=== PATIENT | female | born 1975 | race Caucasian/White ===

== ENCOUNTER 2018-01-14 15:00 | Outpatient (REF) | payer OTHER, SELFPAY ==
[2018-01-18 13:56] LABS: Chlamydia Result Negative; GC Result Negative; Specimen Description CERVIX
== END 2018-01-14 15:01 ==
LOC: LBN 15:00
PROVIDERS: PCP Family Medicine; Visit Provider Nurse Practitioner Women's Health
DX: Z11.3 Encounter for screening for infections with a predominantly sexual mode of transmission (principal)
CPT/HCPCS: 87491; 87591

== ENCOUNTER 2018-05-13 01:49 | Outpatient (CLI) | payer OTHER, SELFPAY ==
--- NOTE | 2018-05-13 11:30 | DI.MAMMO_ITS ---
SYMPTOM/DIAGNOSIS: SCREENING, FAMILY H/O BREAST CA Z80.3 BILATERAL SCREENING MAMMOGRAM: Mammograms were interpreted according to the usual protocol including computer analysis with CAD system, tomosynthesis and C view imaging. Comparison is made with 2016. The breasts are composed of heterogeneously dense fibroglandular tissue, breast density category C. No suspicious masses or suspicious microcalcifications are seen. There has been no significant change. IMPRESSION: Category 1-C, negative mammogram. Yearly screening mammography is recommended. [facility] ASSESSMENT OF FINDINGS: Negative. Category 1. Patient will receive a letter notifying them of these results. Bi-RADS category C. The breasts are heterogeneously dense, which may obscure small masses.
== END 2018-05-13 02:09 ==
PROVIDERS: PCP Family Medicine; Visit Provider Nurse Practitioner
DX: Z12.31 Encounter for screening mammogram for malignant neoplasm of breast (principal); Z80.3 Family history of malignant neoplasm of breast
CPT/HCPCS: 77063; 77067

== ENCOUNTER 2020-03-12 11:29 | Outpatient (REF) | payer OTHER, SELFPAY ==
--- NOTE | 2020-03-12 10:30 | PAPFT_PTH ---
PATIENT: Lenka Landeros LOC: [facility] U#:[id number] AGE/SX: 44/F ROOM: RE03/12/[address]: Agustina Pena NP : 1975 BED: DIS: 03/12/2020 SPEC #: [id number] RECD: 03/12/20 18:32 STATUS: MAGNUS REQ #: [id number] SEBASTIEN: 03/12/20 10:[address]: Agustina Pena NP DEPT: [facility] Cytology RECD BY: Shellie Catherine ENTERED: 03/12/20 18:32 SP TYPE: PAPFT OTHR DR: Isabela Mitchell Tissues: 1 - CX/ENDOCX FOR PAP SMEARS Procedures: PAP THIN PREP/UVM Screening HPV DNA PROBE Comments: [id number]
== END 2020-03-12 11:49 ==
LOC: LBN 11:29
PROVIDERS: PCP Family Medicine; Visit Provider Nurse Practitioner Women's Health
DX: Z12.4 Encounter for screening for malignant neoplasm of cervix (principal); Z11.51 Encounter for screening for human papillomavirus (HPV)
CPT/HCPCS: 88142; 87624

== ENCOUNTER 2020-04-04 01:47 | Outpatient (CLI) | payer OTHER, SELFPAY ==
--- NOTE | 2020-04-04 15:32 | DI.MAMMO_ITS ---
EXAM: MG MAMMO SCREENING CLINICAL HISTORY: screening,Z12.39 TECHNIQUE: Bilateral full field digital CC and MLO mammographic images were obtained with 3D tomosyn thesis and utilizing computer aided detection (CAD). COMPARISON: Available for comparison. FINDINGS: Masses/Architectural Distortion: None seen. Microcalcifications: No suspicious pleomorphic-type are seen. Skin Thickening/Nipple Retraction: None. IMPRESSION: 1. No significant interval change with no specific features of malignancy noted. 2. Unless there is more urgent need, screening mammography is recommended, as per [employer] guidelines. BI-RADS Category 1 - Negative Breast Density - Category C - Heterogeneously dense The mammogram demonstrates the patient's breast tissue is dense. Dense breast tissue is very common a nd is not abnormal but dense breast tissue can make it harder to find cancer on a mammogram. Also, de nse breast tissue may increase their breast cancer risk. This information about the result of the [facility] mogram report was provided to the patient to raise their awareness. Use this report when you speak wi th the patient about their risks for breast cancer, which includes their family history. At that time , you may recommend for more screening tests (Ultrasound or MRI) as they might be useful based on the ir risk. A negative radiographic report should not delay biopsy if a dominant or clinically suspicious mass is present. Up to ten percent of cancers are not identified on mammography. A negative report may reinforce clinical impression. Adenosis and dense breasts may obscure an underlying neoplasm. False positive reports average 6 to 10%. Patient will receive a letter notifying them of these results.
== END 2020-04-04 02:07 ==
PROVIDERS: PCP Family Medicine; Visit Provider Nurse Practitioner Women's Health
DX: Z12.31 Encounter for screening mammogram for malignant neoplasm of breast (principal)
CPT/HCPCS: 77063; 77067

== ENCOUNTER 2020-04-18 08:37 | Outpatient (REF) | payer OTHER, SELFPAY ==
[2020-04-18 21:51] LABS: HCT 43.1 % (36.0-46.0); HGB 13.8 g/dL (11.2-15.7); MCH 30.5 pg (27.0-33.0); MCV 95.4 fL (80-95); Platelet Count 260 10^3/uL (130-400); RBC 4.52 10^6/uL (3.93-5.22); RDW 13.2 % (11.7-14.6); RDW-SD 46.7 fL; WBC 6.48 10^3/uL (4.4-10.8)
[2020-04-18 22:10] LABS: ALT 20 U/L (14-59); AST 11 U/L (15-37); Calculated LDL 167 mg/dL (<100); Cholesterol 240 mg/dL (<200); HDL Cholesterol 49 mg/dL (40-60); T4 7.3 ug/mL (4.7-13.3); TSH 2.32 uIU/mL (0.36-3.74); Triglyceride 121 mg/dL (<150)
[2020-04-19 21:51] LABS: T3,Free 3.4 pg/mL (2.8-5.3)
[2020-04-19 22:05] LABS: T3, Total 127 ng/dL (97-169)
== END 2020-04-18 08:57 ==
LOC: NCHCN 08:37
PROVIDERS: PCP Family Medicine; Visit Provider Nurse Practitioner Family
DX: Z00.00 Encounter for general adult medical examination without abnormal findings (principal); R53.83 Other fatigue; Z13.220 Encounter for screening for lipoid disorders
CPT/HCPCS: 80061; 85027; 84436; 84443; 84450; 84460; 84480; 84481

== ENCOUNTER 2020-05-29 14:57 | Emergency (ER) | payer OTHER, SELFPAY ==
--- NOTE | 2020-05-29 14:59 | ED.GENADUL_ITS ---
Discharge Plan Disposition Patient Disposition: HOME Condition: Stable Discharge Details Clinical Impression: Allergic reaction, Lesion of mouth Primary Care Provider: Isabela Mitchell ED Provider: Radha Truong Home Meds and New Rx's Prescriptions: New prednisone 20 mg tablet See Rx Instructions .ROUTE .COMPLEX Qty: 12 RF: 0 mupirocin 2 % ointment 1 applic TP BID Qty: 15 RF: 0 epinephrine 0.3 mg/0.3 mL auto-injector 0.3 ml SC ONCE PRN (Reason: anaphylaxis) Qty: 2 RF: 0 Continued multivitamin [Daily Multi-Vitamin] Tablet 1 tab PO DAILY RF: 0 Calcium Magnesium + D 1 EACH tablet 1 cap PO DAILY RF: 0 Mirena 1 EACH intrauterine device 1 ea Intrauterine ONCE Qty: 1 RF: 0 pregabalin 75 mg capsule 75 mg PO TID RF: 0 Discharge Instructions Instructions: Impetigo (ED), General Allergic Reaction (ED) Additional Instructions: Refrain from contact with any exposure to peanut butter or peanuts in the future as this appears to likely be the cause of your symptoms. Take the steroids until finished. Use the topical antibiotic ointment as directed. If you develop any severe allergic reaction such as difficulty breathing or vomiting, return immediately to the emergency department. You should also use the EpiPen as directed. Follow-up with your primary care doctor in 1 week for reevaluation and for referral to an interior painter for allergy testing. Return to the emergency department with any worsening or new concerning symptoms. Discharge Data Discharge Date/Time-TO BE ENTERED AT DEPARTURE: 05/29/20 15:55 Discharge Physician: Radha Truong Medical Decision Making 44yo F w/ a h/o presents to the ED w/ a c/o lip swelling and weeping lesions on her lip since possible exposure to peanut butter yesterday. She was able to tolerate peanut butter as a child but over the last several years has had similar reactions. Today's episode was worse in that she has had weeping lesions and worsening swelling. Swelling since this morning has improved but still has lesions remaining. She has minimal edema around edges of lip but no intraoral edema including tongue and floor of mouth. She has tiny vesicles with yellow crusting noted on outer edge of upper and lower lip. No evidence of cellulitis. Normal oropharynx. No submandibular swelling, drooling or trismus. Neck normal to inspection. Her lungs are clear. Abdomen soft nontender. Suspect that this is most likely a reaction to peanut butter as she has had this in the past. Also consider possible secondary bacterial infection or signific ant inflammatory reaction. Will treat with oral steroids and topical mupirocin. Patient also given an EpiPen. Medical Records Medical records reviewed: Yes I reviewed the patient's medical records. HPI General Mode of arrival: ambulatory . Date/Time Provider Initiated Documentation: 05/29/20 14:57 . Limitations to Documentation: no limitations . Information obtained by: patient . HPI Narrative: Patient is a 44-year-old female who presents with swelling around her lips and tingling around her face that started yesterday afternoon after possible exposure to peanut butter. Patient states she made herself an almond butter and jelly sandwich and thinks that the knife that was used was possibly used by her family for regular peanut butter. She states she was able to tolerate peanut butter as a child but over the past several years has had similar reactions of lip swelling after possible peanut butter or peanut exposure. She states after the possible exposure yesterday she noted swelling and tingling around her lip and face around her lips. She states she felt some tingling in her upper body but this then resolved. She states she awoke this morning to significant swelling of both of her lips which has since improved since then. She states she notes today that she has had weeping lesions around her lips which have had some yellow fluid leakage. She denies any fever, tongue swelling, difficulty swallowing, throat swelling, shortness of breath, wheezing, nausea, vomiting or abdominal pain. She denies any other known exposures. She states she thought possibly it could be due to Chapstick but has used this before and has had no reaction. She states she called her primary care doctor today and they advised her to come to the ER for further evaluation. She denies any chance of . Related Data Home Medications Medication Instructions Recorded Confirmed Calcium Magnesium + D 1 cap PO DAILY 03/27/15 05/29/20 Mirena 1 ea INTRAUTERINE ONCE #1 implant 01/14/18 05/29/20 multivitamin 1 tab PO DAILY 03/12/20 05/29/20 epinephrine 0.3 ml SC ONCE PRN #2 each 05/29/20 mupirocin 1 applic TP BID #15 gm 05/29/20 prednisone See Rx Instructions .ROUTE 05/29/20 .COMPLEX #12 tab pregabalin 75 mg PO TID 05/29/20 05/29/20 Previous Rx's Medication Instructions Recorded Mirena 1 ea INTRAUTERINE ONCE #1 implant 01/14/18 epinephrine 0.3 ml SC ONCE PRN #2 each 05/29/20 mupirocin 1 applic TP BID #15 gm 05/29/20 prednisone See Rx Instructions .ROUTE 05/29/20 .COMPLEX #12 tab Allergies Allergy/AdvReac Type Severity Reaction Status Date / Time peanut Allergy Severe Unverified 03/04/18 08:33 Penicillins Allergy Severe respiratory Unverified 03/04/18 08:33 depression codeine AdvReac Severe Unverified 03/04/18 08:33 opium (anthroposophic) AdvReac Severe severe Unverified 03/04/18 08:33 vomiting. Review of Systems All systems reviewed & are unremarkable except as noted in HPI and below Constitutional Constitutional: Reports as per HPI, Denies chills and Denies fever(s) Eyes Eyes: Denies blurry vision ENT Ears, Nose, Mouth, and Throat: Denies dizziness, Denies sore throat and Denies throat swelling Cardiovascular Cardiovascular: Denies chest pain and Denies dyspnea Respiratory Respiratory: Denies cough and Denies dyspnea Gastrointestinal Gastrointestinal: Denies abdominal pain, Denies diarrhea and Denies vomiting Genitourinary Genitourinary: Denies hematuria and Denies dysuria Musculoskeletal Musculoskeletal: Denies back pain and Denies numbness Integumentary/Breasts Skin/Breast: Denies lesions and Denies rash Neurologic Neurologic: Denies dizziness, Denies localized weakness and Denies numbness Allergic/Immunologic Allergic/Immunologic: Denies throat swelling [facility] Medical History (Updated 05/29/20 @ 20:54 by Radha Truong DO) Fibromyalgia (10/24/14) IUD surveillance Osteoarthrosis (10/24/14) Surgical History (Updated 05/29/20 @ 20:54 by Radha Truong DO) No significant past surgical history Family History (Updated 03/12/20 @ 10:29 by Agustina Pena NP) Sister Personal history of malignant neoplasm breast ca 36 yo Mother Breast cancer Stage 4, chosen not to treat Father Heart disease Grandfather Colon cancer Other Leukemia Ovarian tumor (benign) Social History Smoking/Tobacco Use Status: Never Smoking risk assessment performed?: Yes Drug use: Never Do you feel safe at home: Yes Do you feel safe in your relationship?: Yes Female Reproductive History Menstrual control method: progestin IUCD History History 4 Para 4 Hx # Term Pregnancies Multiple births Hx # Pregnancies Ectopic pregnancies AB induced Hx Number of Living Children AB spontaneous Exam Const General: cooperative, healthy appearing and no acute distress HENMT Head: normal to inspection Ears: hearing grossly normal bilaterally, external ears normal and TM's normal bilaterally General nose exam: external nose normal Mouth: tongue normal, no drooling, no trismus and other (There is minimal edema noted around lips.) Mouth/tongue images: 1. 2 small vesicles approximately 2 mm in size with yellow crusting. There is no active drainage. No significant tenderness to palpation. 2. Very small 1 mm vesicles with minimal erythema and yellow crusting. No significant tenderness palpation. No active drainage. Teeth and gingiva: dentition normal Throat: posterior oropharynx normal Eyes General: appearance normal, both eyes and all related structures Pupils: PERRL EOM: EOM intact bilaterally Neck Neck: normal visual inspection, no meningeal signs, trachea midline, supple, no anterior neck swelling and No submandibular swelling Lymphatic: no lymphadenopathy noted Chest Chest: normal inspection of the chest and no tenderness Resp Effort & Inspection: normal respiratory effort and able to speak in complete sentences Auscultation: clear to auscultation bilaterally Cardio Rate: regular rate Rhythm: regular rhythm GI Inspection: normal to inspection Palpation: soft, not firm, not rigid and nontender Auscultation: normal bowel sounds Back/Spine/Pelvis Thoracic/Lumbar Spine: thoracic and lumbar spine normal to inspection Pelvis: no pain with anterior-posterior compression Skin General skin exam: no rashes or lesions noted Neuro General: patient alert, patient awake and patient oriented x3 Cognition: normal cognition Speech: speech normal Motor: muscle tone normal throughout Sensory Exam: no sensory deficits noted Extrem General: normal to inspection, full ROM, capillary refill normal, no calf tenderness bilaterally and no edema Psych Appearance: grossly normal Mental Status: mental status grossly normal Speech and Movement: speech and movement normal Affect: normal affect
[2020-05-29 15:00] VITALS: BP 143/79; PULSE 77; RESP 17; TEMP 36.6; O2SAT 98
== END 2020-05-29 15:55 | disposition home or self-care (01) ==
PROVIDERS: Emergency Provider Physician Assistant; PCP Family Medicine
DX: T78.01XA Anaphylactic reaction due to peanuts, initial encounter (principal); S00.521A Blister (nonthermal) of lip, initial encounter; R60.0 Localized edema; X58.XXXA Exposure to other specified factors, initial encounter; Z91.010 Allergy to peanuts
CPT/HCPCS: 99283; 99284

== ENCOUNTER 2020-12-22 13:04 | Outpatient (REF) | payer OTHER, SELFPAY ==
[2020-12-22 21:28] LABS: Abs Immature Grans 0.03 10^3/uL (0.0-0.06); Absolute Basophil Count 0.03 10^3/uL (0.0-0.2); Absolute Eosinophil Count 0.26 10^3/uL (0.0-0.7); Absolute Lymphocyte Count 1.55 10^3/uL (1.2-3.4); Absolute Monocyte Count 0.63 10^3/uL (0.1-0.8); Basophils % 0.4; Eosinophils % 3.1; HCT 41.9 % (36.0-46.0); HGB 13.6 g/dL (11.2-15.7); Immature Grans % 0.4; Lymphocytes % 18.2; MCH 31.1 pg (27.0-33.0); MCHC 32.5 % (32.0-36.0); MCV 95.9 fL (80-95); MPV 11.1 fL (8.0-11.0); Monocytes % 7.4; Neutrophils % 70.5; Nucleated RBC 0 %; Platelet Count 246 10^3/uL (130-400); RBC 4.37 10^6/uL (3.93-5.22); RDW 12.1 % (11.7-14.6); RDW-SD 43.5 fL
[2020-12-22 21:39] LABS: ALT 20 U/L (14-59); AST 12 U/L (15-37); Albumin 3.7 g/dL (3.4-5.0); Alkaline Phosphatase 47 U/L (46-116); Anion Gap 8.2 mmol/L (3-11); BUN 10 mg/dL (7-18); Bilirubin, Total 0.3 mg/dL (0.2-1.0); CO2 27.8 mmol/L (21.0-32.0); CREATININE 0.7 mg/dL (0.55-1.02); Calcium 8.5 mg/dL (8.5-10.1); Chloride 107 mmol/L (98-107); Glucose 92 mg/dL (74-106); Potassium 4.1 mmol/L (3.5-5.1); Sodium 143 mmol/L (136-145); Total Protein 6.7 g/dL (6.4-8.2)
== END 2020-12-22 13:05 | disposition home or self-care (01) ==
LOC: LBN 13:04
PROVIDERS: PCP Family Medicine; Visit Provider Physician Assistant Medical
DX: R10.9 Unspecified abdominal pain (principal)
CPT/HCPCS: 80053; 85025

== ENCOUNTER 2021-02-21 11:23 | Outpatient (CLI) | payer OTHER, SELFPAY ==
[2021-02-21 14:58] LABS: Abs Immature Grans 0.03 10^3/uL (0.0-0.06); HCT 41.1 % (36.0-46.0); HGB 13.3 g/dL (11.2-15.7); MCH 30.8 pg (27.0-33.0); MCHC 32.4 % (32.0-36.0); MCV 95.1 fL (80-95); MPV 10.3 fL (8.0-11.0); Nucleated RBC 0 %; Platelet Count 253 10^3/uL (130-400); RBC 4.32 10^6/uL (3.93-5.22); RDW 12.5 % (11.7-14.6); RDW-SD 43.6 fL; WBC 9.78 10^3/uL (4.4-10.8)
[2021-02-21 15:15] LABS: Absolute Lymphocyte Count 2.84 10^3/uL (1.2-3.4); Absolute Monocyte Count 0.39 10^3/uL (0.1-0.8); Absolute Neutrophil Count 6.55 10^3/uL (1.2-6.7)
[2021-02-21 15:16] LABS: Diff Comment Manual Differential; RBC Morphology Normal
[2021-02-21 16:23] LABS: ALT 20 U/L (14-59); AST 15 U/L (15-37); Alkaline Phosphatase 45 U/L (46-116); Anion Gap 6.3 mmol/L (3-11); BUN 8 mg/dL (7-18); Bilirubin, Total 0.5 mg/dL (0.2-1.0); CO2 30.7 mmol/L (21.0-32.0); CREATININE 0.9 mg/dL (0.55-1.02); Calcium 9.1 mg/dL (8.5-10.1); Chloride 106 mmol/L (98-107); Glucose 86 mg/dL (74-106); Sodium 143 mmol/L (136-145)
== END 2021-02-21 11:24 | disposition home or self-care (01) ==
LOC: LBO 11:26
PROVIDERS: PCP Family Medicine; Visit Provider Dentist Oral and Maxillofacial Pathology
DX: G50.8 Other disorders of trigeminal nerve (principal)
CPT/HCPCS: 36415; 80053; 85025

== ENCOUNTER 2021-03-21 01:25 | Outpatient (CLI) | payer OTHER, SELFPAY ==
--- NOTE | 2021-03-21 | DI.MRI_ITS ---
Exam(s) MR ORBIT FACIAL NECK WO/W EXAM: MR ORBIT FACIAL NECK WO/W CLINICAL HISTORY: ATYPICAL FACIAL PAIN,G50.1 TECHNIQUE: Multiplanar multisequence MRI was performed. CONTRAST MATERIAL: IV Contrast: mL of Magnevist contrast administered. COMPARISON: No exams were available for comparison FINDINGS: Axial FLAIR whole brain sequence reveals no abnormal intra-axial signal. Ventricles are not enlarged or shifted. No significant findings in the orbits. Vessels: No evidence of aneurysm. No significant stenosis nor occlusion. A thin posterior communicati ng artery is noted on the left side of the zgiakh-mn-Umpwap. Pituitary gland/cavernous sinuses: No evidence of pituitary mass nor mass in the paranasal sinuses. I ntracavernous internal carotid arteries exhibit normal flow void. Internal auditory canals: There are no masses in the cerebellopontine angles. No evidence of intra ca nalicular mass. Seventh and 8th cranial nerves appear unremarkable bilaterally. Trigeminal (V) cranial nerves: No abnormal signal in the hananh. Both trigeminal nerves appear unremark able as they course anteriorly towards Meckel's cave, without evidence of mass in these nerves nor co mpression by adjacent normal extra-axial structures. No obvious compression by vascular structures. T he superior cerebellar arteries (which are often the culprit vessels) do not appear to impinge upon t he extra-axial 5th nerves Third (III) cranial nerves: Both appear unremarkable within the interpeduncular fossa as they head f orward towards the cavernous sinuses. OTHER: There is no abnormal enhancing extra-axial mass contiguous with the left side of the medulla oblongat a, this slightly lobulated mass measuring 7 x 10 by 8 millimeters, in proximity to cranial nerve 9 (I X). This exhibits relative uniform enhancement post contrast injection. Main differential diagnosis w ould be metastases, or primary tumor, meningioma or otherwise. IMPRESSION: 1. No mass within or adjacent to the 5th-trigeminal nerves and no evidence of obvious adjacent tingin g vascular loop. 2. Incidentally noted is a lobulated enhancing lesion adjacent to the left side of the medulla measur ing approximately 7 x 10 x 8 millimeters. Suspicious for neoplasm. DATA REPOSITORY:
[2021-03-21] MEDS: Gadoterate meglumine 20 ML VIAL 10 ML IVP (08:44)
[2021-03-21] MEDS: Normal Saline Flush 10 ML SYR IVP (08:47)
--- NOTE | 2021-03-21 10:36 | DI.VRAD_ITS ---
PROCEDURE INFORMATION: Exam: MR Face Without and With Contrast Exam date and time: 03/21/2021 9:09 AM Age: 45 years old Clinical indication: Other: Atypical facial pain; Additional info: Trigeminal nerve issue to the last 10 yrs, . facial pain on the RT side getting worse for the last month . TECHNIQUE: Imaging protocol: MR of the face was performed without and with contrast. Contrast material: 10 MMOL DOTAREM; Contrast volume: 19 ml; Contrast route: INTRAVENOUS (IV); COMPARISON: CT cranial 02/03/2019 9:11 AM FINDINGS: Orbital cavity: Orbits unremarkable with symmetric nonenlarged extra-ocular muscles, symmetric nonenlarged lacrimal glands, and no evidence mass. Nasopharynx: Unremarkable. Oropharynx: Unremarkable. Submandibular/Parotid glands: Visualized submandibular and parotid glands are unremarkable. Paranasal sinuses: There is a very small left maxillary sinus retention cyst or polyp. Brain: FLAIR images through brain show no abnormal signal or evidence white matter disease. Is a septum is mildly deviated to right. There is 7 mm x 10 mm x 8.5 mm lobular enhancing extra-axial mass along the left lateral aspect of medulla. This is in proximity to cranial nerves 9. This is separate from cranial nerves 7/ 8 complex. This is an unusual appearance. Would consider schwannoma, ependymoma, choroid plexus tumor, vascular lesion such as hemangioma, metastases, and meningioma (although atypical appearance). There is no abnormal signal in brainstem along course of trigeminal nuclei. On axial images, small vascular channels come close to the cisternal left trigeminal nerve, however these are seen to be by spinal fluid on the coronal T2 weighted images and not directly contact the nerve. No vascular channels are seen to contact the cisternal course of the right trigeminal nerve. There is normal fluid signal within Meckel's caves bilaterally. Cavernous sinuses are symmetric and show no enlargement or evidence of mass. There is no contrast enhancement of cisternal trigeminal nerves. There is no evidence of abnormal parenchymal contrast enhancement. Lymph nodes: No lymphadenopathy. Soft tissues: Parotid and submandibular glands appear symmetric and nonenlarged with no evidence mass. Squilgeer spaces are unremarkable. There are normal fat planes in superior orbital fissures, pterygopalatine fossas and parapharyngeal spaces. There is symmetric and unremarkable appearance of region of foramen ovale and rotundum bilaterally. Bones/joints: There is no neural foraminal narrowing or spinal stenosis in upper cervical spine at C2-C3 through C4-C5. There is no abnormal signal within the visualized upper spinal cord. IMPRESSION: 1. Small mass along left side of medulla with differential diagnosis as above. 2. No mass or explanation for trigeminal neuralgia. Dictated and Authenticated by: Esmer Flores MD. Ordering:SHLOMO Mar MD
== END 2021-03-21 01:45 ==
PROVIDERS: PCP Family Medicine; Visit Provider Family Medicine
DX: G50.1 Atypical facial pain (principal); R93.89 Abnormal findings on diagnostic imaging of other specified body structures
CPT/HCPCS: 70543

== ENCOUNTER 2021-05-21 01:54 | Outpatient (CLI) | payer OTHER, SELFPAY ==
--- NOTE | 2021-05-21 | DI.CT_ITS ---
Exam(s) CT CHEST/ABD/PEL W EXAM: CT CHEST/ABD/PEL W CLINICAL HISTORY: BRAIN MASS,PRIMARY,? METS,G93.89 TECHNIQUE: CT examination of the chest, abdomen, and pelvis was performed utilizing intravenous inf usion of 100 cc of Omnipaque 350 with biphasic hepatic imaging. Oral contrast was also administered. COMPARISON: No exams were available for comparison FINDINGS: Lungs are clear. No pleural effusion. No pleural based mass. No mediastinal or hilar adenopathy. No axillary or supraclavicular adenopathy. Tracheobronchial rosario e appears intact. No evidence of pulmonary embolic disease. Unremarkable appearance of thoracic aorta and major branch vessels. The liver appears normal except for the presence of a few fluid attenuation well-circumscribed lesion s, the largest in the right lobe measuring 31 millimeters in greatest diameter. The appearance is co nsistent with multiple hepatic cysts. Spleen is unremarkable in appearance. Pancreas appears intact. Adrenals appear normal. Kidneys are unremarkable in appearance with no renal mass, or hydronephrosis. There is a tiny nonobst ructing left renal stone. Abdominal aorta and major visceral branches appear intact. No focal bowel pathology. Appendix is normal. No evidence of diverticulitis. No abdominal or pelvic adenopathy. No significant abdominal wall hernia. No focal bony lesion identified on scanning of the chest, abdomen, and pelvis. The uterus contains an IUD. Unremarkable follicular appearance of the ovaries by CT criteria. IMPRESSION: Negative CT of the chest, abdomen, and pelvis with biphasic hepatic imaging. RADIATION DOSE DELIVERED: 2,128.17mGy.cm Total DLP 2,128.17mGy.cm Total DLP 23.14mGy CTDIvol RADIATION OPTIMIZATION: All CT scans at this facility use at least one of these dose optimization te chniques: automated exposure control; mA and/or kV adjustment per patient size (includes targeted exa ms where dose is matched to clinical indication); or iterative reconstruction.
[2021-05-21] MEDS: Omnipaque 350 MG/ML 50 ML BTL IJ (09:22)
[2021-05-21] MEDS: Breeza Beverage 473 ML BTL 946 ML PO (09:23)
[2021-05-21] MEDS: Omnipaque 350 MG/ML 100 ML BTL IJ (11:07)
[2021-05-21] MEDS: Normal Saline Flush 10 ML SYR IVP (11:09)
== END 2021-05-21 02:14 ==
PROVIDERS: PCP Family Medicine
DX: G93.89 Other specified disorders of brain (principal); K76.89 Other specified diseases of liver; N20.0 Calculus of kidney; Z97.5 Presence of (intrauterine) contraceptive device
CPT/HCPCS: 74177; 71260; J3490; Q9967

== ENCOUNTER 2021-05-22 22:06 | Emergency (ER) | payer OTHER, SELFPAY ==
[2021-05-22 22:18] VITALS: BP 132/78; PULSE 83; RESP 18; TEMP 36.5; O2SAT 98
--- NOTE | 2021-05-22 22:38 | ED.GENADUL_ITS ---
Discharge Plan Disposition Patient Disposition: HOME Condition: Improving Discharge Details Clinical Impression: Right leg swelling Primary Care Provider: Isabela Mitchell ED Provider: Mayo Jolley Home Meds and New Rx's Prescriptions: Continued multivitamin [Daily Multi-Vitamin] Tablet 1 tab PO DAILY RF: 0 Calcium Magnesium + D 1 EACH tablet 1 cap PO DAILY RF: 0 Mirena 1 EACH intrauterine device 1 ea Intrauterine ONCE Qty: 1 RF: 0 pregabalin 75 mg capsule 75 mg PO DAILY RF: 0 prednisone 20 mg tablet See Rx Instructions .ROUTE .COMPLEX Qty: 12 RF: 0 epinephrine 0.3 mg/0.3 mL auto-injector 0.3 ml SC ONCE PRN (Reason: anaphylaxis) Qty: 2 RF: 0 Discharge Instructions Additional Instructions: Our radiology department will call you tomorrow to arrange timing for your ultrasound. The radiology office #[phone]. Return to the ER for any acute concerns in the interim. Discharge Data Discharge Date/Time-TO BE ENTERED AT DEPARTURE: 05/22/21 22:53 Medical Decision Making 45-year-old female presents with intermittent episodes of right lower extremity pain and swelling over approximately 3 weeks time. She is recently been treated with high-dose prednisone which she is tapering off. This is resulted in some edema and weight gain. She has not had any chest pain or shortness of breath. On exam the patient does have mild edematous changes to the bilateral lower extremity, I do not appreciate significant asymmetry. Discussed with her obtaining follow-up ultrasound tomorrow morning. We discussed the risks and benefits of anticoagulation with a shot of Lovenox overnight which she wishes to defer. Patient is stable and appropriate for outpatient plan of care for tomorrow as outlined above HPI General Mode of arrival: ambulatory . Date/Time Provider Initiated Documentation: 05/22/21 22:07 . Limitations to Documentation: no limitations . Information obtained by: patient . History of Present Illness 45 year old F presents to the emergency department with the chief complaint of Right leg pain and swelling, described as moderate, Quality is described as dull, and is localized to the right and lower extremity. Patient reports no radiation. Patient started experiencing this day(s) and it has been intermittent. No relieving factors improve symptom(s), No exacerbating factors reported . Patient notes denies chest pain, shortness of breath and syncope. Patient did receive the following treatments prior to arrival, none Related Data Home Medications Medication Instructions Recorded Confirmed Calcium Magnesium + D 1 cap PO DAILY 03/27/15 05/22/21 Mirena 1 ea INTRAUTERINE ONCE #1 implant 01/14/18 05/22/21 multivitamin 1 tab PO DAILY 03/12/20 05/29/20 epinephrine 0.3 ml SC ONCE PRN #2 each 05/29/20 05/22/21 prednisone See Rx Instructions .ROUTE 05/29/20 .COMPLEX #12 tab pregabalin 75 mg PO TID 05/29/20 05/29/20 Previous Rx's Medication Instructions Recorded Mirena 1 ea INTRAUTERINE ONCE #1 implant 01/14/18 epinephrine 0.3 ml SC ONCE PRN #2 each 05/29/20 prednisone See Rx Instructions .ROUTE 05/29/20 .COMPLEX #12 tab Allergies Allergy/AdvReac Type Severity Reaction Status Date / Time peanut Allergy Severe Verified 05/23/21 15:56 Penicillins Allergy Severe respiratory Verified 05/23/21 15:56 depression codeine AdvReac Severe Verified 05/23/21 15:56 opium (anthroposophic) AdvReac Severe severe Verified 05/23/21 15:56 vomiting. General Stated Complaint: GenMedical NORMA: 3 Review of Systems Narrative: Recent course of prednisone for trigeminal neuralgia with resultant edema and 20 pound weight gain. No chest pain or shortness of breath. 6 systems reviewed and otherwise negative PFSH All Active Problems Right leg swelling (Acute) IUD surveillance (Acute) Vitamin D deficiency (Acute 10/24/14) Family history of breast cancer in sister (Acute 11/14/14) sister at 36 yo, lumpectomy mother, postmenopausal, stage 4, no tx Medical History Fibromyalgia (10/24/14) Osteoarthrosis (10/24/14) Surgical History No significant past surgical history Family History Sister Personal history of malignant neoplasm breast ca 36 yo Mother Breast cancer Stage 4, chosen not to treat Father Heart disease Grandfather Colon cancer Other Leukemia Ovarian tumor (benign) Social History Smoking/Tobacco Use Status: Never Smoking risk assessment performed?: Yes Drug use: Never Substance use type: does not use Do you feel safe at home: Yes Do you feel safe in your relationship?: Yes Female Reproductive History Menstrual control method: progestin IUCD History History 4 Para 4 Hx # Term Pregnancies Multiple births Hx # Pregnancies Ectopic pregnancies AB induced Hx Number of Living Children AB spontaneous Exam Narrative Exam Narrative: GEN: awake, alert, oriented 3. Pleasant, well groomed, interactive. HEAD: Normocephalic, atraumatic ENT: Mucous membranes moist, oropharynx unremarkable, External ear exam unremarkable EYES: PERRL, EOMI NECK: Full ROM, no BERENICE, no menigismus CHEST/RESP: Nontender, clear to auscultation bilateral, no wheeze/rhonchi/rales CARDIOVASCULAR: RRR, no murmur, rub elissa. 2+ Rad pulse bilateral EXT: Full ROM, 1+ edema symmetric bilaterally pretibial, no cords appreciated, no masses. Neuro: Grossly normal neurologic exam, conversant, interactive. Psych: Speech fluent, thoughts congruent, affect normal Course Vital Signs Vital signs: Vital Signs Temperature 36.5 C 05/22/21 22:18 Pulse 83 05/22/21 22:18 Respiratory Rate 18 05/22/21 22:18 Blood Pressure 132/78 05/22/21 22:18 Pulse Oximetry 98 05/22/21 22:18 Temperature 36.5 C 05/22/21 22:18 Temperature Source Tympanic 05/22/21 22:18 Pulse 83 05/22/21 22:18 Respiratory Rate 18 05/22/21 22:18 Respiratory Effort 05/22/21 22:24 Respiratory Depth Normal 05/22/21 22:24 Respiratory Pattern Normal 05/22/21 22:24 Blood Pressure 132/78 05/22/21 22:18 Blood Pressure Position Supine 05/22/21 22:18 Pulse Oximetry 98 05/22/21 22:18 Oxygen Delivery Method Room Air 05/22/21 22:18 Oxygen Flow Rate 0 05/22/21 22:18 Pain Level 7 05/22/21 22:18
== END 2021-05-22 22:53 | disposition home or self-care (01) ==
PROVIDERS: Emergency Provider Emergency Medicine; PCP Family Medicine
DX: R22.41 Localized swelling, mass and lump, right lower limb (principal); M79.604 Pain in right leg; R60.0 Localized edema; T38.0X5A Adverse effect of glucocorticoids and synthetic analogues, initial encounter
CPT/HCPCS: 99281; 99282

== ENCOUNTER 2021-05-23 15:38 | Emergency (ER) | payer OTHER, SELFPAY ==
[2021-05-23 15:44] VITALS: BP 129/62; PULSE 82; RESP 16; TEMP 36.6; O2SAT 97
--- NOTE | 2021-05-23 16:13 | W.ED.GENAD ---
Discharge Plan Disposition Patient Disposition: HOME Condition: Stable Discharge Details Clinical Impression: Right leg swelling Primary Care Provider: Isabela Mitchell ED Provider: Josh Hidalgo Home Meds and New Rx's Prescriptions: Continued multivitamin [Daily Multi-Vitamin] Tablet 1 tab PO DAILY RF: 0 Calcium Magnesium + D 1 EACH tablet 1 cap PO DAILY RF: 0 Mirena 1 EACH intrauterine device 1 ea Intrauterine ONCE Qty: 1 RF: 0 pregabalin 75 mg capsule 75 mg PO DAILY RF: 0 prednisone 20 mg tablet See Rx Instructions .ROUTE .COMPLEX Qty: 12 RF: 0 epinephrine 0.3 mg/0.3 mL auto-injector 0.3 ml SC ONCE PRN (Reason: anaphylaxis) Qty: 2 RF: 0 Discharge Instructions Additional Instructions: Ultrasound was negative. Please watch for new or worsening symptoms and return to the ER for any concerns. Otherwise rest, elevate, cool and/or warm compresses every 2 hours for 20 minutes. As we discussed compression stockings may also be beneficial. I recommend reaching out your primary care provider after the holiday to discuss your ongoing symptoms need for outpatient reevaluation if symptoms persist. Discharge Data Discharge Date/Time-TO BE ENTERED AT DEPARTURE: 05/23/21 16:27 Medical Decision Making 45-year-old female presents for ultrasound results of a right lower extremity ultrasound rule out DVT. Clinically she appears well, nontoxic. Denies chest pain or shortness of breath. Clinically she has mild swelling to her right lower extremity with some ecchymosis but no palpable cord or erythema. Ultrasound reviewed, official radiology report is negative. Discussed ultrasound findings with patient. She is relieved and has no additional questions or concerns. Comfortable discharge at this time. Standard discharge and return precautions provided. Otherwise she will follow up with her primary care provider This documentation was generated using [employer] system, please disregard any oddities of phrase or misspellings. Medical Records Medical records reviewed: Yes I reviewed the patient's medical records. Imaging Data Radiologic Study: Attestation: I personally reviewed and interpreted this imaging study as follows: Imaging: Ultrasound Radiologist's impression: Exam(s) US LOWER EXTREMITY VENOUS RT EXAM: US LOWER EXTREMITY VENOUS RT CLINICAL HISTORY: RT LEG SWELLING, ? DVT TECHNIQUE: Grayscale, color, and doppler imaging of the deep venous system of the right lower extremity was performed. COMPARISON: No exams were available for comparison FINDINGS: There is no evidence of intraluminal thrombus and there is normal compression and augmentation demonstrated within the common femoral vein, femoral vein, and popliteal vein. In the ipsilateral calf the interrogated veins also exhibit normal compression/ augmentation properties. The ipsilateral saphenofemoral junction is patent. IMPRESSION: 1. No evidence of DVT in the right lower extremity. HPI General Mode of arrival: ambulatory. Date/Time Provider Initiated Documentation: 05/23/21 15:53. Limitations to Documentation: no limitations. Information obtained by: patient. HPI Narrative: Patient is a 45-year-old female, past medical history that includes osteoarthritis, fibromyalgia, [place]'s disease, trigeminal neuralgia, presents to the ER today for ultrasound results status post outpatient ultrasound obtained today resulting from a ER visit yesterday for right leg pain and swelling. Patient states that she continues to have some pain in her right calf but actually feels that the swelling is improving. Denies fever, redness, chest pain or shortness of breath. Patient states that she was recently treated with steroids, Lyrica, Tylenol for a flareup of her neuralgia and feels as though it is likely a side effect of her medications. Denies hx of DVT or PE. Related Data Home Medications Medication Instructions Recorded Confirmed Calcium Magnesium + D 1 cap PO DAILY 03/27/15 05/22/21 Mirena 1 ea INTRAUTERINE ONCE #1 implant 01/14/18 05/22/21 multivitamin 1 tab PO DAILY 03/12/20 05/29/20 epinephrine 0.3 ml SC ONCE PRN #2 each 05/29/20 05/22/21 prednisone See Rx Instructions .ROUTE 05/29/20 .COMPLEX #12 tab pregabalin 75 mg PO DAILY 05/29/20 05/23/21 Previous Rx's Medication Instructions Recorded Mirena 1 ea INTRAUTERINE ONCE #1 implant 01/14/18 epinephrine 0.3 ml SC ONCE PRN #2 each 05/29/20 prednisone See Rx Instructions .ROUTE 05/29/20 .COMPLEX #12 tab Allergies Allergy/AdvReac Type Severity Reaction Status Date / Time peanut Allergy Severe Verified 05/23/21 15:56 Penicillins Allergy Severe respiratory Verified 05/23/21 15:56 depression codeine AdvReac Severe Verified 05/23/21 15:56 opium (anthroposophic) AdvReac Severe severe Verified 12/30/21 15:56 vomiting. General Stated Complaint: Vascular NORMA: 5 Review of Systems Constitutional Constitutional: Denies fever(s) Cardiovascular Cardiovascular: Denies chest pain and Denies dyspnea Respiratory Respiratory: Denies dyspnea Musculoskeletal Musculoskeletal: Denies numbness and Denies tingling Integumentary/Breasts Skin/Breast: Denies rash Neurologic Neurologic: Denies numbness and Denies tingling PFSH All Active Problems Right leg swelling (Acute) IUD surveillance (Acute) Vitamin D deficiency (Acute 10/24/14) Family history of breast cancer in sister (Acute 11/14/14) sister at 36 yo, lumpectomy mother, postmenopausal, stage 4, no tx Medical History Fibromyalgia (10/24/14) Osteoarthrosis (10/24/14) Surgical History No significant past surgical history Family History Sister Personal history of malignant neoplasm breast ca 36 yo Mother Breast cancer Stage 4, chosen not to treat Father Heart disease Grandfather Colon cancer Other Leukemia Ovarian tumor (benign) Social History Smoking/Tobacco Use Status: Never Smoking risk assessment performed?: Yes Drug use: Never Substance use type: does not use Do you feel safe at home: Yes Do you feel safe in your relationship?: Yes Female Reproductive History Menstrual control method: progestin IUCD History History 4 Para 4 Hx # Term Pregnancies Multiple births Hx # Pregnancies Ectopic pregnancies AB induced Hx Number of Living Children AB spontaneous Exam Const General: cooperative, healthy appearing, comfortable and no acute distress Orientation: alert and awake HENMT Head: normal to inspection, normocephalic and atraumatic Eyes General: appearance normal, both eyes and all related structures Conjunctivae: conjunctivae normal Neck Neck: normal visual inspection, trachea midline and supple Resp Effort & Inspection: normal respiratory effort and able to speak in complete sentences Cardio Rate: regular rate Rhythm: regular rhythm Skin General skin exam: no rashes or lesions noted Neuro General: patient alert, patient awake, moves all extremities and no focal motor deficits Cognition: normal cognition Speech: speech normal Gait: normal gait Motor: muscle tone normal throughout Sensory Exam: no sensory deficits noted Extrem General: full ROM and capillary refill normal Other: Right calf is slightly larger when compared to her left calf. Posterior medial aspect the area of ecchymosis to the right calf but without erythema, warmth. Skin is intact. Neuro, vascular, tendon intact. No palpable cord noted. Normal dorsalis pedal pulse Psych Appearance: grossly normal Mental Status: mental status grossly normal Course Vital Signs Vital signs: Vital Signs Temperature 36.6 C 05/23/21 15:44 Pulse 82 05/23/21 15:44 Respiratory Rate 16 05/23/21 15:44 Blood Pressure 129/62 05/23/21 15:44 Pulse Oximetry 97 05/23/21 15:44 Temperature 36.6 C 05/23/21 15:44 Temperature Source Skin 05/23/21 15:44 Pulse 82 05/23/21 15:44 Respiratory Rate 16 05/23/21 15:44 Respiratory Effort 05/23/21 15:48 Blood Pressure 129/62 05/23/21 15:44 Blood Pressure Position Sitting 05/23/21 15:44 Pulse Oximetry 97 05/23/21 15:44 Oxygen Delivery Method Room Air 05/23/21 15:44 Oxygen Flow Rate 0 05/23/21 15:44 Pain Level 3 05/23/21 15:44 PAWSS Have you Been Recently Intoxicated or Drunk Within the Last 30 days?: No Have you Ever Experienced Previous Episodes of Alcohol Withdrawal?: No Have you ever Experienced Withdrawal Seizures?: No Have you ever Experienced Delirium Tremens(DT)s?: No Have you ever undergone Alcohol Rehabilitation Treatment (i.e, inpt ot outpatient treatment programs)?: No Have you ever Experienced Blackouts?: No Have you ever Combined Alcohol with other Downers within the last 90 days?: No Have you ever Combined Alcohol with any other Substance of Abuse during the last 90 days?: No Positive Blood Alcohol level on Presentation? [PCS.BAL]: No Evidence of Increased Autonomic Activity (i.e. HR>120, tremor, sweating, agitation, nausea)?: No Result: 0
== END 2021-05-23 16:27 | disposition home or self-care (01) ==
PROVIDERS: Emergency Provider Physician Assistant; PCP Family Medicine
DX: R22.41 Localized swelling, mass and lump, right lower limb (principal); Z71.2 Person consulting for explanation of examination or test findings

== ENCOUNTER 2021-07-20 11:11 | Emergency (ER) | payer OTHER, SELFPAY ==
[2021-07-20 11:33] VITALS: BP 116/67; PULSE 82; RESP 14; TEMP 36.8; O2SAT 98
--- NOTE | 2021-07-20 11:45 | DI.CT_ITS ---
Exam(s) CT CHEST PE CTA EXAM: CT CHEST PE CTA CLINICAL HISTORY: cyanosis, right flank pain, concern for PE. TECHNIQUE: Imaging Protocol: Axial CT angiography was performed with multi-slice acquisition and mu lti-planar and/or 3D reconstructions. CONTRAST MATERIAL: Intravenous: Omnipaque 350 Contrast volume:100 mL COMPARISON: CT CT CHEST/ABD/PEL W from 05/21/2021 FINDINGS: Tracheobronchial tree: Patent where visualized. Pulmonary parenchyma: No consolidation or dominant measurable mass. No architectural distortion. Pulmonary Arteries: No evidence of filling defect to suggest pulmonary emboli. Mediastinum and Keysha: No dominant adenopathy or fluid collection. The esophagus is unremarkable. Visualized thyroid gland: Unremarkable. Pleura: No effusion or pneumothorax. Heart: The heart is not dilated. No coronary artery calcifications are seen. No pericardial effusion. Aorta: Thoracic aorta non-dilated. No evidence of dissection. Soft tissues: Unremarkable. Bones: Within normal limits for the patient's age. IMPRESSION: No evidence of pulmonary embolism, thoracic aortic dissection or aneurysm. RADIATION DOSE DELIVERED: 1665.32 mGy.cm Total DLP DATA REPOSITORY: All CT scans at this facility are submitted to the National Radiology Data Registry (NRDR) Dose Index Registry (DIR) with the [employer] (ACR). RADIATION OPTIMIZATION: All CT scans at this facility use at least one of these dose optimization te chniques: automated exposure control; mA and/or kV adjustment per patient size (includes targeted exa ms where dose is matched to clinical indication); or iterative reconstruction.
--- NOTE | 2021-07-20 11:45 | RT.EKG_ITS ---
APPROVED REPORT Exam: Resting ECG Reason for Exam: flank pain, cyanosis Patient Location: E HR:63 bpm ECG Measurements Heart Rate 63 AXIS NC 214 P 28 QRSd 82 QRS 4 QT 376 T 9 QTc 385 Conclusion Sinus rhythm...normal P axis, V-rate 60- 99 Prolonged NC interval...NC >210, V-rate 50- 90 Low voltage, precordial leads...precordial leads <1.0mV normal sinus rhythm, normal axis, t wave inversion lead III
--- NOTE | 2021-07-20 11:45 | DI.CT_ITS ---
Exam(s) CT ABDOMEN PELVIS WO EXAM: CT ABDOMEN PELVIS WO CLINICAL HISTORY: right flank pain, PE v kidney stone. TECHNIQUE: Imaging Protocol: Axial computed tomography images with coronal and sagittal reformatted images were created and reviewed. COMPARISON: CT CT CHEST/ABD/PEL W from 05/21/2021 FINDINGS: ABDOMEN: Liver: Normal density. There again seen stable multiple hepatic cysts. Gallbladder and biliary tract: No radiodense calculus or biliary ductal dilation. Pancreas: Normal density, no abnormal calcifications or inflammatory process. Spleen: Normal. Kidneys: Normal size, contour and axis.There is left nephrolithiasis. No hydronephrosis. No masses seen. Adrenal glands: No mass is seen. Lymph nodes: Within normal limits. Abdominal Aorta: Abdominal portion non-dilated. PELVIS: Bladder:Symmetric distention, no gross wall thickening. Bowel: No evidence of obstruction. The loop of small bowel vertically oriented in the central abdome n with some bowel wall thickening. There also appears to be mild stranding in the surrounding fat. Appendix is unremarkable. There are few scattered diverticula in the colon but no evidence of acute diverticulitis. There is a large amount of stool in the colon which may represent constipation. Peritoneal cavity: No ascites, collection or mesenteric inflammatory response. No free air. Reproductive organs: Within normal limits. There is an IUD which is in good position. Bones: Within normal limits. Soft Tissues: There is a small fat containing umbilical hernia. IMPRESSION: 1. Findings suspicious for enteritis with the loop of small bowel in the central abdomen which show s ome bowel wall thickening and surrounding inflammation. 2. Left nephrolithiasis but no evidence of hydronephrosis. RADIATION DOSE DELIVERED: Total DLP DATA REPOSITORY: All CT scans at this facility are submitted to the National Radiology Data Registry (NRDR) Dose Index Registry (DIR) with the [employer] (ACR). RADIATION OPTIMIZATION: All CT scans at this facility use at least one of these dose optimization te chniques: automated exposure control; mA and/or kV adjustment per patient size (includes targeted exa ms where dose is matched to clinical indication); or iterative reconstruction.
--- NOTE | 2021-07-20 12:01 | ED.GENADUL_ITS ---
Discharge Plan Disposition Patient Disposition: HOME Condition: Improving Discharge Details Clinical Impression: Hepatic cyst, Enteritis, Mesenteric lymphadenopathy Primary Care Provider: Isabela Mitchell ED Provider: Elder Chicas Home Meds and New Rx's Prescriptions: New ciprofloxacin HCl 500 mg tablet 500 mg PO BID 7 Days Qty: 14 0RF Continued multivitamin [Daily Multi-Vitamin] Tablet 1 tab PO DAILY 0RF Calcium Magnesium + D 1 EACH tablet 1 cap PO DAILY 0RF Mirena 1 EACH intrauterine device 1 ea Intrauterine ONCE Qty: 1 0RF tramadol 50 mg tablet 50 mg PO Q4-5H 0RF Label Comments: TAKE TWO TABLETS BY MOUTH EVERY 4 HOURS NEEDED FOR PAIN- MAX DAILY DOSE OF 400MG pregabalin 75 mg capsule 75 mg PO DAILY 0RF Label Comments: TAKE ONE CAPSULE BY MOUTH THREE TIMES A DAY epinephrine 0.3 mg/0.3 mL auto-injector 0.3 ml SC ONCE PRN (Reason: anaphylaxis) Qty: 2 0RF Rx Instructions: as a single dose; may repeat once Discharge Instructions Instructions: Lymphadenopathy (ED), Flank Pain (ED) Additional Instructions: Please follow-up with your oncologist next week regarding the findings today in the emergency department. Please also contact your primary care physician for further evaluation. Return to the emergency department for severe worsening back pain fevers chills nausea vomiting or worsening urinary symptoms. A prescription for antibiotics has been called into your pharmacy please start taking antibiotics if you develop urinary symptomatology otherwise you can hold the antibiotics at this time. Discussed findings of CT with your oncologist and your primary care physician including the liver cyst and lymphadenopathy in the abdomen. Return to the emergency department for any worsening symptomatology Medical Decision Making 45-year-old female presents with right flank discomfort worse with deep breath and movement, slight cyanosis of fingers, and subjective shortness of breath, no urinary symptomatology such as frequency dysuria cloudy urine or stool covered no CVA tenderness, hemodynamically stable not requiring any supplemental oxygen however concern for PE versus pleural effusion versus pneumonia versus kidney stone versus less likely pyelonephritis. Screening labs imaging EKG close reassessment of symptomatology. Disposition pending results 16: 16 resting comfortably no acute distress hemodynamically stable no respirato ry stress, no evidence of PE, no evidence of obstructing kidney stone incidental left kidney stone however patient has no symptomatology on the left, trace leuks and few bacteria without nitrites, patient has no urinary symptoms no frequency no burning no foul-smelling urine, liver cyst stable from prior imaging per radiology, however one of her liver cyst is very lateral in the right lobe consider symptomatic liver cyst, hemangioma versus simple body fluid versus less likely infectious given no fever or white count, patient has follow-up with her oncology team as she is being evaluated for a brain tumor and it sounds like she is going to receive a PET scan or a full body MRI within the next couple of weeks, encouraged her to follow-up with her primary care and her primary oncology team regarding these findings. Incidental enteritis and lymphadenopathy associated with enteritis. Patient nonperitoneal resting comfortably has pain meds at home that she is going to take is comfortable going home. Follows at [facility]. Given strict return precautions for worsening symptomatology. Low suspicion for pyelonephritis. Will write prescription for antibiotic in case patient develops urinary tract infection symptomatology however given strict return precautions for signs of pyelonephritis such as rigors fevers vomiting severe flank discomfort and urinary symptomatology. HPI General Date/Time Provider Initiated Documentation: 07/20/21 11:28 . HPI Narrative: 45-year-old female presents with right flank discomfort worse with movement and deep breath, also noticed that her lips and her fingers are more blue, no chest pain does have mild shortness of breath; denies history of thromboembolic phenomena denies family history of DVT or PE. Denies urinary symptoms no frequency dysuria cloudy urine foul-smelling urine or suprapubic discomfort. Related Data Home Medications Medication Instructions Recorded Confirmed calcium carb,citrat 500 1 cap PO DAILY 03/27/15 07/20/21 mg-magnesium #12 250 mg-vit D3 200 unit tablet (Calcium Magnesium + D) levonorgestrel 20 mcg/24 hours (7 1 ea INTRAUTERINE ONCE #1 implant 01/14/18 07/20/21 yrs) 52 mg intrauterine device (Mirena) multivitamin (Daily Multi-Vitamin) 1 tab PO DAILY 03/12/20 07/20/21 epinephrine 0.3 mg/0.3 mL 0.3 ml SC ONCE PRN #2 each 05/29/20 07/20/21 injection, auto-injector pregabalin 75 mg capsule 75 mg PO DAILY 05/29/20 07/20/21 ciprofloxacin HCl 500 mg tablet 500 mg PO BID 7 Days #14 tab 07/20/21 tramadol 50 mg tablet 50 mg PO Q4-5H 07/20/21 07/20/21 Previous Rx's Medication Instructions Recorded levonorgestrel 20 mcg/24 hours (7 1 ea INTRAUTERINE ONCE #1 implant 01/14/18 yrs) 52 mg intrauterine device (Mirena) epinephrine 0.3 mg/0.3 mL 0.3 ml SC ONCE PRN #2 each 05/29/20 injection, auto-injector ciprofloxacin HCl 500 mg tablet 500 mg PO BID 7 Days #14 tab 07/20/21 Allergies Allergy/AdvReac Type Severity Reaction Status Date / Time peanut Allergy Severe Verified 07/20/21 11:36 Penicillins Allergy Severe respiratory Verified 07/20/21 11:36 depression codeine AdvReac Severe Verified 07/20/21 11:36 opium (anthroposophic) AdvReac Severe severe Verified 07/20/21 11:36 vomiting. steroids Allergy Pj's Uncoded 07/20/21 11:36 syndrome General Stated Complaint: FlankPain NORMA: 3 Review of Systems Narrative: Review of Systems Constitutional: negative Eyes: negative ENT: negative Cardiovascular: negative Respiratory: Mild shortness of breath, right flank pain Gastrointestinal: negative : negative Musculoskeletal: negative Skin: Mild cyanosis Neurologic: negative Psych: negative PFSH All Active Problems (Updated 07/20/21 @ 16:25 by Elder Chicas MD) Hepatic cyst (Acute) Enteritis (Acute) Mesenteric lymphadenopathy (Acute) Trigeminal neuralgia (Acute) Schwannoma (Acute) L of [place], Followed by neurologist in [place] IUD surveillance (Acute) Vitamin D deficiency (Acute 10/24/14) Family history of breast cancer in sister (Acute 11/14/14) sister at 36 yo, lumpectomy mother, postmenopausal, stage 4, no tx Medical History Fibromyalgia (10/24/14) Osteoarthrosis (10/24/14) Surgical History No significant past surgical history Family History Sister Personal history of malignant neoplasm breast ca 36 yo Mother , August 2020, breast cancer Breast cancer Stage 4, chosen not to treat Father Heart disease Grandfather Colon cancer Other Leukemia Ovarian tumor (benign) Social History Smoking/Tobacco Use Status: Never Smoking risk assessment performed?: Yes Alcohol Intake: current Alcohol Intake frequency: holidays/special occasions only Drug use: Occasionally Substance use type: marijuana Do you feel safe at home: Yes Do you feel safe in your relationship?: Yes Female Reproductive History Menstrual control method: progestin IUCD History History 4 Para 4 Hx # Term Pregnancies Multiple births Hx # Pregnancies Ectopic pregnancies AB induced Hx Number of Living Children AB spontaneous Exam Narrative Exam Narrative: Physical Examination General: alert, awake, cooperative, resting comfortably, no acute distress HEENT: normocephalic, atraumatic; PERRL, EOM intact, conjunctiva normal; no nasal discharge; moist mucous membranes, oral and pharyngeal mucosa normal, tolerating secretions Neck: supple, trachea midline; full ROM Chest: normal to inspection Respiratory: normal respiratory effort, speaking in full sentences, clear to auscultation, no wheezing, rales or rhonchi Cardiac: regular rate, regular rhythm, S1S2 intact, no murmurs rubs or gallops GI: abdomen soft, non-tender, non-distended; no palpable mass or hepatosplenomegaly : No suprapubic tenderness or CVA tenderness Back: No CVA tenderness Skin: Slight cyanosis of hands specifically the fingers, no lesions, rashes or trauma appreciated Neuro: AAOx3, normal speech, moving all extremities Extremities: No peripheral edema Psych: Appropriate mood and affect Course Vital Signs Vital signs: Vital Signs Temperature 36.8 C 07/20/21 11:33 Pulse 82 07/20/21 11:33 Respiratory Rate 14 07/20/21 11:33 Blood Pressure 116/67 07/20/21 11:33 Pulse Oximetry 98 07/20/21 11:33 Temperature 36.8 C 07/20/21 11:33 Temperature Source Temporal Artery Scan 07/20/21 11:33 Pulse 82 07/20/21 11:33 Respiratory Rate 14 07/20/21 11:33 Respiratory Effort Non-Labored 07/20/21 11:38 Blood Pressure 116/67 07/20/21 11:33 Blood Pressure Position Sitting 07/20/21 11:33 Pulse Oximetry 98 07/20/21 11:33 Oxygen Delivery Method Room Air 07/20/21 11:33 Oxygen Flow Rate 0 07/20/21 11:33 Pain Level 7 07/20/21 11:33
[2021-07-20 12:22] LABS: Bilirubin Negative (Negative); Blood Small (Negative); Clarity Sl Cloudy (Clear); Glucose Negative (Negative); Ketones Negative (Negative); Leukocyte Esterase Trace (Negative); Nitrite Negative (Negative); Specific Gravity 1.015 (1.005-1.025); Urobilinogen 0.2 EU/dL (Up TO 0.2)
[2021-07-20 12:29] LABS: Bacteria Few HPF (Negative); C & S Indicated? No/Sq. Contamination; Casts Negative LPF (Negative); Crystals Negative HPF (Negative); Epithelial Cells Many HPF (Negative); Mucus Negative (Negative); WBC 0-2 HPF (0-5)
[2021-07-20 12:40] LABS: BE (Venous) 6 mmol/L (-2-3); HCO3 (Venous) 32 mmol/L (23-28); O2 Sat (Venous) 54 %; TCO2 (Venous) 29 mmol/L (24-29); pCO2 (Venous) 57 mmHg (41-51); pH (Venous) 7.36 (7.31-7.41); pO2 (Venous) 29 mmHg
[2021-07-20 12:43] LABS: HCT 43.9 % (36.0-46.0); HGB 14.4 g/dL (11.2-15.7); Immature Grans % 0.3; MCH 31.3 pg (27.0-33.0); MCHC 32.8 % (32.0-36.0); MCV 95.4 fL (80-95); Nucleated RBC 0 %; Platelet Count 245 10^3/uL (130-400); RDW 11.6 % (11.7-14.6); RDW-SD 40.5 fL; WBC 7.69 10^3/uL (4.4-10.8)
[2021-07-20 12:54] LABS: Absolute Eosinophil Count 0.15 10^3/uL (0.0-0.7); Absolute Lymphocyte Count 2.15 10^3/uL (1.2-3.4); Absolute Monocyte Count 0.62 10^3/uL (0.1-0.8); Diff Comment Manual Differential; RBC Morphology Normal
[2021-07-20 13:00] LABS: PTT Activated 27.6 sec (21.0-27.5); Prothrombin Time 10.5 sec (9.3-11.0)
[2021-07-20 13:13] LABS: ALT 22 U/L (14-59); AST 14 U/L (15-37); Albumin 4.1 g/dL (3.4-5.0); Alkaline Phosphatase 45 U/L (46-116); Anion Gap 8.7 mmol/L (3-11); BUN 12 mg/dL (7-18); Bilirubin, Total 0.5 mg/dL (0.2-1.0); CO2 30.3 mmol/L (21.0-32.0); CREATININE 0.7 mg/dL (0.55-1.02); Calcium 9.1 mg/dL (8.5-10.1); Chloride 99 mmol/L (98-107); Glucose 91 mg/dL (74-106); NT-proBNP 49 pg/mL (<300); Potassium 3.6 mmol/L (3.5-5.1); Sodium 138 mmol/L (136-145); Total Protein 7.5 g/dL (6.4-8.2); Troponin I < 50 ng/L (<or=60)
[2021-07-20] MEDS: Omnipaque 350 MG/ML 100 ML BTL IJ (14:14)
[2021-07-20] MEDS: Normal Saline Flush 10 ML SYR IVP (14:15)
[2021-07-20 14:30] VITALS: BP 102/59; PULSE 59; RESP 17; TEMP 36.9; O2SAT 100
--- NOTE | 2021-07-20 15:02 | DI.VRAD_ITS ---
PROCEDURE INFORMATION: Exam: CTA Chest With Contrast Exam date and time: 07/20/2021 11:51 AM Age: 45 years old Clinical indication: Pain; Right-sided TECHNIQUE: Imaging protocol: Computed tomographic angiography of the chest with contrast. 3D rendering (Not supervised by radiologist): MIP and/or 3D reconstructed images were created by the technologist. Radiation optimization: All CT scans at this facility use at least one of these dose optimization techniques: automated exposure control; mA and/or kV adjustment per patient size (includes targeted exams where dose is matched to clinical indication); or iterative reconstruction. Contrast material: OMNIPAQUE 350; Contrast volume: 100 ml; Contrast route: INTRAVENOUS (IV); COMPARISON: CT CHEST/ABD/PEL W 05/21/2021 11:11 AM FINDINGS: Pulmonary arteries: Normal. No pulmonary emboli. Aorta: Unremarkable. No aortic aneurysm. No aortic dissection. Lungs: Unremarkable. No consolidation. No masses. Pleural spaces: Unremarkable. No pneumothorax. No pleural effusion. Heart: Unremarkable. No cardiomegaly. No pericardial effusion. Lymph nodes: Unremarkable. No enlarged lymph nodes. Liver: There is a circumscribed low-density lesion of the posterior aspect of the dome of the liver measuring 3.1 cm in diameter. This has a density of 2 Hounsfield units. Two smaller low-density lesions are noted within the left hepatic lobe likely representing cysts. There is also a 6 mm low-density lesion within the anterior aspect of the right hepatic lobe. These all appear unchanged when compared to the previous exam. Bones/joints: Unremarkable. No acute fracture. Soft tissues: Unremarkable. IMPRESSION: 1. No evidence of pulmonary embolism. 2. Multiple hepatic cysts are again seen. The Dictated and Authenticated by: Larry Boston MD. Ordering:ELLEN Friedman MD
--- NOTE | 2021-07-20 15:08 | DI.VRAD_ITS ---
PROCEDURE INFORMATION: Exam: CT Abdomen And Pelvis Without Contrast Exam date and time: 07/20/2021 11:51 AM Age: 45 years old Clinical indication: Other: RT flank pain. Concern for possible kidney stone TECHNIQUE: Imaging protocol: Computed tomography of the abdomen and pelvis without contrast. Radiation optimization: All CT scans at this facility use at least one of these dose optimization techniques: automated exposure control; mA and/or kV adjustment per patient size (includes targeted exams where dose is matched to clinical indication); or iterative reconstruction. COMPARISON: CT CHEST/ABD/PEL W 05/21/2021 11:11 AM FINDINGS: Liver: Multiple hepatic cysts are again noted and appear unchanged. The largest measures 3.1 cm in diameter within the posterior aspect of the right hepatic dome. Gallbladder and bile ducts: Normal. No calcified stones. No ductal dilation. Pancreas: Normal. No ductal dilation. Spleen: Normal. No splenomegaly. Adrenal glands: Normal. No mass. Kidneys and ureters: There is a 2 mm diameter non-obstructing calculus of the left kidney. No hydronephrosis is noted. Stomach and bowel: There is a large amount of retained stool within the colon. There is no evidence of bowel obstruction. A loop of small bowel within the midline abdomen is remarkable for a thickened wall. This can be seen best on series 8, image 31. Appendix: No evidence of appendicitis. Intraperitoneal space: Unremarkable. No free air. No significant fluid collection. Vasculature: Unremarkable. No abdominal aortic aneurysm. Lymph nodes: Multiple mesenteric lymph nodes are noted within the right lower quadrant. Urinary bladder: Unremarkable as visualized. Reproductive: The uterus appears normal. An IUD is present. No adnexal masses are seen. Bones/joints: Unremarkable. No acute fracture. Soft tissues: Unremarkable. IMPRESSION: 1. Multiple liver cysts are again noted. 2. Nonobstructing left nephrolithiasis. 3. Large amount of retained stool within the colon. 4. Mesenteric lymph nodes within the right lower quadrant suspicious for mesenteric adenitis. 5. Thickened loop of small bowel. This may be secondary to inflammatory bowel disease versus other causes of enteritis. 6. An IUD is present. Dictated and Authenticated by: Larry Boston MD. Ordering:ELLEN Friedman MD
--- NOTE | 2021-08-06 07:26 | NUR.NOTE ---
Nursing Note: At the request of the nursing plastics fabrication supervisor, Anay Jackson, I printed the information from this visit and then I faxed the information to [facility] [place] [place] ED; attn. Dr. Alas. . Esmer Del Angel
== END 2021-07-20 16:42 | disposition home or self-care (01) ==
PROVIDERS: Emergency Provider Emergency Medicine; PCP Family Medicine
DX: K76.89 Other specified diseases of liver (principal); K52.9 Noninfective gastroenteritis and colitis, unspecified; I88.0 Nonspecific mesenteric lymphadenitis; R06.02 Shortness of breath
CPT/HCPCS: 36415; 71275; 80053; 81025; 82805; 86850; 86900; 86901; 93005; 99285; 74176; 81003; 81015; 83880; 84484; 85025; 85610; 85730; 93010; 99284; J3490

== ENCOUNTER 2021-07-31 13:56 | Outpatient (REF) | payer OTHER, SELFPAY | END 2021-07-31 13:57 | disposition home or self-care (01) | LOC: NCHCN 13:56 | PROVIDERS: PCP Family Medicine; Visit Provider Nurse Practitioner Family ==

== ENCOUNTER 2021-08-01 20:55 | Outpatient (CLI) | payer OTHER, SELFPAY ==
[2021-08-02 18:26] LABS: Adrenocorticotropic Hormone, P 28 pg/mL
== END 2021-08-01 20:56 | disposition home or self-care (01) ==
LOC: LBO 20:57
PROVIDERS: PCP Family Medicine; Visit Provider Nurse Practitioner Family
DX: E24.2 Drug-induced Cushing's syndrome (principal)
CPT/HCPCS: 36415; 82533; 82024

== ENCOUNTER 2021-09-05 01:45 | Outpatient (CLI) | payer OTHER, SELFPAY ==
--- NOTE | 2021-09-05 10:43 | DI.MAMMO_ITS ---
Exam(s) MAMMO SCREENING EXAM: MAMMO SCREENING CLINICAL HISTORY: screening,z12.39,family h/o breast ca,z80.3 TECHNIQUE: Mammograms were interpreted according to the usual protocol including computer analysis w Reimage CAD system, tomosynthesis and C-view imaging. COMPARISON: FINDINGS: The breasts are heterogeneously dense. No dominant mass or clumped microcalcification is identified in either breast. The current examination is compared with previous examinations including March 2020 and there is increased prominence of a focal area of asymmetric density or nodularity projected laterally in the right breast on CC view. No other significant change seen. Additional mammographic views of the right breast are requested to include a CC spot compression view . Breast ultrasound recommended as well. IMPRESSION: Additional mammographic views of the right breast are requested as described above along with right b reast ultrasound to evaluate possible new area of asymmetric density or nodularity. BI-RADS Category 0 - Assessment Incomplete: Need additional imaging evaluation Breast Density - Category C - Heterogeneously dense
== END 2021-09-05 02:05 ==
PROVIDERS: PCP Family Medicine; Visit Provider Nurse Practitioner Women's Health
DX: Z12.39 Encounter for other screening for malignant neoplasm of breast (principal); Z80.3 Family history of malignant neoplasm of breast
CPT/HCPCS: 77063; 77067

== ENCOUNTER → 2021-09-18 02:54 | Outpatient (CLI) | payer OTHER, SELFPAY ==
--- NOTE | 2021-09-18 14:40 | DI.MAMMO_ITS ---
Exam(s) MG MAMMO SCREEN CALL BACK UNI US BREAST RT LIMITED EXAM: MG MAMMO SCREEN CALL BACK UNI CLINICAL HISTORY: F/U MAMMO, FOCAL AREA ASYMMETRIC DENSITY/NODULARITY RT BREAST. TECHNIQUE: Craniocaudal spot compression digital Mammography views of the right breast followed by T omosynthesis and right breast ultrasound. COMPARISON: 2015 through 05 September 2021. FINDINGS: Mammography/Tomosynthesis: Masses/Architectural Distortion: 2 persistent circumscribed nodules upper outer quadrant. Microcalcifictions: No suspicious pleomorphic-type are seen. Skin Thickening/Nipple Retraction: None. Right breast US: Echotexture: Normal appearance of the glandular tissue. Shadowing: No suspicious foci. Cyst: Multiple cysts seen from the 9 to 12 o'clock positions.. Solid lesions: None seen. Ductal dilation: None. IMPRESSION: 1. Multiple cysts upper outer quadrant right breast. No evidence of malignancy is noted. 2. Unless there is more urgent need, follow-up screening mammography is recommended, as per [place] [employer] guidelines. BI-RADS Category 2 - Benign Findings Breast Density - Category C - Heterogeneously dense Breast density category C or D implies that the patient has dense breast tissue. Dense breast tissue is very common and is not abnormal but dense breast tissue can make it harder to find cancer on a ma mmogram. Also, dense breast tissue may increase their breast cancer risk. This information about the result of the mammogram report was provided to the patient to raise their awareness. Use this report when you speak with the patient about their risks for breast cancer, which includes their family hist ory. At that time, you may recommend for more screening tests (Ultrasound or MRI) as they might be us eful based on their risk. A negative radiographic report should not delay biopsy if a dominant or clinically suspicious mass is present. Up to ten percent of cancers are not identified on mammography. A negative report may reinforce clinical impression. Adenosis and dense breasts may obscure an underlying neoplasm. False positive reports average 6 to 10%. Patient will receive a letter notifying them of these results.
== END ==
PROVIDERS: PCP Family Medicine; Visit Provider Nurse Practitioner Women's Health
DX: Z12.31 Encounter for screening mammogram for malignant neoplasm of breast (principal); R92.8 Other abnormal and inconclusive findings on diagnostic imaging of breast; N60.11 Diffuse cystic mastopathy of right breast
CPT/HCPCS: 76642; 77063; 77067

== ENCOUNTER → 2021-11-21 01:51 | Outpatient (CLI) | payer OTHER, SELFPAY ==
--- NOTE | 2021-11-21 12:30 | DI.RAD_ITS ---
Exam(s) XR ABDOMEN FLAT PLATE EXAM: 2D digital imaging was performed. CLINICAL HISTORY: CHRONIC ABD PAIN, R10.9, G29.89; EVAL FOR RETAINED CAPSULE FROM ENDOSCOPY. COMPARISON: No exams were available for comparison TECHNIQUE: Supine views of the abdomen performed. Two images were obtained. FINDINGS: BOWEL GAS PATTERN: Nondistended. CALCIFICATIONS: No radiopaque calcifications. OSSEOUS STRUCTURES: Normal for age. OTHER FINDINGS: No radiopaque foreign bodies are identified. Note is made of an IUD in the pelvis. IMPRESSION: 1. Nonobstructive bowel gas pattern. 2. No radiopaque foreign body is identified. DATA REPOSITORY: RADIATION DOSE DELIVERED:
== END ==
PROVIDERS: PCP Family Medicine; Visit Provider Internal Medicine Gastroenterology
DX: R10.9 Unspecified abdominal pain (principal); G89.29 Other chronic pain
CPT/HCPCS: 74018

== ENCOUNTER 2023-06-26 18:08 | Outpatient (REF) | payer BC, SELFPAY | END 2023-06-26 18:09 | disposition home or self-care (01) | LOC: NCHCN 18:08 | PROVIDERS: PCP Family Medicine; Visit Provider Family Medicine | DX: N39.0 Urinary tract infection, site not specified (principal) | CPT/HCPCS: 87077; 87086; 87186 ==

== ENCOUNTER 2023-07-16 15:21 | Outpatient (REF) | payer BC, SELFPAY ==
[2023-07-16 14:57] LABS: HCT 45.1 % (36.0-46.0); HGB 14.6 g/dL (11.2-15.7); MCH 29.7 pg (27.0-33.0); MCHC 32.4 % (32.0-36.0); MCV 92 fL (80-95); MPV 11.8 fL (8.0-11.0); Platelet Count 245 10^3/uL (130-400); RBC 4.92 10^6/uL (3.93-5.22); RDW 13.2 % (11.7-14.6); RDW-SD 45.1 fL; WBC 5.99 10^3/uL (4.4-10.8)
[2023-07-16 15:25] LABS: ALT 18 U/L (14-59); AST 13 U/L (15-37); Albumin 3.7 g/dL (3.4-5.0); Alkaline Phosphatase 50 U/L (46-116); Anion Gap 7.8 mmol/L (3-11); BUN 11 mg/dL (7-18); Bilirubin, Total 0.6 mg/dL (0.2-1.0); CO2 29.2 mmol/L (21.0-32.0); CREATININE 0.8 mg/dL (0.55-1.02); Calcium 9.5 mg/dL (8.5-10.1); Calculated LDL 174 mg/dL (<100); Chloride 106 mmol/L (98-107); Cholesterol 238 mg/dL (<200); Estimated GFR 91.97 (mL/min/1.73m2); Glucose 89 mg/dL (74-106); HDL Cholesterol 56 mg/dL (40-60); Potassium 4.2 mmol/L (3.5-5.1); Sodium 143 mmol/L (136-145); Total Protein 6.7 g/dL (6.4-8.2); Triglyceride 42 mg/dL (<150)
[2023-07-16 15:50] LABS: Hemoglobin A1C 5.2 % (<5.7)
== END 2023-07-16 15:22 | disposition home or self-care (01) ==
LOC: LBN 15:21
PROVIDERS: PCP Family Medicine; Referring Provider Nurse Practitioner Family; Visit Provider Nurse Practitioner Family
DX: Z00.00 Encounter for general adult medical examination without abnormal findings (principal)
CPT/HCPCS: 80053; 80061; 85027; 83036

== ENCOUNTER 2023-07-23 03:13 | Emergency (ER) | payer BC, SELFPAY ==
[2023-07-23] VITALS (31 sets, daily range): BP systolic 91–130; BP diastolic 36–61; PULSE 69–116; RESP 18; TEMP 37.5–39.1; O2SAT 92–99
--- NOTE | 2023-07-23 03:15 | DI.CT_ITS ---
Exam(s) CT ABDOMEN PELVIS WO EXAM: CT ABDOMEN PELVIS WO CLINICAL HISTORY: left flank pain, r/o stone w/ pyelo. TECHNIQUE: Imaging Protocol: Axial computed tomography images with coronal and sagittal reformatted images were created and reviewed. Oral: / no COMPARISON: CT CT CHEST PE CTA from 07/20/2021 FINDINGS: Lung Bases: No acute findings. Liver: Normal density. No suspicious mass. Stable liver cysts. No follow-up recommended. Gallbladder and biliary tract: No radiodense calculus or dilation. Pancreas: Normal density, no abnormal calcifications or inflammatory process. Spleen: Normal. Kidneys: Normal size, contour and axis. Tiny nonobstructing stone upper pole left kidney. No finding s to suggest pyelonephritis. No evidence of hydronephrosis. No suspicious masses seen. Adrenal glands: No masses seen. Lymph nodes: Within normal limits. Vasculature: Abdominal aorta non-dilated. Soft tissues: Unremarkable. Bladder: No wall thickening. No mass or calculi. Bowel: Moderate to increased quantity of stool. No obstruction or bowel wall thickening. Peritoneal cavity: No ascites, collection or mesenteric inflammatory response. Reproductive organs: IUD. Bones: Unremarkable for age. IMPRESSION: Tiny nonobstructing stone upper pole left kidney. No evidence of hydronephrosis. No findings to sug gest pyelonephritis. RADIATION DOSE DELIVERED: 1,088.61mGy.cm Total DLP DATA REPOSITORY: All CT scans at this facility are submitted to the National Radiology Data Registry (NRDR) Dose Index Registry (DIR) with the [employer] (ACR). RADIATION OPTIMIZATION: All CT scans at this facility use at least one of these dose optimization te chniques: automated exposure control; mA and/or kV adjustment per patient size (includes targeted exa ms where dose is matched to clinical indication); or iterative reconstruction.
--- NOTE | 2023-07-23 03:27 | W.ED.GENAD ---
Discharge Plan Disposition Patient Disposition: Home Condition: Good Discharge Details Clinical Impression: Left flank pain Primary Care Provider: Carlos Pruitt ED Provider: Carlos Gomez Home Meds and New Rx's Prescriptions: No Action cholecalciferol (vitamin D3) 125 mcg (5,000 unit) capsule 125 mcg PO DAILY sumatriptan succinate 100 mg tablet See Rx Instructions PO .COMPLEX Qty: 12 5RF Rx Instructions: take 1 tab at onset of headache; if no relief, may repeat 1 tab after at least 2 hrs; max = 2 tabs/24 hrs PO cyclobenzaprine 5 mg tablet 5 mg PO TID PRN multivitamin [Daily Multi-Vitamin] Tablet 1 tab PO DAILY Calcium Magnesium + D 1 EACH tablet 1 cap PO DAILY Mirena 1 EACH intrauterine device 1 ea Intrauterine ONCE Qty: 1 0RF acetaminophen [Tylenol Extra Strength] 500 mg tablet 1,000 mg PO TID ibuprofen 800 mg tablet 800 mg PO TID PRN polyethylene glycol 3350 [Miralax] 17 gram/dose powder 17 g PO DAILY PRN Rx Instructions: 1/2 cap daily epinephrine 0.3 mg/0.3 mL auto-injector 0.3 ml SC ONCE PRN (Reason: anaphylaxis) Qty: 2 0RF Rx Instructions: as a single dose; may repeat once pregabalin 75 mg capsule 150 mg PO TID Discharge Instructions Instructions: Flank Pain (ED) Additional Instructions: At this time as we discussed together your workup is somewhat equivocal. Your CAT scan showed no evidence of pneumonia, obstructing kidney stone, or other acute process. Your urinalysis showed no urinary infection, and the majority of your labs have returned without evidence of severe abnormality. That being said your fever was atypical and some of your inflammatory markers are slightly elevated. Because of this we did send blood cultures and urine cultures, if these return positive then you will be contacted. Please monitor your symptoms closely. If you detect any worsening of your symptoms or prolongation of your symptoms over the next 48 to 72 hours, please return for reassessment. Please take Tylenol and Motrin as needed for pain. Drink plenty of fluids and stay well-hydrated. If you notice any worsening of your symptoms, or any new symptoms such as vomiting, diarrhea, fever, chills, shortness of breath, chest pain, numbness, weakness, or fainting , please return immediately to the emergency department for reevaluation. Please follow up with your primary care provider as soon as possible for reassessment and reevaluation. As always, it was a pleasure participating in your medical care today. Referrals: Carlos Pruitt MD [Primary Care Provider] - [facility] General Date/Time Provider Initiated Documentation: 07/23/23 03:25. HPI Narrative: 47-year-old female with a past medical history of fibromyalgia, kidney stones, brain mass that is stable, newly diagnosed breast lesions, who presents today for evaluation of left flank pain. Patient states that 3 weeks ago she developed urinary frequency and pain and blood in her urine, she took a course of antibiotics, symptoms improved, however over the last few days symptoms have returned with worsening left flank pain, urinary frequency, and nausea as well. She denies any new severe hematuria. She does admit to occasional cloudy urine especially over the last 2 days. She admits to fever and chills. She has nausea but no vomiting. No diarrhea. Pain is mainly in the left flank, but is now radiating to the right. No vaginal discharge. No other complaints at this time. Related Data Home Medications Medication Instructions Recorded Confirmed calcium carb,citrat 500 1 cap PO DAILY 03/27/15 02/18/23 mg-magnesium #12 250 mg-vit D3 200 unit tablet (Calcium Magnesium + D) levonorgestrel 21 mcg/24 hours (8 1 ea intrauterine ONCE #1 implant 01/14/18 02/18/23 yrs) 52 mg intrauterine device (Mirena) multivitamin (Daily Multi-Vitamin 1 tab PO DAILY 03/12/20 02/18/23 tablet) epinephrine 0.3 mg/0.3 mL 0.3 ml subcut ONCE PRN anaphylaxis 05/29/20 02/18/23 injection, auto-injector #2 ea acetaminophen 500 mg tablet 1,000 mg PO TID 06/18/22 02/18/23 (Tylenol Extra Strength) cholecalciferol (vitamin D3) 125 125 mcg PO DAILY 06/18/22 02/18/23 mcg (5,000 unit) capsule ibuprofen 800 mg tablet 800 mg PO TID PRN 06/18/22 02/18/23 polyethylene glycol 3350 17 17 g PO DAILY PRN 06/18/22 02/18/23 gram/dose oral powder (Miralax) pregabalin 75 mg capsule 150 mg PO TID 06/18/22 02/18/23 sumatriptan succinate 100 mg tablet See Rx Instructions PO .COMPLEX 06/18/22 02/18/23 #12 tabs cyclobenzaprine 5 mg tablet 5 mg PO TID PRN 06/30/22 02/18/23 Previous Rx's Medication Instructions Recorded levonorgestrel 21 mcg/24 hours (8 1 ea intrauterine ONCE #1 implant 01/14/18 yrs) 52 mg intrauterine device (Mirena) epinephrine 0.3 mg/0.3 mL 0.3 ml subcut ONCE PRN anaphylaxis 05/29/20 injection, auto-injector #2 ea sumatriptan succinate 100 mg tablet See Rx Instructions PO .COMPLEX 06/18/22 #12 tabs Allergies Allergy/AdvReac Type Severity Reaction Status Date / Time peanut Allergy Severe Verified 02/18/23 09:13 Penicillins Allergy Severe respiratory Verified 02/18/23 09:13 depression codeine AdvReac Severe Verified 02/18/23 09:13 opium (anthroposophic) AdvReac Severe severe Verified 02/18/23 09:13 vomiting. steroids Allergy [place]'s Uncoded 02/18/23 09:13 syndrome General Stated Complaint: FlankPain NORMA: 3 Review of Systems All systems reviewed & are unremarkable except as noted in HPI and below Exam Narrative Exam Narrative: 1.Const: Well-nourished, Well-developed, appearing stated age 2.Eyes: PERRL, no conjunctival injection, and symmetrical lids. 3.ENT: Atraumatic external nose and ears. Moist MM. Neck: Symmetric, trachea midline, No thyromegaly. 4.CVS: +S1/S2, No murmurs or gallops. Peripheral pulses 2+ and equal in all extremities. Brisk capillary refill in all extremities. 5.RESP: Unlabored respiratory effort. Clear to auscultation bilaterally. No wheezes rales or rhonchi 6.GI: Soft, nondistended, notable left CVA tenderness, mild right CVA tenderness. Mild left-sided abdominal pain. No suprapubic pain. No right lower quadrant abdominal tenderness. 7.MSK: Normocephalic/Atraumatic, Extremities w/o deformity or ttp No cyanosis or clubbing, Normal movement of all extremities 8.Skin: Warm, Dry. No rashes or lesions. 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 Sensation grossly intact, no focal neurologic deficits. 10.Psych: (AAO) x3. Appropriate mood and affect Course Vital Signs Vital signs: Vital Signs Temperature 39.1 C H 07/23/23 03:19 Pulse 116 H 07/23/23 03:19 Respiratory Rate 18 07/23/23 03:19 Blood Pressure 130/61 07/23/23 03:19 Pulse Oximetry 97 07/23/23 03:19 Temperature 39.1 C H 07/23/23 03:19 Temperature Source Temporal Artery Scan 07/23/23 03:19 Pulse 116 H 07/23/23 03:19 Respiratory Rate 18 07/23/23 03:19 Respiratory Effort Normal 07/23/23 03:22 Blood Pressure 130/61 07/23/23 03:19 Pulse Oximetry 97 07/23/23 03:19 Pain Level 8 07/23/23 03:19 Lab/Test Results Lab/Test Results: 07/23/23 03:25 Blood Blood Culture - Pending 07/23/23 03:25 Blood Blood Culture - Pending Medical Decision Making 47-year-old female with a past medical history of fibromyalgia, kidney stones, brain mass that is stable, newly diagnosed breast lesions, who presents today for evaluation of left flank pain. Patient states that 3 weeks ago she developed urinary frequency and pain and blood in her urine, she took a course of antibiotics, symptoms improved, however over the last few days symptoms have returned with worsening left flank pain, urinary frequency, and nausea as well. She denies any new severe hematuria. She does admit to occasional cloudy urine especially over the last 2 days. She admits to fever and chills. She has nausea but no vomiting. No diarrhea. Pain is mainly in the left flank, but is now radiating to the right. No vaginal discharge. No other complaints at this time. Exam demonstrates left CVA tenderness which is notable, minimal right CVA tenderness. No suprapubic or right lower quadrant tenderness pain. Concern is for pyelonephritis, urolithiasis with infection, diverticulitis less likely. Will treat with NSAIDs, fluids, get a CT scan, monitor closely and reassess. 5:40 AM Laboratory workup has returned, no white count, bandemia, or other significant abnormality. Lactate normal. Electrolytes normal, renal function normal. Urinalysis shows no evidence of infection whatsoever. No nitrites or leuk esterase. Patient is feeling better after fluids and NSAIDs. Fever has resolved. She still does have some mild left flank achiness. CT scan shows no acute process. Patient had a nonobstructing punctate left kidney stone, no evidence of obstruction. With the notably benign laboratory workup, this and the CT scan demonstrating no evidence of obstructing uropathy, or other acute abnormality per radiology, I am cut slightly off guard as to the cause of her fever. She has no headache or neck pain. She denies any vaginal discharge or vaginal odors. She denies any other complaints. We will get a chest x-ray to evaluate for atypical pneumonia. Symptoms may be secondary to a viral etiology, COVID flu and RSV were negative though. Will continue to monitor closely. 7:19 AM Laboratory workup demonstrates a normal ESR, a mildly elevated CRP, procalcitonin is minimally atypical at 0.1. Chest x-ray negative for evidence of pneumonia. On reassessment patient demonstrates no evidence of an acute surgical abdomen. No meningeal signs. No chest pain or shortness of breath. Uncertain as to what the exact cause of her fever is. Potentially viral etiology. With her current workup, the likelihood for sepsis is certainly low. Viral etiology less likely. At this time with no evidence of clear focal source, I do not see an indication for emergent antibiotics. No evidence of urolithiasis or UTI. I had a long discussion with patient and her partner. At this time I do feel patient is stable for discharge however requires very close follow-up with her PCP. We are waiting on blood cultures and urine cultures, and if these return positive she will be reached out to. I recommended that if she has any continuation or worsening of her symptoms over the next 48 to 72 hours then she should immediately return for reassessment and reexamination. Patient and family feel comfortable with this plan. Patient will be discharged home. Discussed red flags which to return. I have extensively reviewed the treatment plan and discharge instructions with the patient. I have addressed all patient concerns at this time. The patient was made aware of what symptoms to monitor for that would warrant a return to the emergency department. Discussed the plan with the patient, they demonstrate verbal understanding and agreement with our assessment and plan at this time. The documentation in this chart was dictated using [employer] dictation software. Please excuse any dictation errors. FINDINGS: Tubes, catheters and devices: T-shaped contraceptive device is noted within the uterus. Lungs: Dependent atelectasis versus scarring, [id number]. Heart: Base of heart is unremarkable as visualized. Liver: Multiple hypodense foci within the liver, the largest of which is appreciated in the superior right lobe, measures 3.3 x 2.7 cm, demonstrates simple fluid attenuation, consistent with benign hepatic cysts. Numerous other hypodensities too small to characterize by modality, statistically likely to represent benign hepatic cysts. These hepatic foci are unchanged from study performed on 07/20/2021. Gallbladder and bile ducts: Gallbladder is decompressed. Pancreas: Stable left upper quadrant and peripancreatic fat stranding from study performed on 07/20/2021. Spleen: Splenule is noted. Adrenal glands: Normal. No mass. Kidneys and ureters: There is a punctate nonobstructive nephrolith within the posterior left upper renal collecting system (series 2 image 26). There is no hydronephrosis. There is no ureterectasis. There is mild fat stranding of the left renal pelvis. Stomach and bowel: Scattered colonic diverticula without evidence of diverticulitis. Appendix: No evidence of appendicitis. Intraperitoneal space: Unremarkable. No free air. No significant fluid collection. Vasculature: Stable pelvic phleboliths are noted. No new calcified densities within the pelvis from study performed on 07/20/2021. Lymph nodes: Unremarkable. No enlarged lymph nodes. Urinary bladder: Bladder is decompressed. Reproductive: Unremarkable as visualized. Bones/joints: Mild degenerative change of the visualized osseous structures. Soft tissues: Unremarkable. IMPRESSION: 1. Nonobstructive punctate left nephrolith as detailed above. No obstructive uropathy changes within the bilateral renal collecting system. 2. Above nonacute findings. Thank you for allowing us to participate in the care of your patient. Dictated and Authenticated by: Darinel Mills DO 07/23/2023 5:26 AM Eastern Time ([place] & [place]) FINDINGS: Lungs: Unremarkable. No consolidation. Pleural spaces: Unremarkable. No pleural effusion. No pneumothorax. Heart/Mediastinum: Likely partially calcified right hilar lymphadenopathy. Bones/joints: Unremarkable. IMPRESSION: Partially calcified right hilar lymphadenopathy. No focal consolidation. Correlate with patient history. Thank you for allowing us to participate in the care of your patient. Dictated and Authenticated by: Darinel Mills DO 07/23/2023 5:54 AM Eastern Time ([place] & [place]) Quality:SDOH Health Related Social Needs: No Data to Display PFSH All Active Problems (Updated 07/23/23 @ 07:17 by Carlos Gomez DO) Left flank pain (Acute) Facial pain, atypical (Acute) Lesion of posterior fossa of cranial cavity (Acute) Trigeminal neuralgia (Acute) IUD surveillance (Acute) Vitamin D deficiency (Acute 10/24/14) Family history of breast cancer in sister (Acute 11/14/14) sister at 36 yo, lumpectomy mother, postmenopausal, stage 4, no tx Medical History Nephrolithiasis Family history of breast cancer in first degree relative Arthralgia Cushingoid side effect of steroids Physical deconditioning Osteoarthrosis (10/24/14) Fibromyalgia (10/24/14) Surgical History No significant past surgical history Family History Sister Personal history of malignant neoplasm breast ca 36 yo Mother , August 2020, breast cancer Breast cancer Stage 4, chosen not to treat Father Heart disease Grandfather Colon cancer Other Leukemia Ovarian tumor (benign) Social History Smoking/Tobacco Use Status: Never Smoking risk assessment performed?: Yes Alcohol Intake: current Alcohol Intake frequency: holidays/special occasions only Alcohol type: beer and wine Drug use: Occasionally Substance use type: marijuana Household members: spouse Number of Children: 4 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 [employer] Do you feel safe at home: Yes Do you feel safe in your relationship?: Yes Female Reproductive History Menstrual control method: progestin IUCD History History 4 Para 4 Hx # Term Pregnancies Multiple births Hx # Pregnancies Ectopic pregnancies AB induced Hx Number of Living Children AB spontaneous PAWSS Have you Been Recently Intoxicated or Drunk Within the Last 30 days?: No Have you Ever Experienced Previous Episodes of Alcohol Withdrawal?: No Have you ever Experienced Withdrawal Seizures?: No Have you ever Experienced Delirium Tremens(DT)s?: No Have you ever undergone Alcohol Rehabilitation Treatment (i.e, inpt ot outpatient treatment programs)?: No Have you ever Experienced Blackouts?: No Have you ever Combined Alcohol with other Downers within the last 90 days?: No Have you ever Combined Alcohol with any other Substance of Abuse during the last 90 days?: No Positive Blood Alcohol level on Presentation? [PCS.BAL]: Unable to Obtain Evidence of Increased Autonomic Activity (i.e. HR>120, tremor, sweating, agitation, nausea)?: No Result: 0
[2023-07-23] MEDS: Ondansetron 4 MG/2 ML VIAL IVP (03:45)
[2023-07-23] MEDS: Lactated Ringers 1,000 ML 1000 ML IV (03:45)
[2023-07-23] MEDS: ACETAMINOPHEN 1,000 MG/100 ML BTL 400 MG IVPB (03:46)
[2023-07-23] MEDS: Ketorolac 15 MG/ML VIAL IVP (03:46)
[2023-07-23 03:53] LABS: Lactate 1.1 mmol/L (0.6-1.4)
[2023-07-23 03:59] LABS: Abs Immature Grans 0.03 10^3/uL (0.0-0.06); Absolute Basophil Count 0.04 10^3/uL (0.0-0.2); Absolute Eosinophil Count 0.42 10^3/uL (0.0-0.7); Absolute Monocyte Count 0.79 10^3/uL (0.1-0.8); Absolute Neutrophil Count 8.14 10^3/uL (1.2-6.7); Basophils % 0.4; HCT 39.6 % (36.0-46.0); HGB 13.3 g/dL (11.2-15.7); Immature Grans % 0.3; Lymphocytes % 9.6; MCHC 33.6 % (32.0-36.0); MCV 89 fL (80-95); Monocytes % 7.6; Neutrophils % 78.1; RBC 4.44 10^6/uL (3.93-5.22); RDW-SD 42.6 fL; WBC 10.42 10^3/uL (4.4-10.8)
[2023-07-23 04:13] LABS: ALT 11 U/L (14-59); AST 12 U/L (15-37); Albumin 3.3 g/dL (3.4-5.0); Alkaline Phosphatase 53 U/L (46-116); Anion Gap 10.7 mmol/L (3-11); BUN 15 mg/dL (7-18); Bilirubin, Total 0.5 mg/dL (0.2-1.0); CO2 25.3 mmol/L (21.0-32.0); CREATININE 0.8 mg/dL (0.55-1.02); Calcium 9.3 mg/dL (8.5-10.1); Chloride 104 mmol/L (98-107); Estimated GFR 91.97 (mL/min/1.73m2); Glucose 102 mg/dL (74-106); Potassium 3.7 mmol/L (3.5-5.1); Sodium 140 mmol/L (136-145)
[2023-07-23 04:24] LABS: Bilirubin Negative (Negative); Blood Negative (Negative); Clarity Clear (Clear); Glucose Negative (Negative); Ketones Negative (Negative); Leukocyte Esterase Negative (Negative); Nitrite Negative (Negative); Urobilinogen 0.2 mg/dL (Up to 0.2); pH 7.5 (5-8)
[2023-07-23 04:36] LABS: Diff Comment Diff Reviewed; RBC Morphology Normal
[2023-07-23 04:54] LABS: COVID-19 PCR Negative (Negative); Influenza A PCR Negative (Negative); Influenza B PCR Negative (Negative); RSV PCR Negative (Negative)
--- NOTE | 2023-07-23 05:28 | DI.VRAD_ITS ---
PROCEDURE INFORMATION: Exam: CT Abdomen And Pelvis Without Contrast Exam date and time: 07/23/2023 4:54 AM Age: 47 years old Clinical indication: Abdominal pain; Flank; Left; Additional info: Left flank pain, R/O stone w/ pyelo TECHNIQUE: Imaging protocol: Computed tomography of the abdomen and pelvis without contrast. COMPARISON: CT ABDOMEN PELVIS WO 07/20/2021 2:06 PM FINDINGS: Tubes, catheters and devices: T-shaped contraceptive device is noted within the uterus. Lungs: Dependent atelectasis versus scarring, [id number]. Heart: Base of heart is unremarkable as visualized. Liver: Multiple hypodense foci within the liver, the largest of which is appreciated in the superior right lobe, measures 3.3 x 2.7 cm, demonstrates simple fluid attenuation, consistent with benign hepatic cysts. Numerous other hypodensities too small to characterize by modality, statistically likely to represent benign hepatic cysts. These hepatic foci are unchanged from study performed on 07/20/2021. Gallbladder and bile ducts: Gallbladder is decompressed. Pancreas: Stable left upper quadrant and peripancreatic fat stranding from study performed on 07/20/2021. Spleen: Splenule is noted. Adrenal glands: Normal. No mass. Kidneys and ureters: There is a punctate nonobstructive nephrolith within the posterior left upper renal collecting system (series 2 image 26). There is no hydronephrosis. There is no ureterectasis. There is mild fat stranding of the left renal pelvis. Stomach and bowel: Scattered colonic diverticula without evidence of diverticulitis. Appendix: No evidence of appendicitis. Intraperitoneal space: Unremarkable. No free air. No significant fluid collection. Vasculature: Stable pelvic phleboliths are noted. No new calcified densities within the pelvis from study performed on 07/20/2021. Lymph nodes: Unremarkable. No enlarged lymph nodes. Urinary bladder: Bladder is decompressed. Reproductive: Unremarkable as visualized. Bones/joints: Mild degenerative change of the visualized osseous structures. Soft tissues: Unremarkable. IMPRESSION: 1. Nonobstructive punctate left nephrolith as detailed above. No obstructive uropathy changes within the bilateral renal collecting system. 2. Above nonacute findings. Dictated and Authenticated by: Darinel Mills MD. Ordering:CIERRA Gonzalez MD
--- NOTE | 2023-07-23 05:30 | DI.RAD_ITS ---
Exam(s) XR PORTABLE CHEST AP EXAM: XR PORTABLE CHEST AP CLINICAL HISTORY: fever, eval for pneumonia TECHNIQUE: 2D digital imaging was performed. COMPARISON: CT CT CHEST PE CTA from 07/20/[address] ABDOMEN PELVIS WO from 07/23/2023 FINDINGS: LUNGS: Clear. No pleural abnormality seen. HEART: Normal size. AORTA: Normal diameter. BONES: Unremarkable for age. Soft tissues: Unremarkable. IMPRESSION: No acute findings. DATA REPOSITORY: RADIATION DOSE DELIVERED:
[2023-07-23 05:50] LABS: ESR 20 mm/hr (0-20)
--- NOTE | 2023-07-23 05:54 | DI.VRAD_ITS ---
PROCEDURE INFORMATION: Exam: XR Chest Exam date and time: 07/23/2023 5:46 AM Age: 47 years old Clinical indication: Fever; Additional info: Fever, eval for pneumonia TECHNIQUE: Imaging protocol: Radiologic exam of the chest. Views: 1 view. COMPARISON: CT CHEST PE CTA 07/20/2021 2:06 PM FINDINGS: Lungs: Unremarkable. No consolidation. Pleural spaces: Unremarkable. No pleural effusion. No pneumothorax. Heart/Mediastinum: Likely partially calcified right hilar lymphadenopathy. Bones/joints: Unremarkable. IMPRESSION: Partially calcified right hilar lymphadenopathy. No focal consolidation. Correlate with patient history. Dictated and Authenticated by: Darinel Mills MD. Ordering:CEIRRA Gonzalez MD
[2023-07-23 06:12] LABS: C-Reactive Protein 3.75 mg/dL (<or=0.5)
[2023-07-23 07:02] LABS: Procalcitonin 0.1 ng/mL
--- NOTE | 2023-07-28 08:25 | NUR.NOTE ---
Received specimen report which states no reportable results. I showed the document to Bobby Ronquillo for confirmation.
== END 2023-07-23 07:42 | disposition home or self-care (01) ==
LOC: ER 07:39
PROVIDERS: Emergency Provider Student in an Organized Health Care Education/Training Program; PCP Family Medicine
DX: R10.9 Unspecified abdominal pain (principal); R31.9 Hematuria, unspecified; R50.9 Fever, unspecified; Z11.52 Encounter for screening for COVID-19
CPT/HCPCS: 80053; 81025; 84145; 85652; 87040; 87637; 96361; 96374; 96375; 99284; 71045; 74176; 81003; 83605; 85025; 86140; J0131; J1885; J2405

== ENCOUNTER → 2023-07-24 00:36 | Outpatient (CLI) | payer BC, SELFPAY ==
--- NOTE | 2023-07-24 | DI.US_ITS ---
Exam(s) US BREAST LT COMPLETE US BREAST RT COMPLETE MG MAMMO DIAGNOSTIC BI EXAM: MG MAMMO DIAGNOSTIC BI and bilateral complete breast ultrasound CLINICAL HISTORY: LT BREAST LUMP, N63.0. DIAGNOSTIC,2 nodules rt breast. TECHNIQUE: Craniocaudal and mediolateral oblique Full Field Digital Mammography views of the bilater al breast with Computer Aided Diagnosis followed by Tomosynthesis and bilateral breast ultrasound. E valuation of all 4 quadrants, the axilla and retroareolar region of each breast was performed. COMPARISON: Comparison is made with prior examinations. FINDINGS: Mammography/Tomosynthesis: Masses/Architectural Distortion: At the 9 o'clock position of the left breast, there is a well-circum scribed 1 cm nodule. At the 9 o'clock position of the right breast, there is a 1.9 cm nodule seen on the craniocaudad view. There are no areas of architectural distortion. Microcalcifictions: No suspicious pleomorphic-type are seen. Skin Thickening/Nipple Retraction: None. Complete bilateral breast US: Echotexture: Normal appearance of the glandular tissue. Shadowing: No suspicious foci. Cyst: There are multiple cysts seen bilaterally in the breasts. At the 10 o'clock position of the ri ght breast 2 cm from the nipple, there is a 1.9 x 1 x 1.7 cm cyst. This would appear to correspond t o the mammographic abnormality. There is a collection of cysts seen in the right breast at 10 o'cloc k 2 cm from the nipple. Solid lesions: At the 9 o'clock position of the left breast 1 cm from the nipple, there is a 1.0 x 0. 8 x 1.4 cm solid isoechoic avascular radially oriented nodule. This would appear to correspond to th e mammographic abnormality. It has benign characteristics sonographically suggesting a lesion such a s a fibroadenoma. In the right breast at the 10 o'clock position 2 cm from the nipple, there is a ro und hypoechoic nodule measuring 0.7 x 0.5 cm. It is solid. The margins are mildly lobulated. Ductal dilation: None. IMPRESSION: 1. Multiple bilateral breast cysts. Isoechoic 1 cm nodule in the left breast at 9 o'clock which sonu esponds to the mammographic abnormality and likely reflects a benign lesion such as a fibroadenoma. Round mildly lobulated nodule at the 10 o'clock position of the right breast 2 cm from the nipple. T his may represent a fibroadenoma. 2. Given the multiple breast lesions and the patient's strong family history, an MRI of the breast is recommended for further evaluation of these solid lesions. 3. The findings were discussed with the patient on the date of the examination. BI-RADS Category 0 - Assessment Incomplete: Need additional imaging evaluation Breast Density - Category C - Heterogeneously dense Breast density Category C or D implies that the patient has dense breast tissue. Dense breast tissue can make it harder to find cancer on a mammogram. Dense breast tissue is also associated with an incr eased risk of breast cancer. This information about the result of the mammogram report was provided to the patient to raise their awareness. Use this report when you speak with the patient about their risks for breast cancer, which includes their family history. At that time, you may recommend additional screening tests (Ultrasoun d or MRI) as these tests may add significant information. A negative radiographic report should not delay biopsy if a dominant or clinically suspicious mass is present. Up to ten percent of cancers are not identified on mammography. A negative report may reinforce clinical impression. Adenosis and dense breasts may obscure an underlying neoplasm. False positive reports average 6 to 10%. Patient will receive a letter notifying them of these results. Unexpected results.
== END ==
PROVIDERS: PCP Family Medicine; Visit Provider Nurse Practitioner Family
DX: Z12.31 Encounter for screening mammogram for malignant neoplasm of breast (principal); R92.8 Other abnormal and inconclusive findings on diagnostic imaging of breast
CPT/HCPCS: 76642; 77062; 77066; G0279

== ENCOUNTER 2023-07-27 09:00 | Emergency (ER) | payer BC, SELFPAY ==
[2023-07-27 09:05] VITALS: BP 133/76; PULSE 91; RESP 17; TEMP 36.7; O2SAT 100
[2023-07-27 09:15] VITALS: BP 133/76; PULSE 91; RESP 17; TEMP 36.7; O2SAT 100
--- NOTE | 2023-07-27 09:30 | DI.US_ITS ---
Exam(s) US ABD PELV TRANSVAG NON-OB EXAM: US ABD PELV TRANSVAG NON-OB CLINICAL HISTORY: feeling of pelvic fullness, pain rad to L flank TECHNIQUE: Ultrasound of the abdomen, pelvis. Both abdominal and transvaginal was performed using standard protocol. COMPARISON: CT CT ABDOMEN PELVIS WO from 07/23/2023 FINDINGS: LIVER: Cyst noted in right lobe measuring 3.6 cm. GALLBLADDER: No evidence of cholelithiasis. No evidence of wall thickening. No pericholecystic fluid identified. KIDNEYS: Kidneys are symmetric in size. No evidence of renal calculi. Question mild left hydronephros is. No renal mass or cyst identified. BILIARY SYSTEM: Common bile duct measures < 7 mm. No intrahepatic biliary ductal dilation. LIRA'S SIGN: Negative. PANCREAS: Normal where visualized. SPLEEN: Not enlarged. ABDOMINAL AORTA AND IVC: Visualized portions normal caliber. ASCITES: None seen. UTERUS: Position: Anteverted. Size: 9.0 by 4.6 by 4.8 cm Endometrium: 0.5 cm IUD noted within endometrium.. Myometrium: Unremarkable. Cervix: Unremarkable. OVARIES: Right: cm Cyst or mass: 3.3 centimeter hemorrhagic cyst. Left: cm Cyst or mass: None. DOPPLER: Color: Symmetric and uniform flow to both ovaries. No hyperemia. Duplex: Normal ovarian arterial waveforms visualized. CUL-DE-SAC: Free fluid: Trace. IMPRESSION: 1. Question mild left hydronephrosis. 2. IUD present within the endometrium.. 3. 3.3 centimeter hemorrhagic cyst of the right ovary. DATA REPOSITORY:
--- NOTE | 2023-07-27 09:36 | ED.GENADUL_ITS ---
Discharge Plan Discharge Details Chief Complaint: FlankPain Primary Care Provider: Carlos Pruitt ED Provider: Mercedes Moralez Home Meds and New Rx's Prescriptions: No Action sumatriptan succinate 100 mg tablet See Rx Instructions PO .COMPLEX Qty: 12 5RF Rx Instructions: take 1 tab at onset of headache; if no relief, may repeat 1 tab after at least 2 hrs; max = 2 tabs/24 hrs PO cyclobenzaprine 5 mg tablet 5 mg PO TID PRN Calcium Magnesium + D 1 EACH tablet 1 cap PO DAILY Mirena 1 EACH intrauterine device 1 ea Intrauterine ONCE Qty: 1 0RF acetaminophen [Tylenol Extra Strength] 500 mg tablet 1,000 mg PO TID ibuprofen 800 mg tablet 800 mg PO TID PRN polyethylene glycol 3350 [Miralax] 17 gram/dose powder 17 g PO DAILY PRN Rx Instructions: 1/2 cap daily epinephrine 0.3 mg/0.3 mL auto-injector 0.3 ml SC ONCE PRN (Reason: anaphylaxis) Qty: 2 0RF Rx Instructions: as a single dose; may repeat once pregabalin 75 mg capsule 150 mg PO TID HPI General Date/Time Provider Initiated Documentation: 07/27/23 09:01 . HPI Narrative: Lenka is a 47-year-old female with history of trigeminal neuralgia, fibromyalgia, and migraines who presents to the emergency department today for evaluation of left flank pain. She reports that she was treated for UTI 1 month ago after developing hematuria, soon after she developed an aching pain from her suprapubic area radiating around to her left flank. This remained at a 5 out of 10 for a couple of weeks, but on Thursday (07/22) she developed generalized fatigue, lightheadedness/feeling like she was going to pass out, and nausea with worsening pain (now a sharp pain in the same area). Fever up to 102 developed. She had a workup performed in the emergency department on the , negative workup, unclear etiology of flank pain despite labs and CT imaging. It was determined this might be a viral etiology. Symptoms including fever up to 102, lightheadedness, nausea, and suprapubic pain radiating around to the left flank accompanied by suprapubic fullness have persisted throughout the weekend. She has been taking Tylenol and ibuprofen alternating every 3 hours, feels that ibuprofen has been more effective in treating discomfort. Denies episodes of passing out, cough, shortness of breath, inability to tolerate p.o., other abdominal pain, vaginal discharge, dysuria, foul odor to urine, change in bladder function. She has had soft stools for the last couple of days. Last dose of ibuprofen was at 7 AM. Denies history of kidney issues or pyelonephritis. Related Data Home Medications Medication Instructions Recorded Confirmed calcium carb,citrat 500 1 cap PO DAILY 03/27/15 07/27/23 mg-magnesium #12 250 mg-vit D3 200 unit tablet (Calcium Magnesium + D) levonorgestrel 21 mcg/24 hours (8 1 ea intrauterine ONCE #1 implant 01/14/18 07/27/23 yrs) 52 mg intrauterine device (Mirena) epinephrine 0.3 mg/0.3 mL 0.3 ml subcut ONCE PRN anaphylaxis 05/29/20 07/27/23 injection, auto-injector #2 ea acetaminophen 500 mg tablet 1,000 mg PO TID 06/18/22 07/27/23 (Tylenol Extra Strength) ibuprofen 800 mg tablet 800 mg PO TID PRN 06/18/22 07/27/23 polyethylene glycol 3350 17 17 g PO DAILY PRN 06/18/22 07/27/23 gram/dose oral powder (Miralax) pregabalin 75 mg capsule 150 mg PO TID 06/18/22 07/27/23 sumatriptan succinate 100 mg tablet See Rx Instructions PO .COMPLEX 06/18/22 07/27/23 #12 tabs cyclobenzaprine 5 mg tablet 5 mg PO TID PRN 06/30/22 07/27/23 Previous Rx's Medication Instructions Recorded levonorgestrel 21 mcg/24 hours (8 1 ea intrauterine ONCE #1 implant 01/14/18 yrs) 52 mg intrauterine device (Mirena) epinephrine 0.3 mg/0.3 mL 0.3 ml subcut ONCE PRN anaphylaxis 05/29/20 injection, auto-injector #2 ea sumatriptan succinate 100 mg tablet See Rx Instructions PO .COMPLEX 06/18/22 #12 tabs Allergies Allergy/AdvReac Type Severity Reaction Status Date / Time peanut Allergy Severe Anaphylaxis Verified 07/27/23 09:10 Penicillins Allergy Severe respiratory Verified 07/27/23 09:10 depression codeine AdvReac Severe Other (See Verified 07/27/23 09:10 Comment) opium (anthroposophic) AdvReac Severe severe Verified 07/27/23 09:10 vomiting. steroids Allergy Pj's Uncoded 07/27/23 09:10 syndrome General Stated Complaint: FlankPain NORMA: 3 Review of Systems Narrative: see HPI Exam Const General: cooperative, healthy appearing and no acute distress Orientation: alert and awake HENMT Mouth: oral mucosae normal Resp Effort & Inspection: normal respiratory effort and able to speak in complete sentences Auscultation: clear to auscultation bilaterally Cardio Rate: regular rate Rhythm: regular rhythm GI Inspection: normal to inspection and no abdominal wall ecchymosis Palpation: soft, not firm, no guarding, no masses and tender (lower abd, greatest in LLQ) Auscultation: normal bowel sounds General: CVA tenderness on the left Back/Spine/Pelvis Back: No erythema and No warmth Skin General skin exam: no rashes or lesions noted Course Vital Signs Vital signs: Vital Signs Temperature 36.7 C 07/27/23 09:05 Pulse 91 H 07/27/23 09:05 Respiratory Rate 17 07/27/23 09:05 Blood Pressure 133/76 07/27/23 09:05 Pulse Oximetry 100 07/27/23 09:05 Temperature 36.7 C 07/27/23 09:15 Temperature Source Oral 07/27/23 09:15 Pulse 91 H 07/27/23 09:15 Respiratory Rate 17 07/27/23 09:15 Respiratory Effort Normal 07/27/23 09:15 Blood Pressure 133/76 07/27/23 09:15 Blood Pressure Position Supine 07/27/23 09:15 Pulse Oximetry 100 07/27/23 09:15 Oxygen Delivery Method Room Air 07/27/23 09:15 Oxygen Flow Rate 0 07/27/23 09:15 Pain Level 5 07/27/23 09:15 Lab/Test Results Lab/Test Results: Laboratory Tests Range/Units 07/27/23 09:19 TSH Cancelled Medical Decision Making Lenka is a 47-year-old female with history of trigeminal neuralgia, fibromyalgia, and migraines who presents to the emergency department today for evaluation of left flank pain. She reports that she was treated for UTI 1 month ago after developing hematuria, soon after she developed an aching pain from her suprapubic area radiating around to her left flank. This remained at a 5 out of 10 for a couple of weeks, but on Thursday (07/22) she developed generalized fatigue, lightheadedness/feeling like she was going to pass out, and nausea with worsening pain (now a sharp pain in the same area). Fever up to 102 developed. She had a workup performed in the emergency department on the , negative workup, unclear etiology of flank pain despite labs and CT imaging. It was determined this might be a viral etiology. Symptoms including fever up to 102, lightheadedness, nausea, and suprapubic pain radiating around to the left flank accompanied by suprapubic fullness have persisted throughout the weekend. She has been taking Tylenol and ibuprofen alternating every 3 hours, feels that ibuprofen has been more effective in treating discomfort. Denies episodes of passing out, cough, shortness of breath, inability to tolerate p.o., other abdominal pain, vaginal discharge, dysuria, foul odor to urine, change in bladder function. She has had soft stools for the last couple of days. Last dose of ibuprofen was at 7 AM. Denies history of kidney issues or pyelonephritis. Physical exam remarkable for left CVA tenderness. Abdomen is soft, nondistended, with normal active bowel sounds. Tenderness with palpation of left lower quadrant, though diffuse abdominal tenderness along lower abdomen is noted. No overlying skin lesions or ecchymosis to back. No tenderness with palpation along C-spine/T-spine/L-spine or paraspinal muscles. Moist mucous membranes. Easy work of breathing, lung sounds clear bilaterally. Normal heart sounds. DDx includes but is not limited to: Pyelonephritis, kidney stone, ovarian cyst, uterine mass, cystitis, diverticulitis I independently interpreted the following tests: CBC, CMP, procalcitonin, UA all unremarkable. White cell count is slightly elevated from previous, 10.43 today compared to 7.69 on 07/20/2023. CRP is elevated at 3.75. Ultrasound of abdomen/pelvis performed, significant for mild hydronephrosis and left kidney, as well as 3.3 cm hemorrhagic cyst in the right ovary. This was compared to previous cT scan; mild hydronephrosis is a new finding (tiny nonobstructing stone was noted in the upper pole of the left kidney on 07/23/2023). Discussed findings with patient, CT abdomen/pelvis ordered to further evaluate. This was significant for diverticulitis and pyelonephritis. While in the emergency department Lenka received Tylenol for comfort and was able to tolerate p.o. fluids without difficulty. Will initiate antibiotics, metronidazole and ciprofloxacin which will treat both diverticulitis and py elonephritis. Reviewed discharge instructions with patient, including importance of follow-up with PCP, diet recommendations, antibiotic use, risks associated with ciprofloxacin, and red flags indicate need for return to emergency care. She is agreeable with plan of care. Imaging Data Radiologic Study: Radiologist's impression: Exam(s) US ABD PELV TRANSVAG NON-OB EXAM: US ABD PELV TRANSVAG NON-OB CLINICAL HISTORY: feeling of pelvic fullness, pain rad to L flank TECHNIQUE: Ultrasound of the abdomen, pelvis. Both abdominal and transvaginal was performed using standard protocol. COMPARISON: CT CT ABDOMEN PELVIS WO from 07/23/2023 FINDINGS: LIVER: Cyst noted in right lobe measuring 3.6 cm. GALLBLADDER: No evidence of cholelithiasis. No evidence of wall thickening. No pericholecystic fluid identified. KIDNEYS: Kidneys are symmetric in size. No evidence of renal calculi. Question m ild left hydronephrosis. No renal mass or cyst identified. BILIARY SYSTEM: Common bile duct measures < 7 mm. No intrahepatic biliary ductal dilation. LIRA'S SIGN: Negative. PANCREAS: Normal where visualized. SPLEEN: Not enlarged. ABDOMINAL AORTA AND IVC: Visualized portions normal caliber. ASCITES: None seen. UTERUS: Position: Anteverted. Size: 9.0 by 4.6 by 4.8 cm Endometrium: 0.5 cm IUD noted within endometrium.. Myometrium: Unremarkable. Cervix: Unremarkable. OVARIES: Right: cm Cyst or mass: 3.3 centimeter hemorrhagic cyst. Left: cm Cyst or mass: None. DOPPLER: Color: Symmetric and uniform flow to both ovaries. No hyperemia. Duplex: Normal ovarian arterial waveforms visualized. CUL-DE-SAC: Free fluid: Trace. IMPRESSION: 1. Question mild left hydronephrosis. 2. IUD present within the endometrium.. 3. 3.3 centimeter hemorrhagic cyst of the right ovary. Radiologic Study #2: Radiologist's impression: Exam(s) CT ABDOMEN PELVIS W EXAM: CT ABDOMEN PELVIS W CLINICAL HISTORY: L flank pain, hydronephrosis. TECHNIQUE: Imaging Protocol: Axial computed tomography images with coronal and sagittal reformatted images were created and reviewed CONTRAST MATERIAL: Intravenous: Omnipaque 350 Contrast volume:100 ml Oral: yes / no COMPARISON: CT CT CHEST/ABD/PEL W from 05/21/[address] CHEST PE CTA from 07/20/[address] ABDOMEN PELVIS WO from 07/23/2023 US US ABD PELV TRANSVAG NON-OB from 07/27/2023 FINDINGS: ABDOMEN and PELVIS: Lung Bases: No acute findings. Liver: Normal density. No suspicious mass. Liver cysts again noted. Gallbladder and biliary tract: No radiodense calculus or dilation. Pancreas: Normal density. No abnormal calcifications or inflammatory process. N o evidence of mass. Spleen: Normal. Kidneys: Right kidney normal size, contour and axis. Left kidney shows heterogeneous area of decreased perfusion in cystic changes at the upper pole. Mild amount of fluid adjacent to the upper pole of the left kidney. No abnormality was seen on the prior CT. Tiny nonobstructing stone upper pole left kidney. No obstructive uropathy. No suspicious masses seen. Adrenal glands: No masses seen. Vasculature: Abdominal aorta non-dilated. Soft tissues: Unremarkable. Bladder: No gross wall thickening. No calculi.No focal mass. Bowel: Diverticulosis. Focal area of diverticulitis at the lower descending colon. No obstruction. No bowel wall thickening. Appendix normal. Peritoneal cavity: No ascites. No focal collection or mesenteric inflammatory response. Bones: Unremarkable for age. Reproductive organs: IUD noted. 3 cm cyst right ovary. Lymph nodes: Unremarkable. IMPRESSION:: Focal area of diverticulitis lower descending colon. Focal area of pyelonephritis upper pole left kidney. Tiny nonobstructing stone left kidney. No evidence of hydronephrosis. Findings called to Dr. Patel of the emergency department. Quality:SDOH Health Related Social Needs: No Data to Display PFSH All Active Problems (Updated 07/23/23 @ 07:17 by Carlos Gomez DO) Left flank pain (Acute) Facial pain, atypical (Acute) Lesion of posterior fossa of cranial cavity (Acute) Trigeminal neuralgia (Acute) IUD surveillance (Acute) Vitamin D deficiency (Acute 10/24/14) Family history of breast cancer in sister (Acute 11/14/14) sister at 36 yo, lumpectomy mother, postmenopausal, stage 4, no tx Medical History Nephrolithiasis Family history of breast cancer in first degree relative Arthralgia Cushingoid side effect of steroids Physical deconditioning Osteoarthrosis (10/24/14) Fibromyalgia (10/24/14) Surgical History No significant past surgical history Family History Sister Personal history of malignant neoplasm breast ca 36 yo Mother , August 2020, breast cancer Breast cancer Stage 4, chosen not to treat Father Heart disease Grandfather Colon cancer Other Leukemia Ovarian tumor (benign) Social History Smoking/Tobacco Use Status: Never Smoking risk assessment performed?: Yes Alcohol Intake: current Alcohol Intake frequency: holidays/special occasions only Alcohol type: beer and wine Drug use: Occasionally Substance use type: marijuana Household members: spouse Number of Children: 4 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
[2023-07-27 11:15] LABS: Bilirubin Negative (Negative); Blood Negative (Negative); Clarity Clear (Clear); Glucose Negative (Negative); Ketones Negative (Negative); Leukocyte Esterase Negative (Negative); Nitrite Negative (Negative); Specific Gravity 1.015 (1.005-1.025); Urobilinogen 0.2 mg/dL (Up to 0.2); pH 7.5 (5-8)
[2023-07-27 11:21] LABS: Lactate 0.7 mmol/L (0.6-1.4)
[2023-07-27 11:25] LABS: ESR 23 mm/hr (0-20)
[2023-07-27 11:33] LABS: HCG Qual (Serum) Negative
[2023-07-27 12:09] LABS: ALT 18 U/L (14-59); AST 10 U/L (15-37); Albumin 3.2 g/dL (3.4-5.0); Alkaline Phosphatase 85 U/L (46-116); Anion Gap 9.9 mmol/L (3-11); BUN 6 mg/dL (7-18); Bilirubin, Total 0.5 mg/dL (0.2-1.0); CO2 29.1 mmol/L (21.0-32.0); CREATININE 0.8 mg/dL (0.55-1.02); Chloride 101 mmol/L (98-107); Estimated GFR 91.97 (mL/min/1.73m2); Glucose 89 mg/dL (74-106); Lipase 19 U/L (16-77); Potassium 3.9 mmol/L (3.5-5.1); Sodium 140 mmol/L (136-145); Total Protein 8.2 g/dL (6.4-8.2)
[2023-07-27] MEDS: Acetaminophen 325 MG TAB (12:10)
[2023-07-27 12:13] LABS: Procalcitonin 0.1 ng/mL
--- NOTE | 2023-07-27 12:15 | DI.CT_ITS ---
Exam(s) CT ABDOMEN PELVIS W EXAM: CT ABDOMEN PELVIS W CLINICAL HISTORY: L flank pain, hydronephrosis. TECHNIQUE: Imaging Protocol: Axial computed tomography images with coronal and sagittal reformatted images were created and reviewed CONTRAST MATERIAL: Intravenous: Omnipaque 350 Contrast volume:100 ml Oral: yes / no COMPARISON: CT CT CHEST/ABD/PEL W from 05/21/[address] CHEST PE CTA from 07/20/[address] ABDOMEN PELVIS WO from 07/23/2023 US US ABD PELV TRANSVAG NON-OB from 07/27/2023 FINDINGS: ABDOMEN and PELVIS: Lung Bases: No acute findings. Liver: Normal density. No suspicious mass. Liver cysts again noted. Gallbladder and biliary tract: No radiodense calculus or dilation. Pancreas: Normal density. No abnormal calcifications or inflammatory process. No evidence of mass. Spleen: Normal. Kidneys: Right kidney normal size, contour and axis. Left kidney shows heterogeneous area of decreas ed perfusion in cystic changes at the upper pole. Mild amount of fluid adjacent to the upper pole of the left kidney. No abnormality was seen on the prior CT. Tiny nonobstructing stone upper pole lef t kidney. No obstructive uropathy. No suspicious masses seen. Adrenal glands: No masses seen. Vasculature: Abdominal aorta non-dilated. Soft tissues: Unremarkable. Bladder: No gross wall thickening. No calculi.No focal mass. Bowel: Diverticulosis. Focal area of diverticulitis at the lower descending colon. No obstruction. No bowel wall thickening. Appendix normal. Peritoneal cavity: No ascites. No focal collection or mesenteric inflammatory response. Bones: Unremarkable for age. Reproductive organs: IUD noted. 3 cm cyst right ovary. Lymph nodes: Unremarkable. IMPRESSION:: Focal area of diverticulitis lower descending colon. Focal area of pyelonephritis upper pole left kidney. Tiny nonobstructing stone left kidney. No evid ence of hydronephrosis. Findings called to Dr. Patel of the emergency department. RADIATION DOSE DELIVERED: 1,208.81mGy.cm Total DLP DATA REPOSITORY: All CT scans at this facility are submitted to the National Radiology Data Registry (NRDR) Dose Index Registry (DIR) with the [employer] ([employer]). RADIATION OPTIMIZATION: All CT scans at this facility use at least one of these dose optimization te chniques: automated exposure control; mA and/or kV adjustment per patient size (includes targeted exa ms where dose is matched to clinical indication); or iterative reconstruction.
[2023-07-27] MEDS: Normal Saline - Diluent 50 ML VIAL IJ (13:56)
[2023-07-27] MEDS: Omnipaque 350 MG/ML 100 ML BTL IJ (13:57)
[2023-07-27] MEDS: Ciprofloxacin 500 MG TAB (15:00)
[2023-07-27] MEDS: metroNIDAZOLE 500 MG TAB PO ×2 (15:00)
== END 2023-07-27 15:22 | disposition home or self-care (01) ==
PROVIDERS: Emergency Provider Nurse Practitioner Family; PCP Family Medicine
DX: R10.9 Unspecified abdominal pain (principal); N83.201 Unspecified ovarian cyst, right side; Z97.5 Presence of (intrauterine) contraceptive device
CPT/HCPCS: 36415; 80053; 83690; 84145; 85652; 99285; 74177; 76700; 76830; 76856; 81003; 83605; 84443; 84703; 99284; J3490

== ENCOUNTER 2024-05-13 16:47 | Outpatient (REF) | payer BC, SELFPAY ==
--- OUTSIDE RECORDS SUMMARY | 2024-05-13 16:49 | XMS_ITS | Encounter Summary ---
Author Organization [facility] Address [address] [place] [address] Care Team Providers Care Timing Adjuster Name Role Phone Unavailable Primary Care Provider Unavailabl e Encounter Details Date Type Department Care Team (Late st Contact Info) Description 02/10/[address] [facility] Surgical Oncology - [address] [address] Gunner Venegas MD [address] [place] [address], Level [address] [place] [phone] Social History Tobacco Use Types Packs/Day Years Used Date Smoking Tobacco: Never Assessed Comments Unknown Sex and Gender Information Value Date Recorded Sex Assigned at Not on file Legal Sex Female 18:40 EST Gender Identity Female 05/01/2021 9:25 EST Sexual Orientation Not on file documented as of this encounter Plan of Treatment Not on file documented as of this encounter Procedures Procedure Name Priority Date/Time Associated Diagnosis Comments RAD US JACINTO BREAST UNILATERAL - ONE BREAST 02/14/2011 15:01 EDT documented in this encounter Results * RAD US JACINTO BREAST UNILATERAL - ONE BREAST (02/14/2011 15:01 EDT) Anatomical Region Laterality Modality Other 02/14/2011 15:0 1 EDT 02/14/2011 16:33 EDT Narrative 02/14/2011 16:33 EDT Bilateral diagnostic digital mammogram Unilateral breast ultrasound. Indication: Patient with painful left breast lump at approximately 2 oclock. Comparisons: Screening mammogram 05/04/2008 and 03/08/2007. Technique: Standard CC and MLO views of the bilateral breasts as well as left XCCL was performed. In addition, magnified spot CC and ML views of the left breast was performed. Thereafter, ultrasonographic imaging of the upper outer quadrant of the left breast was completed. This examination was interpreted with the aid of computer-assisted detection (CAD) technology. Findings: There are scattered fibroglandular densities. Left breast: A triangular marker was placed over the area of focal tenderness in the upper-outer quadrant. Underlying this region there is a prominent region of fibroglandular tissue which is little changed in comparison to prior exams, especially with spot magnification views. The initial full MLO images of the breast demonstrated an asymmetry within the central portion of the breast tissue which resolved with spot magnification views. No additional masses, concerning calcifications or regions of architectural distortion are present. Focused ultrasonographic imaging in the region of the palpable abnormality demonstrates prominent fibroglandular tissue which extends into the subcutaneous fat at the 2 o'clock position, 9.5 cm out from the nipple. The remainder of the upper-outer quadrant of the breast demonstrates 2 fibrocystic nodules which have a benign appearance. No concerning solid masses are present. Right breast: No concerning masses, calcifications or areas of architectural distortion are present. Impression: Left breast: BI-RADS category 2, benign fibrocystic nodules and normal fibro-glandular tissue corresponding to the area of focal tenderness withinthe UOQ. Right breast: BI-RADS category 1, normal. Overall assessment: Benign. Recommend continued yearly high risk screening mammography. The patient will be due for her next mammogram in January of 2012. In addition, it should be noted that the patient was previously followed at the [facility]. We recommend that an appointment in the High-Risk clinic in the [facility] be made. If this patient's calculated lifetime risk of breast cancer is greater than 20%, then according to the [place] [employer] guidelines, annual MRI screening is recommended in addition to mammography. The patient was told the results and recommendations of the study by the copper plate lithographer. The patient will be notified of her/his breast imaging results via a lay letter from radiology. Radiology will contact the patient directly regarding any findings which require additional imaging (Category 0) at this time. I have personally reviewed the images and the above interpretation and agree with the findings. Procedure Note Moshe Hagan MD - 02/14/2011 Bilateral diagnostic digital mammogram Unilateral breast ultrasound. Indication: Patient with painful left breast lump at approximately 2 oclock. Comparisons: Screening mammogram 05/04/2008 and 03/08/2007. Technique: Standard CC and MLO views of the bilateral breasts as well as left XCCL was performed. In addition, magnified spot CC and ML views of the left breast was performed. Thereafter, ultrasonographic imaging of the upper outer quadrant of the left breast was completed. This examination was interpreted with the aid of computer-assisted detection (CAD) technology. Findings: There are scattered fibroglandular densities. Left breast: A triangular marker was placed over the area of focal tenderness in the upper-outer quadrant. Underlying this region there is a prominent region of fibroglandular tissue which is little changed in comparison to prior exams, especially with spot magnification views. The initial full MLO images of the breast demonstrated an asymmetry within the central portion of the breast tissue which resolved with spot magnification views. No additional masses, concerning calcifications or regions of architectural distortion are present. Focused ultrasonographic imaging in the region of the palpable abnormality demonstrates prominent fibroglandular tissue which extends into the subcutaneous fat at the 2 o'clock position, 9.5 cm out from the nipple. The remainder of the upper-outer quadrant of the breast demonstrates 2 fibrocystic nodules which have a benign appearance. No concerning solid masses are present. Right breast: No concerning masses, calcifications or areas of architectural distortion are present. Impression: Left breast: BI-RADS category 2, benign fibrocystic nodules and normal fibro-glandular tissue corresponding to the area of focal tenderness withinthe UOQ. Right breast: BI-RADS category 1, normal. Overall assessment: Benign. Recommend continued yearly high risk screening mammography. The patient will be due for her next mammogram in January of 2012. In addition, it should be noted that the patient was previously followed at the high [facility] clinic [facility]. We recommend that an appointment in the High-Risk clinic in the [facility] be made. If this patient's calculated lifetime risk of breast cancer is greater than 20%, then according to the [place] [employer] guidelines, annual MRI screening is recommended in addition to mammography. The patient was told the results and recommendations of the study by the copper plate lithographer. The patient will be notified of her/his breast imaging results via a lay letter from radiology. Radiology will contact the patient directly regarding any findings which require additional imaging (Category 0) at this time. I have personally reviewed the images and the above interpretation and agree with the findings. us Gunner Venegas MD IMG US ORDERABLES Final Result documented in this encounter Visit Diagnoses Not on filedocumented in this encounter
--- OUTSIDE RECORDS SUMMARY | 2024-05-13 16:49 | XMS_ITS | Encounter Summary ---
Author Organization [facility] Address [address] [place] [address] Care Team Providers Care Seo Consultant Name Role Phone Unknown, Provider Primary Care Provider Leonor Doyle MD Unavailable Reason for Visit * (Routine/Next Available) - Receiving Office to Obtain Authorization Specialty Diagnoses / Procedures Referred By Contac t Referred To Contact Procedures MR OUTSIDE IMAGES NEURO Unknown, Provider, MD Referral ID Status Reason Start Date Expiration Date Visits Requested Visits Authorized [id number] Receiving Office to Obtain Authorization 03/27/2021 1 1 Encounter Details Date Type Department Care Team (Latest Contact Info) Description 03/21/2021 0:05 EDT - 03/21/2021 23:59 EDT Hospital Encounter [facility] Secondary Reads [place] Discharge Disposition: Home or Self Care Social History Tobacco Use Types Packs/Day Years Used Date Smoking Tobacco: Never Alcohol Use Standard Drinks/Week Comments No 0 (1 standard drink = 0.6 oz pur e alcohol) Comments Unknown Sex and Gender Information Value Date Recorded Sex Assigned at Not on file Legal Sex Female 18:40 EST Gender Identity Female 05/01/2021 9:25 EST Sexual Orientation Not on file documented as of this encounter Medications at Time of Discharge DOCOSAHEXANOIC ACID/EPA (FISH OIL ORAL) Take 7,000 mg by mouth daily. ERGOCALCIFEROL, VITAMIN D2, (VITAMIN D ORAL) Take 6,000 mg by mouth daily. NAPROXEN ORAL Take 500 mg by mouth 2 times daily. documented as of this encounter Discharge Disposition Disposition Code Departure Means Destination Home or Self Care documented in this encounter Plan of Treatment Not on file documented as of this encounter Procedures Procedure Name Priority Date/Time Associated Diagnosis Comments MR OUTSIDE IMAGES NEURO Routine 03/27/2021 17:16 EDT documented in this encounter Results * MR OUTSIDE IMAGES NEURO (03/27/2021 17:16 EDT) Narrative 03/27/2021 17:16 EDT This is a non-reportable exam. us Provider Unknown MD PONCE OTHER IMAGING ORDERABLES Final Result documented in this encounter Visit Diagnoses Not on filedocumented in this encounter Care Teams Seo Consultant Relationship Specialty Start Date End Date Unknown, Provider, PCP - General 05/08/17 04/07/21 Leonor Parish MD [address] [place] [phone] 05/08/17 documented as of this encounter
--- OUTSIDE RECORDS SUMMARY | 2024-05-13 16:49 | XMS_ITS | Encounter Summary ---
Author Organization [facility] Address [address] [place] [address] Care Team Providers Care Translator/Interpreter Name Role Phone Leonor Parish MD Unavailable Isabela Mitchell MD Primary Care Provider [phone] Reason for Visit * Reason Onset Date Comments Appointment Related 04/08/2021 Encounter Details Date Type Department Care Team (Late st Contact Info) Description 04/08/2021 Telephone [facility] Neurosurgery - [address] [phone] Antonio Mejia MD [address] [facility], [address] [place] [address] Appointment Related Social History Tobacco Use Types Packs/Day Years [...] on file documented as of this encounter Miscellaneous Notes * Telephone Encounter - Sabrina Giles - 04/08/2021 1611 EST Images from the original note were not included. Confirmed the following appointment details with Katherine. She verbalized understanding and is aware that she is on a cancellation list and will be contacted if an earlier date becomes available. documented in this encounter Plan of Treatment Not on file documented as of this encounter Visit Diagnoses Not on filedocumented in this encounter Care Teams Translator/Interpreter Relationship Specialty Start Date End Date Isabela Mitchell MD [address] [place] [phone] PCP - General Family Medicine - Primary Care 04/08/21 Leonor Parish MD [address] [place] [phone] 05/08/17 documented as of this encounter
--- OUTSIDE RECORDS SUMMARY | 2024-05-13 16:49 | XMS_ITS | Encounter Summary ---
Author Organization [facility] Address [address] [place] [address] Care Team Providers Care Shank Piece Tacker Name Role Phone Leonor Parish MD Primary Care Provider [phone] Encounter Details Date Type Department Care Team (Late st Contact Info) Description 02/14/2011 11:09 EDT - 02/14/2011 23:59 EDT Hospital Encounter [facility] [address] [place] [address] Gunner Venegas MD [address] [facility] [address] [place] [phone] Discharge Disposition: Auto Discharge Social History Tobacco Use Types Packs/Day Years Used Date Smoking Tobacco: Never Assessed Comments Unknown Sex and Gender Information Value Date Recorded Sex Assigned at Not on file Legal Sex Female 18:40 EST Gender Identity Female 05/01/2021 9:25 EST Sexual Orientation Not on file documented as of this encounter Discharge Disposition Disposition Code Departure Means Destination Auto Discharge Home documented in this encounter Plan of Treatment Not on file documented as of this encounter Visit Diagnoses Not on filedocumented in this encounter Care Teams Shank Piece Tacker Relationship Specialty Start Date End Date Leonor Parish MD [address] [place] [phone] PCP - General 02/13/11 05/07/17 documented as of this encounter
--- OUTSIDE RECORDS SUMMARY | 2024-05-13 16:49 | XMS_ITS | Encounter Summary ---
Author Organization [facility] Address [address] [place] [address] Care Team Providers Care Lead Refinery Supervisor Name Role Phone Leonor Parish MD Unavailable Isabela Mitchell MD Primary Care Provider [phone] Reason for Visit * (Routine/Next Available) - Receiving Office to Obtain Authorization Specialty Diagnoses / Procedures Referred By Nickie alarcon Referred To Contact Procedures CT OUTSIDE IMAGES BODY Imaging, External Referral ID Status Reason Start Date Expiration Date Visits Requested Visits Authorized [id number] Receiving Office to Obtain Authorization 1 1 1 Encounter Details Date Type Department Care Team (Latest Contact Info) Description 05/21/2021 - 05/21/2021 23:59 EST Hospital Encounter [facility] Secondary Reads [place] Discharge Disposition: Home or Self Care Social History Tobacco Use Types Packs/Day Years Used Date Smoking Tobacco: Never Smokeless Tobacco: Never Alcohol Use Standard Drinks/Week Comments No 0 (1 standard drink = 0.6 oz pur e alcohol) Comments No Sex and Gender Information Value Date Recorded Sex Assigned at Not on file Legal Sex Female 18:40 EST Gender Identity Female 05/01/2021 9:25 EST Sexual Orientation Not on file documented as of this encounter Medications at Time of Discharge acetaminophen (TYLENOL) 500 mg tablet Take 500 mg by mouth 3 times daily. bisacodyL (DULCOLAX) [address] 10 mg rectally daily. calcium carb/magnesium ox,carb (JHON-MAG ORAL) Take by mouth. DOCOSAHEXANOIC ACID/EPA (FISH OIL ORAL) Take 7,000 mg by mouth daily. ERGOCALCIFEROL, VITAMIN D2, (VITAMIN D ORAL) Take 6,000 mg by mouth daily. Multivitamins with Minerals tablet tablet Take 1 Tablet by mouth daily. NAPROXEN ORAL Take 500 mg by mouth 2 times daily. predniSONE (DELTASONE) 20 mg tablet Take 20 mg by mouth 2 times daily. Slow taper pregabalin (LYRICA) 150 mg capsule Take 150 mg by mouth 3 times daily. senna (SENOKOT) 8.6 mg tablet Take 17.2 mg by mouth 2 times daily. traMADol (ULTRAM) 50 mg tablet Take 50 mg by mouth 3 times daily as needed for Pain. documented as of this encounter Discharge Disposition Disposition Code Departure Means Destination Home or Self Care documented in this encounter Plan of Treatment Not on file documented as of this encounter Procedures Procedure Name Priority Date/Time Associated Diagnosis Comments CT OUTSIDE IMAGES BODY Routine 05/22/2021 7:00 EST documented in this encounter Results * CT OUTSIDE IMAGES BODY (05/22/2021 7:00 EST) Narrative 05/22/2021 7:00 EST This is a non-reportable exam. us External Imaging IMG OTHER IMAGING ORDERABLES Fi nal Result documented in this encounter Visit Diagnoses Not on filedocumented in this encounter Care Teams Lead Refinery Supervisor Relationship Specialty Start Date End Date Isabela Mitchell MD [address] [place] [phone] PCP - General Family Medicine - Primary Care 04/08/21 Leonor Parish MD [address] [place] [phone] 05/08/17 documented as of this encounter
--- OUTSIDE RECORDS SUMMARY | 2024-05-13 16:49 | XMS_ITS | Encounter Summary ---
Author Organization [facility] Address [address] [place] [address] Care Team Providers Care Spar Finisher Name Role Phone Leonor Parish MD Unavailable Isabela Mitchell MD Primary Care Provider [phone] Reason for Visit * Reason Onset Date Comments Appointment Related 06/04/2021 Encounter Details Date Type Department Care Team (Late st Contact Info) Description 06/04/2021 Telephone [facility] Neurosurgery - [address] [phone] Antonio Mejia MD [address] [facility], [address] [place] [address] Appointment Related Social History Tobacco [...] encounter Miscellaneous Notes * Telephone Encounter - Janey Berumen - 06/04/2021 1500 EST LMOM for Lenka reminding her of her appointment with Dr. Mejia on Jun 05 at 9:00am. Requestedthat she call with any questions or if she is experiencing any symptoms of COVID. documented in this encounter Plan of Treatment Not on file documented as of this encounter Visit Diagnoses Not on filedocumented in this encounter Care Teams Spar Finisher Relationship Specialty Start Date End Date Isabela Mitchell MD [address] [place] [phone] PCP - General Family Medicine - Primary Care 04/08/21 Leonor Parish MD [address] [place] [phone] 05/08/17 documented as of this encounter
--- OUTSIDE RECORDS SUMMARY | 2024-05-13 16:49 | XMS_ITS | Encounter Summary ---
Author Organization [facility] Address [address] [place] [address] Care Team Providers Care Biometrics Analyst Name Role Phone Niko Parish MD Primary Care Provider [phone] Encounter Details Date Type Department Care Team (Late st Contact Info) Description 04/11/2014 Results Only [facility] Laboratory Services - [facility] [address] [place], [place] [phone] Janice Naik MD [address] [place] [address] [place] [address] Social History Tobacco Use Types Packs/Day Years [...] Procedure Name Priority Date/Time Associated Diagnosis Comments PAP TEST- RESULT ONLY Routine 04/11/2014 0:00 EST documented in this encounter Results * PAP TEST- RESULT ONLY (04/11/2014 0:00 EST) Pathology Report: CYTOPATHOLOGY REPORT Reports generated via electronic interface contain original data; however they are lacking the format of the original report. Caution should be taken when reading/interpreti ng unformatted reports. Name: ? TERRY, JB R ? Accession #: ? [id number] ? : ? 1975 (Age: 38) ??F ?Collect Date: ? 04/11/2014 ? Location: ? [facility] ? Receive Date: ? 04/13/2014 ? Provider: JANICE NAIK MD Copy to: NIKO PARISH MD ? Final Report SPECIMEN ADEQUACY ? Satisfactory for Evaluation - transformation zone component present GENERAL CATEGORIZATION ? Negative for Intraepithelial Lesion or Malignancy ?? Comment: ? The specimen was initially received labeled with a date of that conflicted with the stated date of on the patient requisition. ?? In accordance with the Laboratory Specimen Rejection Policy and Laboratory Accountability policy, Hui Lopez was involved with the collection of thespecimen and she has verified that thespecimen was actually collected from Jb TerryESDRAS 77. ??Hui Lopez signed a [facility] Laboratory Accountability form on 04/12/14 @ 15:30. ??This accountability form is filed with the specimen requisition. ? Specimen/Source: ??Pap Test, Cervix/Endocervix, ThinPrep Imaging System with manual evaluation Document reviewed and electronically signed by: ? Rhiannon Reyna, SCT(ASCP) ? Report ??Date: 04/19/2014 15:48 HPV with Pap Test ? Date Ordered: ? 04/19/2014 ? Status: ?? Signed Out ?Date Complete: ? 04/24/2014 ? By: ??System Interface ? Date Reported: ? 04/24/2014 ? Interpretation RESULT: Negative for HPV. No E6 or E7 mRNA is detected from HPV types 16,18,31,33,35, 39,45,51,52,56,58, 59,66, and 68 by financial services auditor mediated amplification. Comments Document reviewed and electronically signed by: ? System Interface ? Report date: 04/24/2014 By the signature above, the attending physician certifies that he/she has personally conducted a gross and/or microscopic examination of the described specimens and rendered or confirmed the above diagnosis. End of Report [facility] 04/11/2014 04/13/2014 us Janice Naik MD PATHOLOGY ORDERABLES Final Resu lt [facility] [address] [place] [address] documented in this encounter Visit Diagnoses Not on filedocumented in this encounter Care Teams Biometrics Analyst Relationship Specialty Start Date End Date Niko Parish MD [address] [place] [phone] PCP - General 02/13/11 05/07/17 documented as of this encounter
--- OUTSIDE RECORDS SUMMARY | 2024-05-13 16:49 | XMS_ITS | Encounter Summary ---
Author Organization [facility] Address [address] [place] [address] Care Team Providers Care Senior Software Tester Name Role Phone Leonor Parish MD Primary Care Provider [phone] Encounter Details Date Type Department Care Team (Late st Contact Info) Description 02/14/2011 11:08 EDT Hospital Encounter [address] [address] Gunner Venegas MD [address] [facility] [address] [place] [phone] Discharge Disposition: Auto Discharge Social History Tobacco [...] Auto Discharge Home documented in this encounter Miscellaneous Notes * Scanned Note-Null - Director Of Conservation, Scan - 03/05/2011 1305 EDT documented in this encounter Plan of Treatment Not on file documented as of this encounter Visit Diagnoses Not on filedocumented in this encounter Care Teams Senior Software Tester Relationship Specialty Start Date End Date Leonor Parish MD [address] [place] [phone] PCP - General 02/13/11 05/07/17 documented as of this encounter
--- OUTSIDE RECORDS SUMMARY | 2024-05-13 16:49 | XMS_ITS | Encounter Summary ---
Author Organization [facility] Address [address] [place] [address] Care Team Providers Care Kosher Butcher Name Role Phone Unavailable Primary Care Provider Unavailabl e Encounter Details Date Type Department Care Team (Latest Contact Info) Description 03/08/2007 10:52 EDT - 03/08/2007 11:59 EDT Hospital Encounter [facility] [address] [place] [address] Britt Bowie CFNP Discharge Disposition: Auto Discharge Social History Tobacco Use Types Packs/Day Years Used Date Smoking Tobacco: Never Assessed Comments Unknown Sex and Gender Information Value Date Recorded Sex Assigned at Not on file Legal Sex Female 18:40 EST Gender Identity Female 05/01/2021 9:25 EST Sexual Orientation Not on file documented as of this encounter Discharge Disposition Disposition Code Departure Means Destination Auto Discharge documented in this encounter Plan of Treatment Not on file documented as of this encounter Visit Diagnoses Not on filedocumented in this encounter
--- OUTSIDE RECORDS SUMMARY | 2024-05-13 16:49 | XMS_ITS | Encounter Summary ---
Author Organization [facility] Address [address] [place] [address] Care Team Providers Care Streetsweeper Operator Name Role Phone Leonor Parish MD Primary Care Provider [phone] Unknown, Provider Primary Care Provider Unava ilable Leonor Parish MD Unavailable Encounter Details Date Type Department Care Team (Late st Contact Info) Description 05/06/2017 Results Only [facility] [phone] Randy Mitchell MD [address] [place] [phone] Social History Tobacco Use Types Packs/Day Years [...] Diagnosis Comments PAP TEST- RESULT ONLY Routine 05/06/2017 0:00 EST documented in this encounter Results * PAP TEST- RESULT ONLY (05/06/2017 0:00 EST) Pathology Report: CYTOPATHOLOGY REPORT Reports generated via electronic interface contain original data; however they are lacking the format of the original report. Caution should be taken when reading/interpreti ng unformatted reports. Name: ? LENKA TERRY ? Accession #: ? [id number] ? : ? 1975 (Age: 41) ??F ?Collect Date: ? 05/06/2017 ? Location: ? [facility] ? Receive Date: ? 05/08/2017 ? Provider: RANDY MITCHELL MD Copy to: ? Final Report SPECIMEN ADEQUACY ? Satisfactory for Evaluation - transformation zone component present GENERAL CATEGORIZATION ? Negative for Intraepithelial Lesion or Malignancy ?? Last Menstrual Period: 04/24/2017 Hormonal/Contracep tive status: None Specimen/Source: ??Pap Test, Cervix, ThinPrep Imaging System with manual evaluation Document reviewed and electronically signed by: ? ÁLVARO Davis(ASCP) ? Report ??Date: 05/20/2017 15:33 HPV with Pap Test ? Date Ordered: ? 05/20/2017 ? Status: ?? Signed Out ?Date Complete: ? 05/22/2017 ? By: ??System Interface ? Date Reported: ? 05/22/2017 ? Interpretation RESULT: Negative for HPV. No E6 or E7 mRNA is detected from HPV types 16,18,31,33,35, 39,45,51,52,56,58, 59,66, and 68 by brake lining curer mediated amplification. Comments Document reviewed and electronically signed by: ? System Interface ? Report date: 05/22/2017 By the signature above, the attending physician certifies that he/she has personally conducted a gross and/or microscopic examination of the described specimens and rendered or confirmed the above diagnosis. End of Report [facility] 05/06/2017 05/08/2017 us Randy Mitchell MD PATHOLOGY ORDERABLES Final Res ult [facility] [address] [place] [address] documented in this encounter Visit Diagnoses Not on filedocumented in this encounter Care Teams Streetsweeper Operator Relationship Specialty Start Date End Date Leonor Parish MD [address] [place] [address] PCP - General 02/13/11 05/07/17 Unknown, Provider, [address] [place] [address] PCP - General 05/08/17 Leonor Parish MD [address] [place] [address] 05/08/17 documented as of this encounter
--- OUTSIDE RECORDS SUMMARY | 2024-05-13 16:49 | XMS_ITS | Encounter Summary ---
Author Organization [facility] Address [address] [place] [address] Care Team Providers Care Zyglo Inspector Name Role Phone Leonor Parish MD Primary Care Provider [phone] Encounter Details Date Type Department Care Team (Late st Contact Info) Description 03/06/2011 Results Only Imaging [facility] Surgical Oncology - [address] [address] Susanne Irby, DO [address] [facility], [address] [place] [phone] Social History Tobacco Use Types Packs/Day Years [...] Procedure Name Priority Date/Time Associated Diagnosis Comments [facility] [place] ONLY 03/07/2011 13:50 EDT documented in this encounter Results * [facility]AST [facility] ONLY (03/07/2011 13:50 EDT) Anatomical Region Laterality Modality Other 03/07/2011 13:5 0 EDT Narrative 03/07/2011 13:50 EDT See Notes Tab. Procedure Note 03/07/2011 See Notes Tab. us Susanne Irby DO IMG US ORDERABLES Final Res ult documented in this encounter Visit Diagnoses Not on filedocumented in this encounter Care Teams Zyglo Inspector Relationship Specialty Start Date End Date Leonor Parish MD [address] [place] [phone] PCP - General 02/13/11 05/07/17 documented as of this encounter
--- OUTSIDE RECORDS SUMMARY | 2024-05-13 16:49 | XMS_ITS | Clinical Summary ---
Author Organization [facility] Address [address] [place] [address] Care Team Providers Care Medical Laboratory Technicians Name Role Phone Leonor Parish MD Unavailable Isabela Mitchell MD Primary Care Provider [phone] Allergies Active Allergy Reactions Criticality Noted Date Comments Opioids - Morphine Analogues Nausea And Vomiting 05/01/2021 Penicillins High 03/07/2011 Stiff spine, hard of breathing. Medications NAPROXEN ORAL Take 500 mg by mouth 2 times daily. Active DOCOSAHEXANOIC ACID/EPA (FISH OIL ORAL) Take 7,000 mg by mouth daily. Active ERGOCALCIFEROL, VITAMIN D2, (VITAMIN D ORAL) Take 6,000 mg by mouth daily. Active predniSONE (DELTASONE) 20 mg tablet Take 20 mg by mouth 2 times daily. Slow taper Active pregabalin (LYRICA) 150 mg capsule Take 150 mg by mouth 3 times daily. Active traMADol (ULTRAM) 50 mg tablet Take 50 mg by mouth 3 times daily as needed for Pain. Active acetaminophen (TYLENOL) 500 mg tablet Take 500 mg by mouth 3 times daily. Active senna (SENOKOT) 8.6 mg tablet Take 17.2 mg by mouth 2 times daily. Active Multivitamins with Minerals tablet tablet Take 1 Tablet by mouth daily. Active calcium carb/magnesium ox,carb (JHON-MAG ORAL) Take by mouth. Active bisacodyL (DULCOLAX) [address] 10 mg rectally daily. Active Medical History Medical History Date Comments Fibromyalgia Arthritis Family History Medical History Relation Comments Cancer Sister Breast Relation Status Comments Sister Social History Tobacco Use Types Packs/Day Years Used Date Smoking Tobacco: Never Smokeless Tobacco: Never Alcohol Use Standard Drinks/Week Comments No 0 (1 standard drink = 0.6 oz pur e alcohol) Comments No Sex and Gender Information Value Date Recorded Sex Assigned at Not on file Legal Sex Female 18:40 EST Gender Identity Female 05/01/2021 9:25 EST Sexual Orientation Not on file Obstetrics History Last Filed Vital Signs Vital Sign Reading Time Taken Comments Blood Pressure 126/78 05/01/2021 08 EST Pulse 74 05/01/2021 0824 EST regular Temperature 36.9 ??C (98.5 ??F) 05/01/2021 0824 EST Respiratory Rate 18 05/01/2021 08 EST Oxygen Saturation 98% 05/01/2021 08 EST Inhaled Oxygen Concentration - - Weight 95.7 kg (211 lb) 05/01/2021 08 EST Height - - Body Mass Index - - Plan of Treatment Health Maintenance Due Date Last Done Comments Hepatitis C Screen 1975 Hepatitis B Vaccine (1 of 3 - 19+ 3-dose series) 12/24 COVID-19 Vaccine ( season) 2024 Medical Devices Implanted Type Area Auto Body Mechanic Device Identifier Shelf Expiration Date Model / Serial / Lot Mirena Iud-Mr Safe Insurance * Guarantor: Lenka Landeros Account Type Relation to Patient Date of Phone Billing Address Personal/Family Self 1975 [phone] (Work) [address] [place] [id number] JELANI * Guarantor: Lenka Landeros Account Type Relation to Patient Date of Phone Billing Address Personal/Family Self 1975 [phone] (Work) [address] [place] [address] * Guarantor: Lenka Landeros Account Type Relation to Patient Date of Phone Billing Address Personal/Family Self 1975 [phone] (Work) [address] [place] [address] * Guarantor: Lenka Landeros Account Type Relation to Patient Date of Phone Billing Address Personal/Family Self 1975 [phone] (Work) [address] [place] [address] * Guarantor: Lenka Landeros Account Type Relation to Patient Date of Phone Billing Address Personal/Family Self 1975 [phone] (Work) [address] [place] [address] * Guarantor: Lenka Landeros Account Type Relation to Patient Date of Phone Billing Address Personal/Family Self 1975 [phone] (Work) [address] [place] [address] * Guarantor: Lenka Landeros Account Type Relation to Patient Date of Phone Billing Address Personal/Family Self 1975 [phone] (Work) [address] [place] [address] * Guarantor: Lenka Landeros Account Type Relation to Patient Date of Phone Billing Address Personal/Family Self 1975 [phone] (Work) [address] [place] [address] Care Teams Medical Laboratory Technicians Relationship Specialty Start Date End Date Isabela Mitchell MD [address] [place] [address] PCP - General Family Medicine - Primary Care 04/08/21 Leonor Parish MD [address] [place] [phone] 05/08/17
--- OUTSIDE RECORDS SUMMARY | 2024-05-13 16:49 | XMS_ITS | Encounter Summary ---
Author Organization [facility] Address [address] [place] [address] Care Team Providers Care Plastic Mould Maker Name Role Phone Leonor Parish MD Unavailable Isabela Mitchell MD Primary Care Provider Encounter Details Date Type Department Care Team (Late st Contact Info) Description 05/01/2021 Orders Only [facility] Radiology - [facility] [address] [place], [place] [address] Larry Jarrett MD [address] [facility] [place], [address] [place] [address] Social History Tobacco Use Types Packs/Day Years [...] on filedocumented in this encounter Care Teams Plastic Mould Maker Relationship Specialty Start Date End Date Isabela Mitchell MD [address] [place] [phone] PCP - General Family Medicine - Primary Care 04/08/21 Leonor Parish MD [address] [place] [phone] 05/08/17 documented as of this encounter
--- OUTSIDE RECORDS SUMMARY | 2024-05-13 16:49 | XMS_ITS | Encounter Summary ---
Author Organization [facility] Address [address] [place] [address] Care Team Providers Care Clinical Quality Manager Name Role Phone Leonor Parish MD Primary Care Provider [phone] Reason for Visit * Reason Comments Breast Mass Encounter Details Date Type Department Care Team ([facility] st Contact Info) Description 03/07/2011 13:00 EDT Office Visit [facility] Surgical Oncology - [address] [id number] Susanne Irby, [address] [facility], [address] 2 [place] [address] Breast pain (Primary Dx) Social History Tobacco Use Types Packs/Day Years [...] on file documented as of this encounter Last Filed Vital Signs Vital Sign Reading Time Taken Comments Blood Pressure 111/59 03/07/2011 1256 EDT Pulse 81 03/07/2011 1256 EDT Temperature 36.3 ??C (97.3 ??F) 03/07/2011 1256 EDT Respiratory Rate 16 03/07/2011 1256 EDT Oxygen Saturation - - Inhaled Oxygen Concentration - - Weight - - Height - - Body Mass Index - - documented in this encounter Progress Notes * Susanne Irby DO - 03/07/2011 0981 EDT Subjective: Patient ID: Monie Landeros is an 35 y.o. female. Chief Complaint Patient presents with ??? Breast Mass HPI Monie is a very pleasant 35-year-old female seen in consultation at the request of Dr Leonor Parish for some left breast fullness and pain. The patient states that she noticed this approximately 3 months ago. The pain has been fairly consistent since then. It is greater on the left than on the right. She does not appreciate that it is any different with her menstrual cycle. She feels that associated with this pain are some lumps. Of note, she does have a family history of breast cancer diagnosedin her sister at the age of 37. This breast cancer was treated with mastectomy alone. 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 The patient does not take any hormone repl acement. She is premenopausal. There is no problem list on file for this patient. Past Medical History Diagnosis Date ??? Fibromyalgia ??? Arthritis History reviewed. No pertinent past surgical history. Family History Problem Relation Age of Onset ??? Cancer Sister 37 Breast Social History Substance Use Topics ??? Smoking status: Never Smoker ??? Smokeless tobacco: Not on file ??? Alcohol Use: No No current outpatient prescriptions on file prior to visit. Allergies Allergen Reactions ??? Opium Nausea And Vomiting ??? Penicillins Stiff spine, hard of breathing. Review of Systems Constitutional: Negative for fever, chills and weight loss. HENT: Negative for hearing loss. Eyes: Negative for blurred vision, double vision and photophobia. Respiratory: Negative for cough, shortness of breath and wheezing. Cardiovascular: Negative for chest pain and palpitations. Gastrointestinal: Positive for nausea (when worrying about breast pain). Negative for heartburn, vomiting and abdominal pain. Genitourinary: Negative for dysuria, urgency and frequency. Musculoskeletal: Positive for myalgias and joint pain. Neurological: Negative for sensory change, focal weakness and headaches. - See HPI Objective: BP 111/59 Pulse 81 Temp(Src) 36.3 ??C (97.3 ??F) (Tympanic) Resp 16 Physical Exam Constitutional: She is oriented to person, place, and time. She appears well- developed and well-nourished. No distress. Eyes: EOM are normal. Pupils are equal, round, and reactive to light. Neck: No thyromegaly present. Cardiovascular: Normal rate and regular rhythm. No murmur heard. Pulmonary/Chest: Breath sounds normal. She has no wheezes. She has no rales. Abdominal: Soft. She exhibits no distension. There is no tenderness. Lymphadenopathy: She has no cervical adenopathy. Neurological: She is alert and oriented to person, place, and time. Breast: Breasts and axilla are examined in the seated and the supine position. There are no obviousmasses palpated in either breast. There is no nipple inversion or discharge. There are no axillary masses. Assessment: I had a very lengthy discussion with Monie and her today regarding her breast pain. I reviewed with them her mammography and ultrasound in detail. This was a birad II on the left and birad I on the right. It simply showed some fibrocystic changes in the breasts that were largely unchangedfrom her most recent mammography in 2007. I recommended that she wear a well-fitting tight bra. I recommend that she avoid caffeine. I also recommended that she trial evening primrose oil as this canbe sometimes quite helpful in patients with breast pain. Should she develop any additional worrisome concerns, she can certainly return to the clinic at any time for followup. I also strongly encouraged her to follow up on her sister's genetic testing. If this were to have come back positive, then I would obviously recommend that she proceed with genetic testing as well. This would also increase the need for surveillance and likely mean that we would move towards surveillance with MRI. If her sister's genetic testing is negative, then I would continue to follow her with yearly mammography starting at the age of 40. Both she and her expressed an understanding of this and will follow up as needed. Plan: Monie was seen today for breast mass. Diagnoses and associated orders for this visit: Breast pain Other Orders - NAPROXEN ORAL; Take 500 mg by mouth 2 times daily. - DOCOSAHEXANOIC ACID/EPA (FISH OIL ORAL); Take 7,000 mg by mouth daily. - ERGOCALCIFEROL, VITAMIN D2, (VITAMIN D ORAL); Take 6,000 mg by mouth daily. documented in this encounter Miscellaneous Notes * Scanned Note-Null - Gas Substation Operator, Scan - 03/11/2011 4267 EDT documented in this encounter Plan of Treatment Not on file documented as of this encounter Visit Diagnoses Diagnosis Breast pain- Primary Mastodynia documented in this encounter Historical Medications * This list may reflect changes made after this encounter. ERGOCALCIFEROL, VITAMIN D2, (VITAMIN D ORAL) Take 6,000 mg by mouth daily. DOCOSAHEXANOIC ACID/EPA (FISH OIL ORAL) Take 7,000 mg by mouth daily. NAPROXEN ORAL Take 500 mg by mouth 2 times daily. added in this encounter Care Teams Clinical Quality Manager Relationship Specialty Start Date End Date Leonor Parish MD [address] [place] [phone] PCP - General 02/13/11 05/07/17 documented as of this encounter
--- OUTSIDE RECORDS SUMMARY | 2024-05-13 16:49 | XMS_ITS | Encounter Summary ---
Author Organization Health system Address [address] [place] [address] Care Team Providers Care Supervisor Customer Services Name Role Phone Unavailable Primary Care Provider Unavailabl e Encounter Details Date Type Department Care Team (Late st Contact Info) Description 05/04/2008 11:15 EST Hospital Encounter [facility] - Other [address] [place] [address] Leonor Parish MD [address] [place] [phone] Social History Tobacco Use Types Packs/Day Years [...] Procedure Name Priority Date/Time Associated Diagnosis Comments MA MAMMO SCREENING DIGITAL 05/04/2008 11:41 EST documented in this encounter Results * MA MAMMO SCREENING DIGITAL (05/04/2008 11:41 EST) Anatomical Region Laterality Modality Other 05/04/2008 11:4 1 EST Narrative 10/09/2008 8:40 EDT routine Comparison is made to films from 03/08/2007 (bilateral). Bilateral Breast Findings: (CAD used to interpret routine digital): There are scattered fibroglandular densities. No significant masses, calcifications or other abnormalities are seen. IMPRESSION: BILATERAL BREASTS - CATEGORY 1 Negative, no evidence of malignancy. Normal interval follow-up is recommended in 12 months. OVERALL ASSESSMENT - NEGATIVE END OF IMPRESSION The patient will be notified of her/his breast imaging results via a lay letter from Radiology. ??Radiology will contact the patient directly regarding any findings which require additional imaging (Category 0) at this time. Procedure Note Renea Pugh MD - 10/09/2008 routine Comparison is made to films from 03/08/2007 (bilateral). Bilateral Breast Findings: (CAD used to interpret routine digital): There are scattered fibroglandular densities. No significant masses, calcifications or other abnormalities are seen. IMPRESSION: BILATERAL BREASTS - CATEGORY 1 Negative, no evidence of malignancy. Normal interval follow-up is recommended in 12 months. OVERALL ASSESSMENT - NEGATIVE END OF IMPRESSION The patient will be notified of her/his breast imaging results via a lay letter from Radiology. Radiology will contact the patient directly regarding any findings which require additional imaging (Category 0) at this time. us Leonor Parish MD IMG MAMMOGRAPHY ORDERABLES Final Result documented in this encounter Visit Diagnoses Not on filedocumented in this encounter
--- OUTSIDE RECORDS SUMMARY | 2024-05-13 16:49 | XMS_ITS | Referral Summary ---
Author Organization [facility] Address [address] [place] [address] Care Team Providers Care Nuclear Logging Engineer Name Role Phone Leonor Parish MD Unavailable Isabela Mitchell MD Primary Care Provider [phone] Allergies Active Allergy Reactions Criticality Noted Date [...] suppository Place 10 mg rectally daily. Active Social History Tobacco Use Types Packs/Day Years Used Date Smoking Tobacco: Never Smokeless Tobacco: Never Alcohol Use Standard Drinks/Week Comments No 0 (1 standard drink = 0.6 oz pur e alcohol) Comments No Sex and Gender Information Value Date Recorded Sex Assigned at Not on file Legal Sex Female 18:40 EST Gender Identity Female 05/01/2021 9:25 EST Sexual Orientation Not on file Last Filed Vital Signs Vital Sign Reading Time Taken Comments Blood Pressure 126/78 05/01/2021 08 EST Pulse 74 05/01/2021823 EST regular Temperature 36.9 ??C (98.5 ??F) 05/01/2021 08 EST Respiratory Rate 18 05/01/2021 08 EST Oxygen Saturation 98% 05/01/2021823 EST Inhaled Oxygen Concentration - - Weight 95.7 kg (211 lb) 05/01/2021823 EST Height - - Body Mass Index - - Plan of Treatment Not on file Medical Devices Implanted Type Area Child Care Lead Teacher Device Identifier Shelf Expiration Date Model / Serial / Lot Mirena Iud-Mr Safe Insurance * Guarantor: Lenka Landeros Account Type Relation to Patient Date of Phone Billing Address Personal/Family Self 1975 [phone] (Work) [address] [place] [address] STEVEN * Guarantor: Lenka Landeros Account Type Relation to Patient Date of Phone Billing Address Personal/Family Self 1975 [phone] (Work) [address] [place] [address] * Guarantor: Lenka Landeros Account Type Relation to Patient Date of Phone Billing Address Personal/Family Self 1975 [phone] (Work) [address] [place] [address] * Guarantor: Lenka Landeros Account Type Relation to Patient Date of Phone Billing Address Personal/Family Self 1975 [phone] (Work) [address] [place] [address] * Guarantor: Lenka Landeros Account Type Relation to Patient Date of Phone Billing Address Personal/Family Self 1975 [phone] (Work) [address] [place] [address] * Guarantor: Lenka Landeros Account Type Relation to Patient Date of Phone Billing Address Personal/Family Self 1975 [phone] (Work) [address] [place] [address] * Guarantor: Lenka Landeros Account Type Relation to Patient Date of Phone Billing Address Personal/Family Self 1975 [phone] (Work) [address] [place] [address] * Guarantor: Lenka Landeros Account Type Relation to Patient Date of Phone Billing Address Personal/Family Self 1975 [phone] (Work) [address] [place] [address] Care Teams Nuclear Logging Engineer Relationship Specialty Start Date End Date Isabela Mitchell MD [address] [place] [phone] PCP - General Family Medicine - Primary Care 04/08/21 Leonor Parish MD [address] [place] [phone] 05/08/17
--- OUTSIDE RECORDS SUMMARY | 2024-05-13 16:49 | XMS_ITS | Encounter Summary ---
Author Organization [facility] Address [address] [place] [address] Care Team Providers Care Signal Maintainer Name Role Phone Leonor Parish MD Unavailable Isabela Mitchell MD Primary Care Provider [phone] Reason for Visit * Reason Onset Date Comments Appointment Related 05/21/2021 Encounter Details Date Type Department Care Team (Late st Contact Info) Description 05/21/2021 Telephone [facility] Neurosurgery - [address] [phone] Antonio Mejia MD [address] [facility], [address] [place] [address] Appointment Related Social History Tobacco [...] * Telephone Encounter - Janey Berumen - 05/21/2021 1018 EST Images from the original note were not included. LMOM for Sabrinamaddy regarding below office visit with Dr. Mejia. [facility] CT [facility] and [facility] MRI here on 05/27. Requested she call with any questions. documented in this encounter Plan of Treatment Not on file documented as of this encounter Visit Diagnoses Not on filedocumented in this encounter Care Teams Signal Maintainer Relationship Specialty Start Date End Date Isabela Mitchell MD [address] [place] [phone] PCP - General Family Medicine - Primary Care 04/08/21 Leonor Parish MD [address] [place] [phone] 05/08/17 documented as of this encounter
--- OUTSIDE RECORDS SUMMARY | 2024-05-13 16:49 | XMS_ITS | Encounter Summary ---
Author Organization [facility] Address [address] [place] [address] Care Team Providers Care Control Systems Technician Name Role Phone Unavailable Primary Care Provider Unavailabl e Encounter Details Date Type Department Care Team ([facility] st Contact Info) Description 09/10/2006 Before PRISM Converted Visit (Maple) [facility] - Maple conversion [address] [place] [address] Britt Bowie CFNP Social History Tobacco Use Types Packs/Day Years Used Date Smoking Tobacco: Never Assessed Comments Unknown Sex and Gender Information Value Date Recorded Sex Assigned at Not on file Legal Sex Female 18:40 EST Gender Identity Female 05/01/2021 9:25 EST Sexual Orientation Not on file documented as of this encounter Progress Notes * Luis E, John Seo Manager - 04/01/2009 1145 EST OF SURGICAL ONCOLOGY - [facility] PROGRESS/FOLLOWUP NOTE - 09/10/2006 PROBLEM Positive family history of breast cancer. SUBJECTIVE This 30-year-old woman comes to the [facility] today sent for evaluation by Leonor Parish MD,for a positive family history of breast cancer. The patient has had no personal breast problems. Shehas no history of breast biopsy or abnormalities. She is in the habit of doing self-breast exams. She denies any skin change or dimpling, nipple discharge, any new breast pain or tenderness. PAST MEDICAL HISTORY Slightly elevated cholesterol and the patient feels she is overweight. She considers herself to be at a good level of wellness. She has never been a cigarette smoker and does not use alcohol. HAND HOSE CUTTER HISTORY Menarche at age 12. She is premenopausal. She is G4, P4. Age at first delivery 19. She does get regular HAND HOSE CUTTER exams. She has a history of oral contraceptive use with several different pills. She has used these on and off over a 10-year period. CURRENT MEDICATIONS Multivitamin, vitamin D, a topical lotion for eczema, vitamin-enriched protein powder, calcium, andcamomile lavender and peppermint. REVIEW OF SYSTEMS Shows fatigue which she is working on with diet and exercise, and also topical dermatitis or eczema. FAMILY HISTORY Significant for a sister at age 37 with breast cancer. She had total mastectomy. She has a paternalgrandfather with prostate cancer. A maternal grandfather with colon cancer at age 65. A maternal grandmother with leukemia at age 43. OBJECTIVE In general, looks well. BREAST EXAM: There are no palpable cervical, clavicular, or axillary nodes. The patient is examinedin the sitting and supine positions. The breasts are symmetric. There is no dimpling, thickening, nipple change, or discharge. There are no discrete masses palpable either breast. Using the office ultrasound machine, both breasts are scanned in their entirety. There is no ultrasound abnormality noted either breast. ASSESSMENT Clinically normal breast exam. PLAN Discussed with the patient are the risk factors for breast cancer. With her sister having a premenopausal breast cancer, this does increase the patients risk. Of note, the patientsister has had genetic testing and the results are pending. At this point, for this patient, we would recommend monthly self-breast exam, [id number] clinical exam, and annual mammography. We will plan to recheck her here in six months with a mammogram at that time. We will then alternate visits with her HAND HOSE CUTTER exams through her primary care office. We also reviewed the role of diet and exercise. The patient does tend to buy soy products by bulk from the co-op. Advised we do not know how much in the way of soy products is reasonable versus too much. Would suggest she monitor her use of the soy. The remainder of the patients questions were answered. We will schedule the six- month appointment and mammogram for her. She is reminded to call here sooner with any questions, any problems. Signed by ANA Wright 09/15/2006 17:57 Greg Connell CFNP ANA Wright - ANA Wright P - kd Job ID: [id number] Document ID: [id number] cc: Leonor Parish MD - ANA Bowie P - kd Job ID: [id number] Document ID: [id number] cc: Leonor Parish MD documented in this encounter Plan of Treatment Not on file documented as of this encounter Visit Diagnoses Not on filedocumented in this encounter
--- OUTSIDE RECORDS SUMMARY | 2024-05-13 16:49 | XMS_ITS | Encounter Summary ---
Author Organization [facility] Address [address] [place] [address] Care Team Providers Care Aircraft Instrument Mechanic Name Role Phone Leonor Parish MD Primary Care Provider Reason for Visit * Reason Onset Date Comments Appointment Related 02/27/2011 Encounter Details Date Type Department Care Team (Late st Contact Info) Description 02/27/2011 Telephone [facility] Surgical Oncology - [address] [id number] Leonor Parish MD [address] [place] [phone] Appointment Related Social History Tobacco Use Types Packs/Day Years Used Date Smoking Tobacco: Never Assessed Comments Unknown Sex and Gender Information Value Date Recorded Sex Assigned at Not on file Legal Sex Female 18:40 EST Gender Identity Female 05/01/2021 9:25 EST Sexual Orientation Not on file documented as of this encounter Miscellaneous Notes * Telephone Encounter - Tamara Olmedo - 02/27/2011 1522 EDT Patient is scheduled with Dr. Irby to discuss mammo results and high risk. * Telephone Encounter - Arelis Cardozo V. - 02/27/2011 1142 EDT Pt would like to re-establish care here family hx and lump found on recent mammo (02/14/11 [facility]) documented in this encounter Plan of Treatment Not on file documented as of this encounter Visit Diagnoses Not on filedocumented in this encounter Care Teams Aircraft Instrument Mechanic Relationship Specialty Start Date End Date Leonor Parish MD [address] [place] [phone] PCP - General 02/13/11 05/07/17 documented as of this encounter
--- OUTSIDE RECORDS SUMMARY | 2024-05-13 16:49 | XMS_ITS | Encounter Summary ---
Author Organization [facility] Address [address] [place] [address] Care Team Providers Care Nutter Up Name Role Phone Leonor Parish MD Primary Care Provider [phone] Unknown, Provider MD Primary Care Provider Unava ilable Leonor Parish MD Unavailable Encounter Details Date Type Department Care Team (Late st Contact Info) Description 08/19/2011 Historical Results Only [facility] - Main [place] [address] [place] [phone] Leonor Parish MD [address] [place] [phone] Social History Tobacco Use Types Packs/Day [...] Name Priority Date/Time Associated Diagnosis Comments PAP TEST Routine 08/19/2011 documented in this encounter Results * PAP TEST (08/19/2011) 08/19/2011 08/19/2011 16: 29 EDT Narrative [facility] - 08/22/2011 15:17 EDT ----- ------- Name: JB TERRY ? : 77 ?Age/Sex: 43/F ?Unit#: [id number] ? Loc: LAB.OPX ? Status: REG REF ?? Reg Date: 08/19/11 ? Pt.Phone Number: ? ----- ------- Specimen: [id number] ?STATUS: SOUT ?Spec Date:08/19/11 ? Physician Copies: ?Leonor Parish MD ? Tissues: ? Cervical/Endo Pap ?WILLIAM GARDNER ? CPT: 06056 ?? Units: ??1 ----- ------- ? CYTOLOGY DIAGNOSIS SPECIMEN ADEQUACY: ?Satisfactory for evaluation. Transformation zone component present. GENERAL CATEGORIZATION: ?Negative for Intraepithelial Lesion or Malignancy DESCRIPTIVE DIAGNOSIS: ? Negative for Intraepithelial Lesion or Malignancy. RECOMMENDATIONS/COMMENTS: ?None. ----- ------- ?HPV DNA RESULTS ?? 08/19/11 UNK ??HPV DNA RESULT ??NEG ? Negative for HPV types 16, 18, 31, 33, 35, 39, 45, 51, 52, ? 56, 58, 59, 66, 68. ? Method: Cervista HPV HR (High Risk) DNA test. ----- ------- ORDER QUERIES: LMP: 07/24/11- ? N Post ? N ??PREVIOUS ATYPICAL: N BCP/HRT? ?? Rad Rx? ?? IUD?PAP PLUS HPV? Y ??REFLEX TO HR-HPV IF ASCUS ?? REFLEX TO HPV 16/18 IF HPV POS/PAP NEG ?? HPV REGARDLESS?RFLX HPV IF LSIL ?? IF ASCUS DO HPV? N Signed Tam Morris CT(ASCP) 08/22/11 ? By the signature above, the attending physician certifies that he/she has personally conducted a gross and/or microscopic examination of the described specimens and rendered or confirmed the above diagnosis. Test Performed by [facility], [address] [place], [place] [id number] [employer] Social [employer] Teacher: Martha Bennett MD PHD ----- ------- us Leonor Parish MD PATHOLOGY ORDERABLES Final Resul t [facility] documented in this encounter Visit Diagnoses Not on filedocumented in this encounter Care Teams Nutter Up Relationship Specialty Start Date End Date Leonor Parish MD [address] [place] [phone] PCP - General 02/13/11 05/07/17 Unknown, Provider, [address] [place] [address] PCP - General 05/08/17 Leonor Parish MD [address] [place] [phone] 05/08/17 documented as of this encounter
--- OUTSIDE RECORDS SUMMARY | 2024-05-13 16:49 | XMS_ITS | Encounter Summary ---
Author Organization [facility] Address [address] [place] [address] Care Team Providers Care Public Works Supervisor Name Role Phone Unavailable Primary Care Provider Unavailabl e Encounter Details Date Type Department Care Team (Latest Contact Info) Description 09/10/2006 8:41 EDT - 09/10/2006 11:59 EDT Hospital Encounter [facility] [address] [place] [address] Britt Bowie CFNP Discharge Disposition: Auto Discharge [...]
--- OUTSIDE RECORDS SUMMARY | 2024-05-13 16:49 | XMS_ITS | Encounter Summary ---
Author Organization [facility] Address [address] [place] [address] Care Team Providers Care Bridge Crane Operator Name Role Phone Unknown, Provider Primary Care Provider Leonor Doyle MD Unavailable Reason for Visit * (Routine/Next Available) - Receiving Office to Obtain Authorization Specialty Diagnoses / Procedures Referred By Contac t Referred To Contact Procedures MR OUTSIDE IMAGES NEURO Unknown, Provider, MD Referral ID Status Reason Start Date Expiration Date Visits Requested Visits Authorized [id number] Receiving Office to Obtain Authorization 1 1 1 Encounter Details Date Type Department Care Team (Latest Contact Info) Description 03/21/2021 - 03/21/2021 23:59 EDT Hospital Encounter [facility] Secondary Reads [place] Discharge Disposition: [...] Diagnosis Comments MR OUTSIDE IMAGES NEURO Routine 03/22/2021 7:45 EDT documented in this encounter Results * MR OUTSIDE IMAGES NEURO (03/22/2021 7:45 EDT) Narrative 03/22/2021 7:45 EDT This is a non-reportable exam. us Provider Unknown MD IMG OTHER IMAGING ORDERABLES Final Result documented in this encounter Visit Diagnoses Not on filedocumented in this encounter Care Teams Bridge Crane Operator Relationship Specialty Start Date End Date Unknown, Provider, PCP - General 05/08/17 04/07/21 Leonor Parish MD [address] [place] [phone] 05/08/17 documented as of this encounter
--- OUTSIDE RECORDS SUMMARY | 2024-05-13 16:49 | XMS_ITS | Encounter Summary ---
Author Organization [facility] Address [address] [place] [address] Care Team Providers Care Kiln Cleaner Name Role Phone Unavailable Primary Care Provider Unavailabl e Encounter Details Date Type Department Care Team (Latest Contact Info) Description 03/08/2007 10:51 EDT - 03/08/2007 11:59 EDT Hospital Encounter [facility] [address] [place] [address] Britt Bowie CFNP Discharge Disposition: Auto Discharge [...] Associated Diagnosis Comments MA MAMMO SCREENING DIGITAL 03/08/2007 11:57 EDT documented in this encounter Results * MA MAMMO SCREENING DIGITAL (03/08/2007 11:57 EDT) Anatomical Region Laterality Modality Other 03/08/2007 11:5 7 EDT Narrative 11/13/2008 1:51 EDT baseline bcc at 13:00 This is the patient's baseline exam. Bilateral Breast Findings: (CAD used to interpret [...] time. Procedure Note Renea Pugh MD - 11/13/2008 baseline bcc at 13:00 This is the patient's baseline exam. Bilateral Breast Findings: (CAD used to interpret [...] additional imaging (Category 0) at this time. Britt PEREZ IM MAMMOGRAPHY ORDERABLES Fi nal Result documented in this encounter Visit Diagnoses Not on filedocumented in this encounter
--- OUTSIDE RECORDS SUMMARY | 2024-05-13 16:49 | XMS_ITS | Encounter Summary ---
Author Organization [facility] Address [address] [place] [address] Care Team Providers Care Motor Assembly Supervisor Name Role Phone Leonor Parish MD Unavailable Isabela Mitchell MD Primary Care Provider [phone] Encounter Details Date Type Department Care Team (Late st Contact Info) Description 08/01/2021 Lab Requisition [facility] Pathology & Laboratory Medicine - [address] [address] Outr Resulting Lab, Provider Social History Tobacco Use Types Packs/Day Years [...] Procedure Name Priority Date/Time Associated Diagnosis Comments CORTISOL Routine 08/01/2021 7:20 EST documented in this encounter Results * CORTISOL (08/01/2021 7:20 EST) Cortisol 14 See Note ug/dL 08/01/2021 18:48 EST [facility] Comment: NOTE: Reference Ranges (from OCD IFU): Collected Before 10:00 AM: ??4 - 23 ug/dL Collected After 5:00 PM: ?2 - 14 ug/dL The results of this assay can be falsely elevated due to the consumption of Biotin. Blood VENOUS BLOOD / Unknown 08/01/2021 7:20 EST 08/01/2021 17:42 EST us Provider Outr Resulting Lab CHEMISTRY & BLOOD GA S ORDERABLES Final Result Performing Organization Address City/State/[facility] Co de Phone Number [facility] [address] [place] [address] documented in this encounter Visit Diagnoses Not on filedocumented in this encounter Care Teams Motor Assembly Supervisor Relationship Specialty Start Date End Date Isabela Mitchell MD [address] [place] [phone] PCP - General Family Medicine - Primary Care 04/08/21 Leonor Parish MD [address] [place] [phone] 05/08/17 documented as of this encounter
--- OUTSIDE RECORDS SUMMARY | 2024-05-13 16:49 | XMS_ITS | Encounter Summary ---
Author Organization [facility] Address [address] [place] [address] Care Team Providers Care Form Grader Operator Name Role Phone Leonor Parish MD Unavailable Isabela Mitchell MD Primary Care Provider [phone] Reason for Referral * Radiology Services (Routine/Next Available) - Closed Specialty Diagnoses / Procedures Referred By Nickie alarcon Referred To Contact Radiology Diagnoses Brain mass Procedures MR HEAD W WO CONTRAST Antonio Mejia MD Phone: tel: fax: [facility] Referral ID Status Reason Start Date Expiration Date Visits Re quested Visits Authorized [id number] Closed 05/01/2021 1 1 Reason for Visit * Radiology Services (Routine/Next Available) - Closed Specialty Diagnoses / Procedures Referred By Nickie alarcon Referred To Contact Radiology Diagnoses Brain mass Procedures MR HEAD W WO CONTRAST Antonio Mejia MD Phone: tel: fax: [facility] Referral ID Status Reason Start Date Expiration Date Visits Re quested Visits Authorized [id number] Closed 05/01/2021 1 1 Encounter Details Date Type Department Care Team (Latest Contact Info) Description 05/27/2021 17:40 EST - 05/27/2021 23:59 EST Hospital [facility] - [facility] [place] [address] [place], [place] [phone] Brain mass Discharge Disposition: Home or Self Care Social [...] Name Priority Date/Time Associated Diagnosis Comments MR HEAD W WO CONTRAST Routine 05/27/2021 19:48 EST Brain mass POCT CREATININE, ISTAT Routine 05/27/2021 19:06 EST documented in this encounter Results * MR HEAD W WO CONTRAST (05/27/2021 19:48 EST) Anatomical Region Laterality Modality Head Magnetic Resonan ce 05/28/2021 12:4 8 EST Impressions 05/28/2021 12:48 EST Unchanged size and appearance of the lobulated, enhancing, T2 hyperintense mass in the region of the left foramen of 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 Additional considerations include ependymoma, subependymoma, and schwannoma, although schwannoma is less favored given the lobulated appearance. The appearance could also be consistent with metastatic disease, although this is felt to be unlikely in the absence of a history of malignancy. Narrative 05/28/2021 12:48 EST EXAM: MRI HEAD WO/W CONTRAST HISTORY: Brain/FARM ASSISTANT neoplasm, monitor TECHNIQUE: MRI head without and with intravenous gadolinium contrast, IAC/temporal bone protocol. Structured report code: [id number].[id number] COMPARISON: 03/21/2021 FINDINGS: PARENCHYMA: No evidence of infarction. No parenchymal hemorrhage. No mass or midline shift. EXTRA-AXIAL SPACES: The previously described T2 hyperintense and enhancing lesion in the region of the left foramen of Luschka is unchanged in size measuring 1.0 x 0.8 x 1.0 cm (AP X TRV X CC). VENTRICLES: No hydrocephalus. VESSELS: The flow voids and intravascular enhancement are normal. BONES: Unremarkable. ORBITS: No significant abnormality. PARANASAL SINUSES: Predominantly clear. EXTRACRANIAL SOFT TISSUES: Unremarkable. Procedure Note Carl Schmitt MD - 05/28/2021 EXAM: MRI HEAD WO/W CONTRAST HISTORY: Brain/FARM ASSISTANT neoplasm, monitor TECHNIQUE: MRI head without and with intravenous gadolinium contrast,IAC/temporal bone protocol. Structured report code: [id number].[id number] COMPARISON: 03/21/2021 FINDINGS: PARENCHYMA: No evidence of infarction. No parenchymal hemorrhage. No mass or midlineshift. EXTRA-AXIAL SPACES: The previously described T2 hyperintense and enhancing lesion in theregion of the left foramen of Luschka is unchanged in size measuring 1.0 x0.8 x 1.0 cm (AP X TRV X CC). VENTRICLES: No hydrocephalus. VESSELS: The flow voids and intravascular enhancement are normal. BONES: Unremarkable. ORBITS: No significant abnormality. PARANASAL SINUSES: Predominantly clear. EXTRACRANIAL SOFT TISSUES: Unremarkable. IMPRESSION Unchanged size and appearance of the lobulated, enhancing, T2 hyperintensemass in the region of the left foramen of Luschka with an appearance whichfavors choroid plexus papilloma/carcinoma. Additional considerationsinclude ependymoma, subependymoma, and schwannoma, although schwannoma isless favored given the lobulated appearance. The appearance could also beconsistent with metastatic disease, although this is felt to be unlikelyin the absence of a history of malignancy. us Antonio Mejia MD IMG MRI ORDERABLES Final Re sult * POCT CREATININE, ISTAT (05/27/2021 19:06 EST) Creatinine, Venous, i-STAT 0.9 0.5 - 1.0 mg/dL 05/28/2021 9:34 EST [facility] eGFR, Calculated, i-STAT 78 >60 mL/min/1.7 3m2 05/28/2021 9:34 EST [facility] Blood VENOUS BLOOD / Unknown 05/27/2021 19:06 EST 05/28/2021 9:34 EST Narrative [facility] - 05/28/2021 9:34 EST Test Performed by Radiology Imaging us Provider Unknown POINT OF CARE TEST ORDERABLE S Final Result [facility] [address] [place] [address] documented in this encounter Visit Diagnoses Diagnosis Brain mass Unspecified condition of brain documented in this encounter Administered Medications Inactive Administered Medications - up to 3 most recent administrations Medication Order MAR Action Action Date Dose Rate Site gadoterate meglumine solution 1-30 mL 1-30 mL, intravenous, Once in imaging, 1 dose, Starting on Thu05/27/21 at 1905, Until Thu05/27/21 at 1948, Routine, Imaging Protocol Orders Given 05/27/2021 19:48 EST 20 mL documented in this encounter Orders Medications Ordered That Kota ht Not Have Been Administered Count Last Ordered Date First Ordered Date gadoterate meglumine solution 1-30 mL 1 07/2021 documented in this encounter Care Teams Form Grader Operator Relationship Specialty Start Date End Date Isabela Mitchell MD [address] [place] [phone] PCP - General Family Medicine - Primary Care 04/08/21 Leonor Parish MD [address] [place] [phone] 05/08/17 documented as of this encounter
--- OUTSIDE RECORDS SUMMARY | 2024-05-13 16:49 | XMS_ITS | Encounter Summary ---
Author Organization [facility] Address [address] [place] [address] Care Team Providers Care Media Services Director Name Role Phone Unknown, Provider Primary Care Provider Leonor Doyle MD Unavailable Isabela Mitchell MD Primary Care Provider [phone] Encounter Details Date Type Department Care Team (Late st Contact Info) Description 03/13/2020 Lab Requisition [facility] Pathology & Laboratory Medicine - [address] [address] Agustina Pena, BAND REAMER MACHINE OPERATOR [address] [place] [phone] Encounter for other general examination Social History Tobacco Use Types Packs/Day Years [...] Priority Date/Time Associated Diagnosis Comments PAP TEST Today 03/12/2020 10:30 EDT Encounter for other general examination HPV DNA DETECTION WITH GENOTYPING, PCR Today 03/12/2020 10:30 EDT Encounter for other general examination documented in this encounter Results * HUMAN PAPILLOMAVIRUS (HPV) DETECTION-HIGH RISK TYPES (03/12/2020 10:30 EDT) HPV other High Risk types, PCR Negative Negative 03/20/2020 15:01 EDT [facility] Comment:No E6 or E7 mRNA is detected from HPV types 16,18,31,33,35,39,45,51,52,56,58,59,66, and 68 by master brewer mediated amplification. Papanicolaou smear specimen (specimen) CERVIX UTERI STRUCTURE / Unknown 03/12/2020 10:30 EDT 03/16/2020 14:56 EDT us Agustina Pena BAND REAMER MACHINE OPERATOR MICROBIOLOGY - GENERAL OR DERABLES Final Result [facility] [address] [place] [address] * PAP TEST (03/12/2020 10:30 EDT) Specimens A. Cervix and/or Endocervix , ThinPrep Imaging System with Manual Evaluation 03/20/2020 15:01 [facility] Specimen Adequacy Satisfactory for Evaluation - transformation zone component present 03/20/2020 15:01 [facility] General Categorization Negative for intraepithelial lesion or malignancy 03/20/2020 15:01 [facility] Attestation . 03/20/2020 15:01 [facility] at 1501 Clinical History See below 03/20/20 20 15:01 [facility] HPV The result for the Human Papillomavirus (HPV) Detection-High Risk Types is Negative. No E6 or E7 mRNA is detected from HPV types 16,18,31,33,35,39 ,45,51,52,56,58,5 9,66, and 68 by master brewer mediated amplification.Gena ting was performed on specimen [id number] and was resulted on 03/20/2020 1457 EDT by AMY, LAB INSTRUMENT RESULTS IN 03/20/2020 15:01 [facility] Performing Lab [facility] 03/20/2020 15:01 T [facility] Scanned Images 03/20/2020 15:01 EDT [facility] Papanicolaou smear specimen (specimen) CERVIX UTERI STRUCTURE / Unknown 03/12/2020 10:30 EDT 03/13/2020 11:44 EDT us Agustina Pena BAND REAMER MACHINE OPERATOR PATHOLOGY ORDERABLES Jacque l Result [facility] [address] [place] [address] documented in this encounter Visit Diagnoses Diagnosis Encounter for other general examination documented in this encounter Care Teams Media Services Director Relationship Specialty Start Date End Date Unknown, Provider, PCP - General 05/08/17 04/07/21 Isabela Mitchell MD [address] [place] [phone] PCP - General Family Medicine - Primary Care 04/08/21 Leonor Parish MD [address] [place] [phone] 05/08/17 documented as of this encounter
--- OUTSIDE RECORDS SUMMARY | 2024-05-13 16:49 | XMS_ITS | Encounter Summary ---
Author Organization [facility] Address [address] [place] [address] Care Team Providers Care Real Estate Consultant Name Role Phone Unavailable Primary Care Provider Unavailabl e Reason for Visit * Reason Onset Date Comments Breast Mass 02/07/2011 Encounter Details Date Type Department Care Team (Late st Contact Info) Description 02/07/2011 Orders Only [facility] Cancer Center Hematology & Oncology - [address] [address] Gunner Venegas MD [address] [place] [address], [address] [place] [id number] Breast mass (Primary Dx) Social History Tobacco Use Types [...] Procedure Name Priority Date/Time Associated Diagnosis Comments [place]NEE DX BILATERAL EMERGENCY 2 BREAST 02/14/2011 11:53 EDT documented in this encounter Results * SHAWNEE DX BILATERAL EMERGENCY 2 BREAST (02/14/2011 11:53 EDT) Anatomical Region Laterality Modality Other 02/14/2011 11:5 3 EDT 02/14/2011 16:33 EDT Narrative 02/14/2011 16:33 [...] appointment in the High-Risk clinic in the [facility] be made. If this patient's calculated lifetime risk of breast cancer is greater than 20%, then according to the [employer] guidelines, annual MRI screening is recommended in addition to mammography. The patient was told the results and recommendations of the study by the sprinkler inspector. The patient will be notified of her/his [...] appointment in the High-Risk clinic in the [facility] be made. If this patient's calculated lifetime risk of breast cancer is greater than 20%, then according to the [employer] guidelines, annual MRI screening is recommended in addition to mammography. The patient was told the results and recommendations of the study by the sprinkler inspector. The patient will be notified of her/his breast imaging results via a lay letter from radiology. Radiology will contact the patient directly regarding any findings which require additional imaging (Category 0) at this time. I have personally reviewed the images and the above interpretation and agree with the findings. us Gunner Venegas MD IMG MAMMOGRAPHY ORDERABLES Jacque saldivar Result documented in this encounter Visit Diagnoses Diagnosis Breast mass- Primary Lump or mass in breast documented in this encounter
--- OUTSIDE RECORDS SUMMARY | 2024-05-13 16:49 | XMS_ITS | Encounter Summary ---
Author Organization [facility] Address [address] [place] [address] Care Team Providers Care Knotter Hand Name Role Phone Unavailable Primary Care Provider Unavailabl e Encounter Details Date Type Department Care Team ([facility] st Contact Info) Description 03/08/2007 Before PRISM Converted Visit (Maple) [facility] - Maple conversion [address] [place] [address] Britt Bowie CFNP Social History Tobacco Use Types Packs/Day Years Used Date Smoking Tobacco: Never Assessed Comments Unknown Sex and Gender Information Value Date Recorded Sex Assigned at Not on file Legal Sex Female 18:40 EST Gender Identity Female 05/01/2021 9:25 EST Sexual Orientation Not on file documented as of this encounter Progress Notes * John Kimbrough Concierge Manager - 04/03/2009 194 EST DIVISION OF SURGICAL ONCOLOGY - BREAST [facility] PROGRESS/FOLLOWUP NOTE - 03/08/2007 PROBLEM Positive family history of breast cancer. SUBJECTIVE Comes in today for routine high-risk screening breast exam. Overall, breast- helton, she continues to do well and has no complaints. She is in the habit of doing self-breast exam. She denies any skin change or dimpling, nipple discharge, any new breast pain or tenderness. Overall systemically she continues to feel well. She reports good energy and good appetite. 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 HORSE BREAKER HISTORY Menarche at age 12. The patient is premenopausal. She is G4, P4. Age at first delivery was 19. She has history of intermittent use of oral contraceptives. FAMILY HISTORYfor a sister with breast cancer at age 37. She had a total mastectomy. She has a paternal grandfather with prostate cancer. Her maternal grandfather had colon cancer at age 65. Her maternal grandmother had leukemia at age 43. Of note, her sister received results of her genetic testing, and she is negative for a genetic mutation. CURRENT MEDICATIONS [facility] Womens Active Vitamins. Update form has been reviewed. OBJECTIVE In general, looks well. BREAST EXAM: There are no palpable cervical, clavicular, or axillary nodes. The patient is examinedin the sitting and supine positions. The breasts are symmetric. There is no dimpling, thickening, nipple change, or discharge. There are no discrete masses palpable either breast. Using the office ultrasound machine the right breast is scanned in its entirety. Noted at the 11:00position is a cluster of three to four small simple cysts. There are no other ultrasound findings noted in the right breast. The left breast is also scanned in its entirety. Noted at the 11:00 position is a simple cyst. There are no other cystic, solid, or complex lesions noted in the left breast. ASSESSMENT Clinically normal breast exam. Bilateral breast cysts. PLAN Bilateral mammogram obtained today has been read as within normal limits. The patient will meet with her HORSE BREAKER provider in the spring. We will plan to recheck here in one year with mammogram at that time. She is encouraged to continue with self-breast exams. She is also asked to call here sooner withany questions, any problems. Signed by ANA Wright 03/12/2007 13:12 ANA Wright - ANA Wright - humza Job ID: [id number] Doc ID: [id number] cc: Leonor Parish MD documented in this encounter Plan of Treatment Not on file documented as of this encounter Visit Diagnoses Not on filedocumented in this encounter
--- OUTSIDE RECORDS SUMMARY | 2024-05-13 16:49 | XMS_ITS | Encounter Summary ---
Author Organization [facility] Address [address] [place] [address] Care Team Providers Care Electronic Equipment Set Up Operator Name Role Phone Leonor Parish MD Primary Care Provider [phone] Unknown, Provider Primary Care Provider Unava ilable Leonor Parish MD Unavailable Encounter Details Date Type Department Care Team (Late st Contact Info) Description 08/28/2009 Historical Results Only [facility] - Main [place] [address] [place] [phone] Isabela Mitchell MD [address] [place] [phone] Social History Tobacco Use Types Packs/Day Years [...] Date/Time Associated Diagnosis Comments PAP TEST Routine 08/28/2009 documented in this encounter Results * PAP TEST (08/28/2009) 08/28/2009 08/29/2009 10: 52 EDT Narrative [facility] - 08/31/2009 15:59 EDT ----- ------- Name: JB TERRY Matheus ? : 77 ?Age/Sex: 43/F ?Unit#: [id number] ? Loc: LAB.OPX ? Status: REG REF ?? Reg Date: 08/28/09 ? Pt.Phone Number: ? ----- ------- Specimen: [id number] ?STATUS: SOUT ?Spec Date:08/28/09 ? Physician Copies: ?Isabela Mitchell MD ?? Tissues: ? Cervical/Endo Pap ? CPT: 48388 ?? Units: ??1 ----- ------- ? CYTOLOGY DIAGNOSIS SPECIMEN ADEQUACY: ?Satisfactory for evaluation. Transformation zone component present. GENERAL CATEGORIZATION: ?Negative for Intraepithelial Lesion or Malignancy DESCRIPTIVE DIAGNOSIS: ? Negative for Intraepithelial Lesion or Malignancy. RECOMMENDATIONS/COMMENTS: ?None. ----- ------- ORDER QUERIES: LMP: 08/12/09- ? N Post ? N ??PREVIOUS ATYPICAL: N BCP/HRT? ?? Rad Rx? N IUD?PAP PLUS HPV?REFLEX TO HR-HPV IF ASCUS ?? REFLEX TO HPV 16/18 IF HPV POS/PAP NEG ?? HPV REGARDLESS?RFLX HPV IF LSIL ?? IF ASCUS DO HPV? Y Signed Tam Morris CT(ASCP) 08/31/09 ? By the signature above, the attending physician certifies that he/she has personally conducted a gross and/or microscopic examination of the described specimens and rendered or confirmed the above diagnosis. Test Performed by [facility], [address] [facility] [address] Global Sourcing Manager: Martha Bennett MD PHD ----- ------- us Isabela Mitchell MD PATHOLOGY ORDERABLES Final Res ult [facility] documented in this encounter Visit Diagnoses Not on filedocumented in this encounter Care Teams Electronic Equipment Set Up Operator Relationship Specialty Start Date End Date Leonor Parish MD [address] [place] [phone] PCP - General 02/13/11 05/07/17 Unknown, Provider, [address] [place] [address] PCP - General 05/08/17 Leonor Parish MD [address] [place] [phone] 05/08/17 documented as of this encounter
--- OUTSIDE RECORDS SUMMARY | 2024-05-13 16:49 | XMS_ITS | Encounter Summary ---
Author Organization [facility] Address [address] [place] [address] Care Team Providers Care Cork Insulator Helper Name Role Phone Leonor Parish MD Unavailable Isabela Mitchell MD Primary Care Provider [phone] Reason for Referral * Radiology Services (Routine/Next Available) - Closed Specialty Diagnoses / Procedures Referred By Nickie alarcon Referred To Contact Radiology Diagnoses Brain mass Procedures MR HEAD W WO CONTRAST Antonio Mejia MD Phone: tel: fax: [facility] Referral ID Status Reason Start Date Expiration Date Visits Re quested Visits Authorized [id number] Closed 05/01/2021 1 1 Reason for Visit * Reason Comments New Patient Visit Brain Mass * Consult (Routine) - Closed Specialty Diagnoses / Procedures Referred By Nickie alarcon Referred To Contact Neurosurgery Diagnoses Brain mass Juarez Huntley DDS Phone: tel: fax: Gumaro Vail MD Phone: tel: fax: Referral ID Status Reason Start Date Expiration Date Visits Re quested Visits Authorized [id number] Closed 1 1 Encounter Details Date Type Department Care Team (Late st Contact Info) Description 05/01/2021 8:30 EST Office Visit [facility] Neurosurgery - Main [place] [address] [place] [address] Antonio Mejia MD [address] [facility], [address] [place] [phone] Brain mass (Primary Dx) Social History Tobacco Use [...] Time Taken Comments Blood Pressure 126/78 05/01/2021 0824 EST Pulse 74 05/01/2021 0824 EST regular Temperature 36.9 ??C (98.5 ??F) 05/01/2021 0824 EST Respiratory Rate 18 05/01/2021 0824 EST Oxygen Saturation 98% 05/01/2021 08 EST Inhaled Oxygen Concentration - - Weight 95.7 kg (211 lb) 05/01/2021 08 EST Height - - Body Mass Index - - documented in this encounter Progress Notes * Antonio Mejia MD - 05/01/2021 0830 EST NEUROSURGERY CONSULTATION NOTE Chief Complaint Patient presents with ??? New Patient Visit Brain Mass No diagnosis found. Requesting Provider: Isabela Mitchell Primary Provider: Isabela Mitchell HPI: Katherine Landeros is a 45-year-old woman here for evaluation of an incidentally discovered left posterior fossa mass. She has had longstanding facial pain which usually occurs in the left side. She has been treated intermittently with Lyrica for this. More recently she had an episode involving the right side of the face which involves predominantly the V2 and V3 segments however also the V1 segment to a lesser degree. She had pain behind and in the right ear as well as up over the top of the head. She described the pain as burning pain which was constant and lasted anywhere between 2 and 15 minutes in duration. She denies any recent weight loss and in fact states she has gained weight likely from being on steroid she thinks. She does endorse night sweats however denies fevers. Past Medical History: Diagnosis Date ??? Arthritis ??? Fibromyalgia No past surgical history on file. Current Outpatient Medications Medication ??? acetaminophen (TYLENOL) 500 mg tablet ??? bisacodyL (DULCOLAX) 10 mg suppository ??? calcium carb/magnesium ox,carb (JHON-MAG ORAL) ??? DOCOSAHEXANOIC ACID/EPA (FISH OIL ORAL) ??? ERGOCALCIFEROL, VITAMIN D2, (VITAMIN D ORAL) ??? Multivitamins with Minerals tablet tablet ??? NAPROXEN ORAL ??? predniSONE (DELTASONE) 20 mg tablet ??? pregabalin (LYRICA) 150 mg capsule ??? senna (SENOKOT) 8.6 mg tablet ??? traMADol (ULTRAM) 50 mg tablet No current facility-administered medications for this visit. Exam: Blood pressure 126/78, pulse 74, temperature 36.9 ??C (98.5 ??F), temperature source Temporal, resp. rate 18, weight 95.7 kg (211 lb), SpO2 98 %. Physical exam today reveals intact cranial nerves. She has intact sensation in the face. She has normal extraocular motility muscles of facial expression. Extremity strength is full. Reflexes are 2+ and symmetric. Imaging: MRI brain performed without contrast March 21, 2021 revealed a left side enhancing mass near the foramen of Luschka the lesion is somewhat difficult to characterize in the T2 weighted imaging and appears to be located dorsal to the lower cranial nerves. 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 This will be completed 2 to 3 months from the initial scan to ensure there is not rapid growth of the mass. Given her night sweats I also would recommend a CT of her chest abdomen and pelvis be performed to rule out a systemic process. I think this lesion does not appear to be consistent with a metastatic lesion however given the concerning symptoms it would be prudent to rule it out. We spoke about her symptoms of face pain as well and that I do not think they are related to the mass. Given that she has had pain on both sides of the face this is more of an atypical facial pain and likely would not be amenable to surgical therapy. However we did discuss to review her MRI in detail once the new study is complete. I spent a total of 45 minutes on the date of this encounter meeting with the patient and reviewing documentation/coordinating care as described in the above note. 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 bisacodyL (DULCOLAX) [address] 10 mg rectally daily. calcium carb/magnesium ox,carb (JHON-MAG ORAL) Take by mouth. Multivitamins with Minerals tablet tablet Take 1 Tablet by mouth daily. senna (SENOKOT) 8.6 mg tablet Take 17.2 mg by mouth 2 times daily. acetaminophen (TYLENOL) 500 mg tablet Take 500 mg by mouth 3 times daily. traMADol (ULTRAM) 50 mg tablet Take 50 mg by mouth 3 times daily as needed for Pain. pregabalin (LYRICA) 150 mg capsule Take 150 mg by mouth 3 times daily. predniSONE (DELTASONE) 20 mg tablet Take 20 mg by mouth 2 times daily. Slow taper added in this encounter Care Teams Cork Insulator Helper Relationship Specialty Start Date End Date Isabela Mitchell MD [address] [place] [address] PCP - General Family Medicine - Primary Care 04/08/21 Leonor Parish MD [address] [place] [phone] 05/08/17 documented as of this encounter
--- OUTSIDE RECORDS SUMMARY | 2024-05-13 16:49 | XMS_ITS | Encounter Summary ---
Author Organization [facility] Address [address] [place] [address] Care Team Providers Care Director Index Name Role Phone Unknown, Provider Primary Care Provider Leonor Doyle MD Unavailable Isabela Mitchell MD Primary Care Provider [phone] Encounter Details Date Type Department Care Team (Late st Contact Info) Description 04/19/2020 Lab Requisition [facility] Pathology & Laboratory Medicine - [address] [id number] Outr Resulting Lab, Provider Social History Tobacco [...] Procedure Name Priority Date/Time Associated Diagnosis Comments T3 FREE Routine 04/18/2020 8:25 EST T3, TOTAL Routine 04/18/2020 8:25 EST documented in this encounter Results * T3 FREE (04/18/2020 8:25 EST) T3, Free 3.4 2.8 - 5.3 pg/mL 04/19/2020 21:45 EST [facility] Blood VENOUS BLOOD / Unknown 04/18/2020 8:25 EST 04/19/2020 21:15 EST us Provider Outr Resulting Lab CHEMISTRY & BLOOD GA S ORDERABLES Final Result Performing Organization Address City/[facility]/ZIP Co de Phone Number [facility] [address] [place] [address] * T3, TOTAL (04/18/2020 8:25 EST) T3, Total 127 97 - 169 ng/dL 04/19/2020 21:59 EST [facility] Blood VENOUS BLOOD / Unknown 04/18/2020 8:25 EST 04/19/2020 21:15 EST us Provider Outr Resulting Lab CHEMISTRY & BLOOD GA S ORDERABLES Final Result Performing Organization Address City/[facility] Co de Phone Number [facility] [address] [place] [address] documented in this encounter Visit Diagnoses Not on filedocumented in this encounter Care Teams Director Index Relationship Specialty Start Date End Date Unknown, Pedro, PCP - General 05/08/17 04/07/21 Isabela Mitchell MD [address] [place] [phone] PCP - General Family Medicine - Primary Care 04/08/21 Leonor Parish MD [address] [place] [phone] 05/08/17 documented as of this encounter
--- OUTSIDE RECORDS SUMMARY | 2024-05-13 16:50 | XMS_ITS | Encounter Summary ---
Author Organization [facility] [place] [address] Care Team Providers Care Carpet Cutter Name Role Phone Isabela Mitchell MD Primary Care Provider [phone] Encounter Details Date Type Department Care Team (Late st Contact Info) Description 04/11/2022 Telephone [place] [phone] Samreen Landeros Social History Tobacco Use Types Packs/Day Years Used Date Smoking Tobacco: Never Smokeless Tobacco: Never Alcohol Use Standard Drinks/Week Comments Yes 0 (1 standard drink = 0.6 oz pur e alcohol) maybe 1x year Sex and Gender Information Value Date Recorded Sex Assigned at Not on file Gender Identity Not on file Sexual Orientation Not on file documented as of this encounter Miscellaneous Notes * Telephone Encounter - Philip Boston MD - 04/11/2022 5:40 PM EST Call returned to Dr Ramirez. Capsule was again retained in small bowel but reached more distal location (likely reached terminalileum). Given scattered erosions which were also reported on Colonoscopy by Dr Ramirez likely that capsule reached the distal ileum. Previous retained capsule passed (not seen on KUB) so severe stricture is unlikely. Possible that tramadol is causing some bowel motility delay. Low yield/benefit of repeating capsulewhich has already confirmed presence of patchy small erosions in the distal small bowel consistent with colonoscopy results. * Telephone Encounter - Samreen Landeros - 04/11/2022 4:16 PM EST Jacki called from office. would like to talk to about the video capsule he did for the pt on 03/27/22.Please call [phone] ext [phone]. documented in this encounter Plan of Treatment Not on file documented as of this encounter Visit Diagnoses Not on filedocumented in this encounter Care Teams Carpet Cutter Relationship Specialty Start Date End Date Isabela Mitchell MD [address] [place] [id number] PCP - General Family Medicine 06/27/20 documented as of this encounter
--- OUTSIDE RECORDS SUMMARY | 2024-05-13 16:50 | XMS_ITS | Clinical Summary ---
Author Organization [facility] Address [facility] [place] [address] Care Team Providers Care Rattlesnake Farmer Name Role Phone Isabela Mitchell MD Primary Care Provider [phone] Allergies Active Allergy Reactions Criticality Noted Date Comments Codeine Phosphate Corticosteroids (Glucocorticoids) 08/06/2021 Hydrocodone-Acetaminophen Morphine Sulfate Opioids - Morphine Analogues Nausea And Vomiting High 03/07/2011 Peanut Anxiety,Itching,Pal pitations,Shortness Of Breath High 02/12/2018 Other reaction(s): Flushing, Swelling Penicillins High 03/07/2011 Stiff spine, hard of breathing. Stiff spine, hard of breathing. Stiff spine, hard of breathing. Medications Medication Sig Dispensed Refills Start Date End Date Status CIS Free Text Med - Multiple Vitamin 05/15/2010 Active cholecalciferol, Vitamin D3, 400 unit tablet Take 400 Units by mouth daily. Active albuteroL 90 mcg/actuation HFA Aerosol Inhaler INHALE 1 TO 2 PUFFS BY MOUTH EVERY 4 TO 6 HOURS NEEDED 12/22/2020 Active Dai Hernadez [facility] Spacer USE DIRECTED WITH INHALER 12/22/2020 Active EPINEPHrine 0.3 mg/0.3 mL Auto-Injector Inject 1 kit into the muscle once as needed. Inject 0.3 mL IM once as needed for allergic reaction (Throat tight, difficulty breathing). Call 911 as directed. Active acetaminophen (Tylenol) 500 mg Tablet Take 1,000 mg by mouth as needed. Active cyclobenzaprine (Flexeril) 10 mg Tablet Take 10 mg by mouth Once daily as needed. 12/25/2021 Active Calcium Carb-Magnesium Cmb #10 200 mg calcium- 100 mg Tablet, Chewable Take by mouth. Active traMADoL (Ultram) 50 mg Tablet Take 50 mg by mouth Three times daily as needed. Active pregabalin (LYRICA) 150 mg Capsule Take 150 mg by mouth Three times a day. Active b complex vitamins Tablet Take 1 tablet by mouth daily. Active SUMATRIPTAN SUCCINATE ORAL Take by mouth. Active Active Problems Problem Noted Date Diagnosed Date Brain tumor (benign) 12/25/2021 Fibromyalgia 12/25/2021 CIS - Raynaud's Resolved Problems Problem Noted Date Diagnosed Date Resolved Date Other chronic pain 02/12/2018 2 Immunizations Name Administration Dates Next Due Hepatitis A Adult (Havrix, Vaqta) 07/21/2022, Tdap (Adacel, Boostrix) 02/12/2018,07/30/2006 Typhoid Live, Oral 02/12/2018 Social History Tobacco Use Types Packs/Day Years Used Date Smoking Tobacco: Never Smokeless Tobacco: Never Alcohol Use Standard Drinks/Week Comments Yes 0 (1 standard drink = 0.6 oz pur e alcohol) maybe 1x year Sex and Gender Information Value Date Recorded Sex Assigned at Not on file Gender Identity Not on file Sexual Orientation Not on file Last Filed Vital Signs Vital Sign Reading Time Taken Comments Blood Pressure 97/52 03/27/2022 9:00 AM EDT Pulse 68 03/27/2022 8:40 AM EDT Temperature 37 ??C (98.6 ??F) 08/06/2021 9:12 AM EDT Respiratory Rate 18 03/27/2022 9:00 AM EDT Oxygen Saturation 100% 03/27/2022 9:00 AM EDT Inhaled Oxygen Concentration - - Weight 97.5 kg (215 lb) 03/27/2022 7:11 AM EDT Height 170.2 cm (5' 7) 03/27/2022 7:11 AM EDT Body Mass Index 33.67 03/27/2022 7:11 AM EDT Plan of Treatment Health Maintenance Due Date Last Done Comments CT Colonography 1976 Colonoscopy 1976 Colorectal Cancer Screening 1976 FIT DNA 1976 FIT 1976 Sigmoidoscopy (10 year) with FIT yearly 1976 Sigmoidoscopy 1976 HIV screen 1994 Hepatitis C Screening 1994 Lipid Screening 1994 HPV test 2006 PAP Smear 2006 Breast Cancer Share Decision Needed 2016 Breast Cancer screening 2016 Covid-19 Vaccine ( season) 2024 Influenza (Flu) vaccine (1 o f 1 - Influenza standard series) 01/24/2024 Diabetes Screening (HgbA1C or Glucose) 08/06/2024 Tetanus/Diphtheria/Pertussis Vaccines (3 - Td or Tdap) 02/13/2028 02/12/2018, 07/30/2006 Procedures Procedure Name Priority Date/Time Associated Diagnosis Comments COMPREHENSIVE METABOLIC PANEL STAT 08/06/2021 6:24 AM EDT from Last 3 Months or Most Recently Relevant to Health Maintenance Results * (ABNORMAL) Comprehensive metabolic panel (non-fasting) (08/06/2021 6:24 AM EDT) Glucose 98 65 - 199 mg/dL [facility] Comment:Diabetes: >=200 mg/d L plus symptoms Blood Urea Nitrogen 12 8 - 18 mg/dL [facility] Creatinine 0.66(L) 0.70 - 1.20 mg/dL [facility] Sodium 139 135 - 145 mmol/L [facility] Potassium 4.3 3.5 - 5.0 mmol/L [facility] Comment: Please note: ??Patients with WBC >100,000 may have falsely elevated Potassium levels. ??For accurate Potassium quantification in these patients send serum separator tube (gold top) for subsequent determinations. ??Contact the Clinical Chemistry Laboratory if there are any questions. Chloride 105 98 - 107 mmol/L [facility] Carbon Dioxide 22 22 - 31 mmol/L [facility] Anion Gap 12 5 - 15 mmol/L [facility] Calcium 9.0 8.5 - 10.5 mg/dL [facility] Protein, Total 6.5 6.1 - 8.0 g/dL [facility] Albumin 4.0 3.2 - 5.2 g/dL [facility] Aspartate Aminotransferase Not Perf 0 - 30 [facility] Comment: Unable to quantitate due to sample hemolysis. ??Sample redraw suggested. Called by: NORMA, Read back by: Kellie Garza, Date/Time:08/06/21 07:44. Alanine Aminotransferase 11 0 - 30 unit/L [facility] Alkaline Phosphatase 40 35 - 105 unit/L [facility] Bilirubin, Total 0.2 0.2 - 1.3 mg/dL [facility] Est Glomerular Filtration Rate 107 >=60 mL/min/1. 73 m?? [facility] Comment: This patient? s estimated glomerular filtration rate (eGFR) is between 107 mL/min/1.73 m2 (patients with less muscle mass) and 125 mL/min/1.73 m2 (patients with more muscle mass) as determined by the CKD-EPI equation. Assessment of eGFR is not appropriate when creatinine concentrations are rapidly changing. For clinical decisions where creatinine clearance will affect therapy, a 24-hour urine creatinine clearance may be advised. Assignment of CKD stage 1 - 5 for patients with an eGFR near the transition point between stages may be based on clinical assessment of muscle mass and symptoms in addition to eGFR. Blood 08/06/2021 6:24 AM EDT 08/06/2021 6:38 AM EDT Narrative Resulting Agency Comment Spec In Lab Kiara Barrett MD CHEMISTRY ORDERABLE S [facility] [place] [address] from Last 3 Months or Most Recently Relevant to Health Maintenance Care Teams Rattlesnake Farmer Relationship Specialty Start Date End Date Isabela Mitchell MD [address] [place] [address] PCP - General Family Medicine 06/27/20
--- OUTSIDE RECORDS SUMMARY | 2024-05-13 16:50 | XMS_ITS | Encounter Summary ---
Author Organization [facility] Address [facility] [place] [address] Care Team Providers Care X Ray Physician Name Role Phone Isabela Mitchell MD Primary Care Provider [phone] Encounter Details Date Type Department Care Team (Late st Contact Info) Description 01/17/2022 Orders [place] [address] Camelia Ramsay MD [facility] [place] [address] of the abdomen Social History Tobacco Use Types Packs/Day Years Used Date Smoking Tobacco: Never Smokeless Tobacco: Never Sex and Gender Information Value Date Recorded Sex Assigned at Not on file Gender Identity Not on file Sexual Orientation Not on file documented as of this encounter Plan of Treatment Scheduled Orders Name Type Priority Associated Diagnoses Orde r Schedule ENDOSCOPY CASE REQUEST: EGD, UPPER GI ENDOSCOPY, VIDEO CAPSULE ENDOSCOPY Procedures Routine Abnormal CT of the abdomen Ordered: 01/17/2022 documented as of this encounter Visit Diagnoses Diagnosis Abnormal CT of the abdomen Nonspecific (abnormal) findings on radiological and other examination of abdominal area, including retroperitoneum documented in this encounter Care Teams X Ray Physician Relationship Specialty Start Date End Date Isabela Mitchell MD [address] [place] [address] PCP - General Family Medicine 06/27/20 documented as of this encounter
--- OUTSIDE RECORDS SUMMARY | 2024-05-13 16:50 | XMS_ITS | Encounter Summary ---
Author Organization [facility] Address [facility] [place] [address] Care Team Providers Care Outpatient Receptionist Name Role Phone Leonor Parish MD Primary Care Provider [phone] Encounter Details Date Type Department Care Team (Late st Contact Info) Description 12/31/2017 External Results Infectious Disease at [facility] [place] [address] Angel Luis Morocho MD [facility] [place] [address] Social History Tobacco Use Types Packs/Day Years Used Date Smoking Tobacco: Never Sex and Gender Information Value Date Recorded Sex Assigned at Not on file Gender Identity Not on file Sexual Orientation Not on file documented as of this encounter Plan of Treatment Not on file documented as of this encounter Procedures Procedure Name Priority Date/Time Associated Diagnosis Comments MEASLES (RUBEOLA) ANTIBODY, IGG Routine 11/22/2009 documented in this encounter Results * Measles (Rubeola) Antibody, IgG (11/22/2009) Rubeola Antibody IgG positive Mumps Antibody IgG positive Hepatitis B Surface Antibody positive Rubella Antibody IgG positive Blood specimen (specimen) 11/22/2009 Historical Provider IMMUNOLOGY ORDERA BLES documented in this encounter Visit Diagnoses Not on filedocumented in this encounter Care Teams Outpatient Receptionist Relationship Specialty Start Date End Date Leonor Parish MD [address] [place] [address] PCP - General 05/15/11 06/26/20 documented as of this encounter
--- OUTSIDE RECORDS SUMMARY | 2024-05-13 16:50 | XMS_ITS | Encounter Summary ---
Author Organization [facility] [place] [address] Care Team Providers Care Campaign Associate Name Role Phone Isabela Mitchell MD Primary Care Provider [phone] Reason for Visit * Consultation (Priority 3) - Closed Specialty Diagnoses / Procedures Referred By Contac t Referred To Contact Dermatology Diagnoses Skin lesion Skin lesion of face Sandra Gautam APRN [address] [place] [address] [facility] Dermatology [address] [place] [address] Referral ID Status Reason Start Date Expiration Date V isits Requested Visits Authorized [id number] Closed Consult, Test & Treat PCP Updated and/or Approved 10/30/2022 10/30/2023 6 6 Encounter Details Date Type Department Care Team (Late st Contact Info) Description 02/19/2023 9:00 AM EDT Office Visit Dermatology at [facility] [address] [place] [id number] Magdy Fine MD [address] [place] [address] [address] [place] [address] Dermatofibroma Social History Tobacco Use Types Packs/Day Years [...] as of this encounter Progress Notes * Magdy Fine MD - 02/19/2023 9:00 AM EDT Images from the original note were not included. DEPARTMENT OF DERMATOLOGY Medical Dermatology Clinic Note Provider: Magdy Fine MD Patient's preferred name Lenka Preferred contact method for results [x]Phone []myD-H []Letter Detailed phone message OK? Yes Are there any other people with whom we may discuss your care? 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 Patient is referred to the clinic at the request of Sandra Gautam for the following spot of concern: - Spot on the right lower leg. Review of Systems: General: Feeling well. Skin: No other skin concerns. Medications: Reviewed in eD-H Allergies: Reviewed in eD-H Skin Examination: Focused skin examination of the right lateral calf was normal with the exception of the findings below. Assessment/Plan #. Dermatofibroma - Firm papule, centrally raised and sclerotic, with peripheral hyperpigmentation on the right leg. - Discussed that these are benign fibrous (scar-like) lesions. No treatment necessary. RTC: Next available for FSE []Note routed to legal secretary []Recall placed in scheduling system [x]Appointment scheduled at checkout Scribe attestation: Ramsey John [facility] has performed the documentation for this encounter in the presence of and acting as a scribe for Magdy Fine MD. I performed the above scribed service and agree with the accuracy of the documentation in this encounter. Reviewed and signed by: Magdy Fine MD Dermatology [facility] Patient seen and evaluated with staff security software engineer: Alexandra Madison MD Department of Dermatology [facility] * Alexandra Madison MD - 02/19/2023 9:00 AM EDT I directly supervised the Dermatology resident during this office visit. The resident presented thehistory and physical exam to me. I then saw and examined this patient with the resident. We reviewed the history and pertinent details and I confirmed the physical findings. I agree with the details of the history and physical exam as documented in the resident's note. ALEXANDRA MADISON MD Staff Physician documented in this encounter Plan of Treatment Scheduled Referrals Name Type Priority Associated Diagnoses Order Schedule Referral to Dermatology Outpatient Referral Routine Skin lesion Skin lesion of face Ordered: 10/30/2022 documented as of this encounter Visit Diagnoses Diagnosis Dermatofibroma Benign neoplasm of skin, site unspecified documented in this encounter Care Teams Campaign Associate Relationship Specialty Start Date End Date Isabela Mitchell MD [address] [place] [id number] PCP - General Family Medicine 06/27/20 documented as of this encounter
--- OUTSIDE RECORDS SUMMARY | 2024-05-13 16:50 | XMS_ITS | Encounter Summary ---
Author Organization [facility] Address [facility] [place] [address] Care Team Providers Care Retread Builder Name Role Phone Isabela Mitchell MD Primary Care Provider Encounter Details Date Type Department Care Team (Late st Contact Info) Description 05/15/2010 12:58 PM EST - 05/15/2010 11:59 PM EST Hospital [place] [address] Social History Tobacco Use Types Packs/Day Years Used Date Smoking Tobacco: Never Assessed Sex and Gender Information Value Date Recorded Sex Assigned at Not on file Gender Identity Not on file Sexual Orientation Not on file documented as of this encounter Medications at Time of Discharge Medication Sig Dispensed Refills Start Date End Date CIS Free Text Med - Multiple Vitamin 05/15/2010 naproxen (NAPROSYN) 500 mg tablet 500 MG = 1 Tablet(s), PO, Twice daily with food 05/15/2010 02/21/2011 documented as of this encounter Plan of Treatment Not on file documented as of this encounter Visit Diagnoses Not on filedocumented in this encounter Care Teams Retread Builder Relationship Specialty Start Date End Date Isabela Mitchell MD [address] [place] [address] PCP - General 04/16/10 05/14/11 documented as of this encounter
--- OUTSIDE RECORDS SUMMARY | 2024-05-13 16:50 | XMS_ITS | Encounter Summary ---
Author Organization [facility] [place] [address] Care Team Providers Care Fingerprinter Name Role Phone Isabela Mitchell MD Primary Care Provider [phone] Reason for Referral * Consultation (Priority 3) - Closed Specialty Diagnoses / Procedures Referred By Contac t Referred To Contact Dermatology Diagnoses Skin lesion Skin lesion of face Sandra Gautam APRN [address] [place] [address] [facility] Dermatology [address] [place] [address] Referral ID Status Reason Start Date Expiration Date V isits Requested Visits Authorized [id number] Closed Consult, Test & Treat PCP Updated and/or Approved 10/30/2022 10/30/2023 6 6 Encounter Details Date Type Department Care Team (Latest Contact Info) Description 10/30/2022 Transcribe Orders eDH Incoming Referrals [phone] Sandra Gautam APRN [address] [place], [place] [id number] Skin lesion; Skin lesion of face Social History Tobacco Use Types Packs/Day Years [...] of this encounter Plan of Treatment Scheduled Referrals Name Type Priority Associated Diagnoses Order Schedule Referral to Dermatology Outpatient Referral Routine Skin lesion Skin lesion of face Ordered: 10/30/2022 documented as of this encounter Visit Diagnoses Diagnosis Skin lesion Unspecified disorder of skin and subcutaneous tissue Skin lesion of face Unspecified disorder of skin and subcutaneous tissue documented in this encounter Care Teams Fingerprinter Relationship Specialty Start Date End Date Isabela Mitchell MD [address] [place] [address] PCP - General Family Medicine 06/27/20 documented as of this encounter
--- OUTSIDE RECORDS SUMMARY | 2024-05-13 16:50 | XMS_ITS | Encounter Summary ---
Author Organization [facility] Address [facility] [place] [address] Care Team Providers Care Transition Teacher Name Role Phone Isabela Mitchell MD Primary Care Provider [phone] Reason for Visit * Auth/Cert Specialty Diagnoses / Procedures Referred By Nickie t Referred To Contact Diagnoses 46F with abdominal pain and colonoscopy showing scattered apthous ulcers in TI, biopsies showing acute ileitis, CT AP with thickning of distal small bowel, primary GI provider requesting EGD placement of VCE for further evaluation. Procedures PRG GI IMAGING INTRALUMINAL ESOPHAGUS-ILEUM W/I&R PRO UPPER GI ENDOSCOPY, DIAGNOSTIC VIDEO CAPSULE ENDOSCOPY EGD, UPPER GI ENDOSCOPY Armani Hancock MD [facility] [place] [address] [facility] Referral ID Status Reason Start Date Expiration Date Visits Re quested Visits Authorized [id number] 1 1 Encounter Details Date Type Department Care Team (Late st Contact Info) Description 03/27/2022 6:40 AM EDT - 03/27/2022 9:24 AM EDT Hospital Encounter [place] [address] Philip Boston MD [facility] [place] [address] Discharge Disposition: Home Social History Tobacco Use Types Packs/Day Years [...] Pulse 68 03/27/2022 8:40 AM EDT Temperature - - Respiratory Rate 18 03/27/2022 9:00 AM EDT Oxygen Saturation 100% 03/27/2022 9:00 AM EDT Inhaled Oxygen Concentration - - Weight 97.5 kg (215 lb) 03/27/2022 7:11 AM EDT Height 170.2 cm (5' 7) 03/27/2022 7:11 AM EDT Body Mass Index 33.67 03/27/2022 7:11 AM EDT documented in this encounter Discharge Instructions * Discharge Instructions* Larry Mason, RN - 03/27/2022 8:36 AM EDT Upper GI Endoscopy: What to Expect at Home Your Recovery You will be able to go home after your doctor or nurse checks to make sure you are not having any problems. You may have to stay overnight if you had treatment during the test. You may have a sore throat fora day or two after the test. This care sheet gives you a general idea about what to expect after the test. How can you care for yourself at home? Activity Rest when you feel tired. You can do your normal activities when it feels okay to do so. Diet Follow your doctor's directions for eating. Unless your doctor has told you not to, drink plenty of fluids. This helps to replace the fluids that were lost during the prep. Do not drink alcohol. Medicines Your doctor will tell you if and when you can restart your medicines. He or she will also give you instructions about taking any new medicines. If you take blood thinners, such as warfarin (Coumadin), clopidogrel (Plavix), or aspirin, be sure to talk to your doctor. He or she will tell you if and when to start taking those medicines again. Make sure that you understand exactly what your doctor wants you to do. If polyps were removed or a biopsy was done during the test, your doctor may tell you not to take aspirin or other anti-inflammatory medicines for a few days. These include ibuprofen (Advil, Motrin) and naproxen (Aleve). If you have a sore throat the day after the procedure, use an nupy-etv-jdjlgyl spray to numb your throat. Sucking on throat lozenges and gargling with warm salt water may also help relieve your symptoms. Other instructions For your safety, do not drive or operate machinery until the medicine wears off and you can think clearly. Your doctor may tell you not to drive or operate machinery until the day after your test. Do not sign legal documents or make major decisions until the medicine wears off and you can think clearly. The anesthesia can make it hard for you to fully understand what you are agreeing to. Additional Information for Sedation Patients For patients who received sedation: You may have received medications before and/or during your procedure which effects your judgement and reaction time. Do not drive, operate machinery, drink alcoholic beverages or make important decisions for 24 hours. Be careful on stairs as you may be unsteady on your feet. You may eat a regular diet as tolerated. Do not smoke if you are alone. IV site: Slight redness or tenderness is normal, you can use a warm compress if you would like. If tenderness and/or redness increase or if foul drainage occurs, please contact your Doctor. Please call [phone] before 8pm Mon-Fri with problems, questions or concerns. If you call after 8pm or on weekends, call the Hospital at [phone] and ask to speak to the Profile Stitching Machine Operator metal bonding crib attendant and the continuous absorption process operator will contact that person for you. When should you call for help? Call [phone] anytime you think you may need emergency care. For example, call if: You passed out (lost consciousness). You pass maroon or bloody stools. You have trouble breathing. Call your doctor now or seek immediate medical care if: You have pain that does not get better after you take pain medicine. You are sick to your stomach or cannot drink fluids. You have new or worse belly pain. You have blood in your stools. You have a fever. You cannot pass stools or gas. Watch closely for changes in your health, and be sure to contact your doctor if you have any problems. Where can you learn more? [facility] View your After Visit Summary and more online at [email or web address] If you would like to provide feedback about your hospital experience, please call the Office of Patient and Family Relations at . If you have received this After Visit Summary in error, please immediately return it in person to the department, or notify the -H Privacy Office by calling toll free at between the hours of 8AM and 5PM to arrange for our retrieval of the documents at no cost to you. Content Version: 12.2 ?? 3990-2985 [employer]. Care instructions adapted under license by [facility]. If you have questions about a medical condition or this instruction, always ask your healthcare professional. [employer] disclaims any warranty or liability for your use of this information. documented in this encounter Medications at Time of Discharge Medication Sig Dispensed Refills Start Date End Date cyclobenzaprine (Flexeril) 10 mg Tablet Take 10 mg by mouth Once daily as needed. 12/25/2021 acetaminophen (Tylenol) 500 mg Tablet Take 1,000 mg by mouth as needed. cholecalciferol, Vitamin D3, 400 unit tablet Take 400 Units by mouth daily. albuteroL 90 mcg/actuation HFA Aerosol Inhaler INHALE 1 TO 2 PUFFS BY MOUTH EVERY 4 TO 6 HOURS NEEDED 12/22/2020 Dai Hernadez [facility] Spacer USE DIRECTED WITH INHALER 12/22/2020 EPINEPHrine 0.3 mg/0.3 mL Auto-Injector Inject 1 kit into the muscle once as needed. Inject 0.3 mL IM once as needed for allergic reaction (Throat tight, difficulty breathing). Call 911 as directed. CIS Free Text Med - Multiple Vitamin 05/15/2010 pregabalin (Lyrica) 75 mg Capsule 100 mg. 12/22/2020 07/21/2022 cetirizine (ZyrTEC) 10 mg Tablet Take 1 tablet by mouth daily. 90 tablet 3 12/27/2020 07/21/2022 OMEGA-3 FATTY ACIDS (FISH OIL CONCENTRATE ORAL) Take by mouth. 07/21/2022 naproxen (NAPROSYN) 500 mg tabletIndications:Napoleon dromalacia of patella Take 1 tablet by mouth 2 times daily (with meals). 180 tablet 2 05/15/2011 07/21/2022 documented as of this encounter H&P Notes * Stephen Jackson APRN - 03/27/2022 7:31 AM EDT Patient Name: Lenka Landeros Patient Age: 46 y.o. Birthdate: 1975 Admit date: 03/27/2022 Attending Physician: Philip Boston MD Gastroenterology and Hepatology Pre-Procedure History and Physical Exam Procedure: EGD: Capsule endoscopy: Indication: Abdominal pain, bloating, colonoscopy with aphthous ulcers in TI, CT with thickening ofsmall bowel. Placement of VCE Patient Active Problem List Diagnosis Code ??? CIS - Raynaud's ??? Brain tumor (benign) D33.2 ??? Fibromyalgia M79.7 EXAM: HEENT: Airway examined, oropharynx clear Mallampati Score: II (soft palate, uvula, fauces visible) LUNGS: Clear to auscultation HEART: Regular rate and rhythm, normal S1, S2 ABDOMEN: Normal bowel sounds, soft, non distended, tenderness to palpation epigastric area A/P Proceed with the planned endoscopic procedure. ASA 2 - Patient with mild systemic disease with no functional limitations Sedation Plan: moderate (conscious sedation) Risks and benefits of the procedure explained to the patient. Consent signed. Stephen Jackson APRN Section of Gastroenterology [place] [address] documented in this encounter Plan of Treatment Not on file documented as of this encounter Procedures Procedure Name Priority Date/Time Associated Diagnosis Comments Upper GI Endoscopy, Diagnostic (80563) 03/27/2022 8:[address] of the abdomen Gi Imaging Intraluminal Esophagus-Ileum W/I&R (03617) 03/27/2022 8:[address] of the abdomen VIDEO CAPSULE ENDOSCOPY Routine 03/27/2022 8:00 AM EDT UPPER GI ENDOSCOPY Routine 03/27/2022 7: 28 AM EDT documented in this encounter Results * VIDEO CAPSULE ENDOSCOPY (03/27/2022 8:00 AM EDT) Pathologist [facility] VIDEO CAPSULE ENDOSCOPY [facility] Endoscopy Procedure Date: 03/27/2022 8:00 AM ? Patient Name: Lenka Landeros ? N: [id number] ? Date of : 1975 ? Age: 46 ? Order #: [id number] ? Instrument Name: ? Procedure: ? Video capsule endoscopy Indications: ? Unexplained generalized abdominal ? distress/pain, Abnormal abdominal CT Patient Profile: ? This is a 46 year old female with ? history of abdominal pain and ? abnormal CT. Previous VCE was ? retained in stomach over 6 hours ? and small bowel images incomplete Providers: ? Philip Boston MD, Devyn Gee ? , RN, Norma Mcnair Referring MD: ?Isabela Mitchell MD Requesting Provider: ?? Jose Ramirez MD Medicines: ? See the other procedure note for ? documentation of the administered ? medications, None for Capsule Complications: ? Retained capsule enteroscope in the ? distal ileum. Procedure: ? Pre-Anesthesia Assessment: ? - Pre-Anesthesia Assessment: See ? upper Endoscopy and Colonoscopy ? reports from the same day for ? details of pre-procedure process ? and medications given. Prior to the ? procedure, a brief History was ? performed and patient medications ? and allergies were reviewed. The ? patient is competent. The risks and ? benefits of the procedure were ? discussed with the patient, ? specifically retained capsule or ? obstruction requiring surgery for ? retrieval. All questions were ? answered and informed consent was ? obtained. Patient identification ? and proposed procedure were ? verified by the physician, nurse ? and commercial kitchen service technician in the pre-procedure ? area and the Endoscopy suite. ? Mental Status Examination: normal. ? Prophylactic Antibiotics: The ? patient does not require ? prophylactic antibiotics. Prior ? Anticoagulants: The patient has ? taken no previous anticoagulant or ? antiplatelet agents. After ? reviewing the risks and benefits, ? the patient was deemed in ? satisfactory condition to undergo ? the procedure. The capsule was ? deployed endoscopically. No ? anesthesia was required for the ? capsule endoscopy however please ? refer to the prior upper endoscopy ? reports for additional details. ? The Sensor Array was applied to the ? patient's abdomen with adhesive ? pads and connected to the Data ? Recorder around the waist. The Data ? Recorder was checked to ensure ? green light was flashing. This was ? accomplished without difficulty. ? After completion of upper ? endoscopy, the patient was then ? given instructions for eating and ? drinking and was instructed to ? periodically monitor the Data ? Recorder throughout the day to ? insure proper transmission. ? Approximately eight hours later the ? patient returned for removal of the ? Sensor Array. The video capsule ? endoscopy was accomplished without ? difficulty. The patient tolerated ? the procedure well. ? Findings: ? The video capsule had previously been placed into the ? duodenal bulb endoscopically, so no images from the ? esophagus or stomach are available. ? On review of the recorded study, it was determined ? that the study lasted 7-hours 59-minutes 56-seconds ? (total recording time). The capsule enteroscope did ? not reach the cecum. ? The first duodenal image was captured at 0-hours ? 4-minutes and 0-seconds. The small bowel imaging time ? is 7-hours 56-minutes. ? The duodenum was normal. ? The jejunum was normal. ? Multiple scattered erosions and diminutive aphthous ? ulcers without bleeding were found in the ileum ? (probable distal ileum and terminal ileum). The ? capsule is retained in the distal ileum or terminal ? ileum at the conclusion of the study. ? Moderate Sedation: ? Not applicable, no sedation required for Capsule (See ? EGD report for additional details) Impression: ?- Normal duodenum. ? - Normal jejunum. ? - Scattered diminutive Ileal ? erosions and aphthous ulcers. ? Consider NSAID enteritis vs mild ? Crohn's disease. ? - The complete results of this ? study (for the same date as above) ? are available in the video capsule ? equipment database, and these ? results were personally reviewed by ? me. Recommendation: ?- Return to referring physician (Dr ? Ashley). ? - Consider direct visualization of ? the terminal ileum. ? - Capsule was retained in the ? distal ileum. Recommend Abdominal ? Xray to ensure passage of the ? capsule in 1-2 weeks. Previous ? video capsule passed without ? difficulty so retained capsule is ? unlikely. ? - Avoid NSAIDs including ibuprofen ? (Advil/Motrin) and naproxen (Aleve) ? as well as Mobic (meloxicam) and ? Diclofenac. ? Attending Participation: ? I personally performed the entire procedure. ? Dr. Zhao Boston ___ Philip Boston MD 04/05/2022 1:45:09 PM Number of Addenda: 0 Note Initiated On: 03/27/2022 8:44 AM PROVATION 03/27/2022 8:00 AM EDT Isabela Mitchell MD GENERAL SURGICAL ORD ERABLES PROVATION * UPPER GI ENDOSCOPY (03/27/2022 7:28 AM EDT) UPPER GI ENDOSCOPY [facility] Endoscopy Procedure Date: 03/27/2022 7:28 AM ? Patient Name: Lenka Landeros ? Date of : 1975 ? Age: 46 ? Order #: [id number] ? Instrument Name: [id number] ? Procedure: ? Upper GI endoscopy Indications: ? Epigastric abdominal pain, ? Abdominal pain in the right upper ? quadrant Patient Profile: ? This is a 46 year old female with ? RUQ pain and abnormal CT. Previous ? capsule (swallowed) retained in ? stomach with incomplete evaluation ? of the small bowel. Providers: ? Philip Boston MD, Devyn Solano. ? , RN, Norma Mcnair Referring MD: ?Isabela Mitchell MD Requesting Provider: ?? Jose Ramirez MD Medicines: ? Midazolam 5 mg IV, Fentanyl 50 ? micrograms IV, Benzocaine spray, ? Diphenhydramine 50 mg IV, ? Ondansetron 4 mg IV Complications: ? No immediate complications. Procedure: ? Pre-Anesthesia Assessment: ? - Prior to the procedure, a History ? and Physical was performed, and ? patient medications and allergies ? were reviewed. The patient's ? tolerance of previous anesthesia ? was also reviewed. The risks and ? benefits of the procedure and the ? sedation options and risks were ? discussed with the patient. All ? questions were answered, and ? informed consent was obtained. ? Prior Anticoagulants: The patient ? has taken no anticoagulant or ? antiplatelet agents. ASA Grade ? Assessment: II - A patient with ? mild systemic disease. After ? reviewing the risks and benefits, ? the patient was deemed in ? satisfactory condition to undergo ? the procedure. ? The procedure, indications, ? benefits, risks and alternatives ? were explained to the patient. ? Specifically discussed were ? potential complications including, ? but not limited to, bleeding, ? perforation, infection, missing a ? cancer, and adverse medication ? reactions. The Endoscope was ? introduced through the mouth, and ? advanced to the third part of ? duodenum The upper GI endoscopy was ? accomplished without difficulty. ? The patient tolerated the procedure ? well. ? Findings: ? The examined esophagus was normal. ? The Z-line was regular and was found 36 cm from the ? incisors. ? A medium-sized sliding hiatal hernia was found. ? Difficult to determine exact measurements due to ? sliding and variability. ? The stomach was otherwise normal including ? retroflexed views. ? The examined duodenum was normal. ? Using the endoscope, the video capsule enteroscope ? was advanced into the duodenal bulb and deployed. ? The deployment device was removed and the stomach and ? esophagus were examined. Capsule remained in duodenum. ? Moderate Sedation: ? Moderate (conscious) sedation was administered by the ? endoscopy nurse and supervised by the endoscopist. ? The patient's oxygen saturation, heart rate, blood ? pressure and response to care were monitored. ? I was present during the intraservice time as ? documented by the sedation RN. ? IVCS with midazolam and fentanyl (previous ? intolerance of Narcotics with severe nausea/vomiting) ? was ineffective and additional medication ? (diphenhydramine) was required for completion of the ? procedure. Impression: ?- Normal esophagus. ? - Z-line regular, 36 cm from the ? incisors. ? - Medium-sized sliding hiatal ? hernia. ? - Otherwise normal stomach. ? - Normal examined duodenum. ? - Successful completion of the ? Video Capsule Enteroscope placement. ? - No specimens collected. Recommendation: ?- Follow an antireflux regimen. ? - Await capsule results. ? - Consider Upper GI series to ? better define the hiatal hernia ? size. ? Attending Participation: ? I personally performed the entire procedure. ? Dr. Zhao Boston ___ Philip Boston MD 03/27/2022 8:55:42 AM Number of Addenda: 0 Note Initiated On: 03/27/2022 7:28 AM PROVATION 03/27/2022 7:28 AM EDT Isabela Mitchell MD [facility] documented in this encounter Visit Diagnoses Not on filedocumented in this encounter Administered Medications Inactive Administered Medications - up to 3 most recent administrations Medication Order MAR Action Action Date Dose Rate Site lactated ringers infusion 100 mL/hr, Intravenous, CONTINUOUS, Starting on Tonja 03/27/22 at 0730, Until Tonja 03/27/22 at 1132, Endoscopy (Day of Procedure) New Bag 03/27/2022 7:16 AM EDT 100 mL/hr 100 mL/hr ondansetron (pf) (Zofran) (2 mg/mL) injection 4 mg 4 mg, Intravenous, EVERY 8 HOURS PRN, Starting on Tonja 03/27/22 at 0911, Until Tonja 03/27/22 at 1132, Nausea, Endoscopy (Intra-Procedure) Given 03/27/2022 8:10 AM EDT 4 mg documented in this encounter Active and Recently Administered Medications Times are shown in EDT. Continuous Medication Order 03/25/2022 03/26/2022 03/27/2022 lactated ringers infusion 100 mL/hr, Intravenous, CONTINUOUS, Starting on Tonja 03/27/22 at 0730, Until Tonja 03/27/22 at 1132, Endoscopy (Day of Procedure) 0716 ([facility] ider: Tatiana Zamorano RN) PRN Medication Order 03/25/2022 03/26/2022 03/27/2022 benzocaine (Hurricane One) 20% spray (restricted to krystle-procedural use) (CANCELED) ONCE PRN, Starting on Tonja 03/27/22 at 0818, Until Tonja 03/27/22 at 1132, Intra-Operative (Intra-Procedure) 0818 (Given - Provid er: Devyn Saenz RN) diphenhydrAMINE (Benadryl) (50 mg/mL) injection (CANCELED) ONCE PRN, Starting on Tonja 03/27/22 at 0812, Until Tojna 03/27/22 at 1132, Intra-Operative (Intra-Procedure), Routine 08 (Given - Provid er: Devyn Saenz RN)08 (Given - Provider: Devyn Saenz RN) fentaNYL (pf) (50 mcg/mL) multi-dose injection (CANCELED) ONCE PRN, Starting on Tonja 03/27/22 at 0818, Until Tonja 03/27/22 at 1132, Intra-Operative (Intra-Procedure), Routine 0818 (Given - Provid er: Devyn Saenz RN)08 (Given - Provider: Devyn Saenz RN) midazolam (pf) (Versed) (1 mg/mL) multi-dose injection (CANCELED) ONCE PRN, Starting on Tonja 03/27/22 at 0812, Until Tonja 11/3/22 at 1132, Intra-Operative (Intra-Procedure), Routine 0812 (Given - Provid er: Devyn Saenz RN)0815 (Given - Provider: Devyn Saenz RN)0818 (Given - Provider: Devyn Saenz RN)0825 (Given - Provider: Devyn Saenz RN) ondansetron (pf) (Zofran) (2 mg/mL) injection 4 mg 4 mg, Intravenous, EVERY 8 HOURS PRN, Starting on Tonja 03/27/22 at 0911, Until Tonja 03/27/22 at 1132, Nausea, Endoscopy (Intra-Procedure) 0810 (Given - Provid er: Devyn Saenz RN) documented in this encounter Care Teams Transition Teacher Relationship Specialty Start Date End Date Isabela Mitchell MD [address] [place] [address] PCP - General Family Medicine 06/27/20 documented as of this encounter
--- OUTSIDE RECORDS SUMMARY | 2024-05-13 16:50 | XMS_ITS | Encounter Summary ---
Author Organization [facility] [place] [address] Care Team Providers Care Bean Picker Name Role Phone Isabela Mitchell MD Primary Care Provider [phone] Encounter Details Date Type Department Care Team (Late st Contact Info) Description 02/03/2022 Telephone [place] [address] Tete Cesar Social History Tobacco Use Types Packs/Day Years Used Date Smoking Tobacco: Never Smokeless Tobacco: Never Sex and Gender Information Value Date Recorded Sex Assigned at Not on file Gender Identity Not on file Sexual Orientation Not on file documented as of this encounter Miscellaneous Notes * Telephone Encounter - Tete Cesar - 02/03/2022 10:12 AM EDT Placed outgoing phone call to patient in order to schedule a procedure. Phone Call Outcome: Left voicemail asking for return call. This was the 1st attempt If the call is returned, it can be handled by: Any Endoscopy Care Director Rn Vito case in depot. Left MAURISIO # for call back. documented in this encounter Plan of Treatment Not on file documented as of this encounter Visit Diagnoses Not on filedocumented in this encounter Care Teams Bean Picker Relationship Specialty Start Date End Date Isabela Mitchell MD [address] [place] [address] PCP - General Family Medicine 06/27/20 documented as of this encounter
--- OUTSIDE RECORDS SUMMARY | 2024-05-13 16:50 | XMS_ITS | Encounter Summary ---
Author [place] [address] Care Team Providers Care Registered Public Health Nurse Name Role Phone Isabela Mitchell MD Primary Care Provider [phone] Encounter Details Date Type Department Care Team (Late st Contact Info) Description 05/15/2010 2:40 PM EST Follow-[place] [id number] Salomon Terrell MD Discharge Disposition: Home Social History Tobacco Use [...] on filedocumented in this encounter Care Teams Registered Public Health Nurse Relationship Specialty Start Date End Date Isabela Mitchell MD [address] [place] [address] PCP - General 04/16/10 05/14/11 documented as of this encounter
--- OUTSIDE RECORDS SUMMARY | 2024-05-13 16:50 | XMS_ITS | Encounter Summary ---
Author Organization [facility] [place] [address] Care Team Providers Care Firebrick Layer Name Role Phone Isabela Mitchell MD Primary Care Provider [phone] Encounter Details Date Type Department Care Team (Late st Contact Info) Description 11/08/2021 Orders [place] [address] Izabela Merlos, councilperson abdominal pain Social History Tobacco Use Types Packs/Day Years Used Date Smoking Tobacco: Never Smokeless Tobacco: Never Sex and Gender Information Value Date Recorded Sex Assigned at Not on file Gender Identity Not on file Sexual Orientation Not on file documented as of this encounter Plan of Treatment Not on file documented as of this encounter Visit Diagnoses Diagnosis Chronic abdominal pain Abdominal pain, unspecified site documented in this encounter Care Teams Firebrick Layer Relationship Specialty Start Date End Date Isabela Mitchell MD [address] [place] [address] PCP - General Family Medicine 06/27/20 documented as of this encounter
--- OUTSIDE RECORDS SUMMARY | 2024-05-13 16:50 | XMS_ITS | Encounter Summary ---
Author Organization [facility] Address [address] [place] [address] Care Team Providers Care Adjunct Psychology Professor Name Role Phone Unavailable Primary Care Provider Unavailabl e Encounter Details Date Type Department Care Team (Late st Contact Info) Description 08/14/2006 14:30 EDT Hospital Encounter [facility] [address] [place] [address] Yue Reynoso PA [address] [id number] Social History Tobacco Use Types Packs/Day Years [...]
--- OUTSIDE RECORDS SUMMARY | 2024-05-13 16:50 | XMS_ITS | Encounter Summary ---
Author Organization [facility] Address [facility] [place] [address] Care Team Providers Care Flight Engineer Name Role Phone Isabela Mitchell MD Primary Care Provider [phone] Reason for Visit * Reason Comments Travel Consult Encounter Details Date Type Department Care Team (Late st Contact Info) Description 07/21/2022 2:00 PM EST Office Visit Infectious Disease at [facility] [place] [phone] Jaycee Mullen RN Need for prophylactic vaccination and inoculation against viral hepatitis; Counseling for travel Social History Tobacco Use Types Packs/Day Years [...] as of this encounter Progress Notes * Jaycee Mullen RN - 07/21/2022 2:00 PM EST Adult Travel Clinic Reason for Visit: Lenka Landeros is a 46 y.o. female patient who comes to travel clinic today for pre-travel evaluation, vaccination and traveler's health education. Trip Details: Destination countries (list from first to last): [place]- visiting several sites throughout countryincluding [place], [place], [place] and [place]. Departure date: 09/03/22 Length of trip: 2 weeks Purpose of travel: vacation Type of environment: urban and rural Accommodations: hotel Medical History: Medical problems: Patient Active Problem List Diagnosis Code ??? CIS - Raynaud's ??? Brain tumor (benign) D33.2 ??? Fibromyalgia M79.7 Current Outpatient Medications Medication Sig Dispense Refill ??? pregabalin (LYRICA) 150 mg Capsule Take 150 mg by mouth Three times a day. ??? b complex vitamins Tablet Take 1 tablet by mouth daily. ??? SUMATRIPTAN SUCCINATE ORAL Take by mouth. ??? cyclobenzaprine (Flexeril) 10 mg Tablet Take 10 mg by mouth Once daily as needed. ??? albuteroL 90 mcg/actuation HFA Aerosol Inhaler INHALE 1 TO 2 PUFFS BY MOUTH EVERY 4 TO 6 HOURS NEEDED ??? OptiChamber Maricarmen [facility] Spacer USE DIRECTED WITH INHALER ??? EPINEPHrine 0.3 mg/0.3 mL Auto-Injector Inject 1 kit into the muscle once as needed. Inject 0.3mL IM once as needed for allergic reaction (Throat tight, difficulty breathing). Call 911 as directed. ??? acetaminophen (Tylenol) 500 mg Tablet Take 1,000 mg by mouth as needed. ??? cholecalciferol, Vitamin D3, 400 unit tablet Take 400 Units by mouth daily. ??? CIS Free Text Med - Multiple Vitamin ??? Calcium Carb-Magnesium Cmb #10 200 mg calcium- 100 mg Tablet, Chewable Take by mouth. ??? traMADoL (Ultram) 50 mg Tablet Take 50 mg by mouth Three times daily as needed. ??? azithromycin (ZITHROMAX) 500 mg Tablet Take 1 tablet by mouth daily. Take once daily for fever with diarrhea. 3 tablet 0 No current facility-administered medications for this visit. Immunosuppression: none History of adverse vaccine reactions: no History of latex, egg or beesting allergy: Multiple allergies to meds and food including PCN, peanuts, opioids, corticosteroids and codeine. Carries an epi-pen with her. or : no Patient advised to carry all medications in carry on luggage. Travel Health and Safety Issues: A discussion of travel health hazards and safety issues was done, including the following topics: traffic-accidents (alcohol, seatbelts), crime, alcohol related issues, sun exposure/heat illness, Schistosomiasis and other fresh water exposures, rabies, HIV infections, Hepatitis and other STD's, control, TB, Health Insurance coverage/[employer]. Discussed food and water precautions and patient handout provided. The following strategies were recommended for the management of traveler's diarrhea according to severity: ?? For treatment of mild diarrhea: hydration and over the counter antidiarrheal recommended. ?? For treatment of diarrhea accompanied by fever or systemic illness: hydration and empiric treatment with antibiotic recommended. A prescription for Azithromycin 500 mg daily x 3 days faxed to pharmacy. Discussed antibiotic use, resistance and colonization issues. Advised to use antibiotics only for more severe symptoms, fever or worsening diarrhea. ?? For severe or bloody diarrhea, or diarrhea accompanied by vomiting: patient advised to seek medical treatment. Vector-borne Disease Prevention Discussed insect bite prevention to reduce risk of malaria, dengue, chikungunya and other insect borne illnesses. Handout given. Malaria Risk: No malaria risk on this particular trip. Altitude: This trip does not involve high altitude. Immunizations Immunization History Administered Date(s) Administered ??? Hepatitis A Vaccine, Adult 02/12/2018, 07/21/2022 ??? Tdap Vaccine 07/30/2006, 02/12/2018 ??? Typhoid Live, Oral 02/12/2018 Immunizations given today- hepatitis A#2. 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 Rabies- discussed animal avoidance, wound care and need for post-exposure prophylaxis. Follow-up Recommendations: Patient advised to call travel clinic if they return from trip with any illness. Time spent in travel counselin minutes. Vaccine information sheets given. documented in this encounter Plan of Treatment Not on file documented as of this encounter Visit Diagnoses Diagnosis Need for prophylactic vaccination and inoculation against viral hepatitis Counseling for travel Other specified counseling documented in this encounter Care Teams Flight Engineer Relationship Specialty Start Date End Date Isabela Mitchell MD [address] [place] [address] PCP - General Family Medicine 06/27/20 documented as of this encounter
--- OUTSIDE RECORDS SUMMARY | 2024-05-13 16:50 | XMS_ITS | Encounter Summary ---
Author Organization [facility] [place] [address] Care Team Providers Care Furnace Combustion Analyst Name Role Phone Isabela Mitchell MD Primary Care Provider [phone] Encounter Details Date Type Department Care Team (Latest Contact Info) Description 07/21/2022 Travel Social History Tobacco Use Types Packs/Day Years [...] on filedocumented in this encounter Care Teams Furnace Combustion Analyst Relationship Specialty Start Date End Date Isabela Mitchell MD [address] [place] [address] PCP - General Family Medicine 06/27/20 documented as of this encounter
--- OUTSIDE RECORDS SUMMARY | 2024-05-13 16:50 | XMS_ITS | Encounter Summary ---
Author Organization [facility] [place] [address] Care Team Providers Care Screenplay Writer Name Role Phone Isabela Mitchell MD Primary Care Provider [phone] Reason for Visit * Auth/Cert Specialty Diagnoses [...] EGD, UPPER GI ENDOSCOPY Armani Hancock MD [facility] [place] [address] [facility] Referral ID Status Reason Start Date Expiration Date Visits Re quested Visits Authorized [id number] 1 1 Encounter Details Date Type Department Care Team (Late Contact Info) Description 03/27/2022 7:30 AM EDT - 03/27/2022 8:15 AM EDT Surgery [place] [address] Philip Boston MD [facility] [place] [address] VIDEO CAPSULE ENDOSCOPY (WRVU 2.24) Social History Tobacco Use Types Packs/Day Years [...] Sign Reading Time Taken Comments Blood Pressure 94/52 03/27/2022 8:15 AM EDT Pulse 52 03/27/2022 8:15 AM EDT Temperature - - Respiratory Rate 13 03/27/2022 8:15 AM EDT Oxygen Saturation 100% 03/27/2022 8:15 AM EDT Inhaled Oxygen Concentration - - Weight 97.5 kg (215 lb) 03/27/2022 7:11 AM EDT Height 170.2 cm (5' 7) 03/27/2022 7:11 AM EDT Body Mass Index 33.67 03/27/2022 7:11 AM EDT documented in this encounter Discharge Instructions * Discharge Instructions* Larry Mason RN - 03/27/2022 8:36 AM EDT Upper [...] the day after the procedure, use an uygk-mha-hyshmep spray to numb your throat. Sucking on [...] occurs, please contact your Doctor. Please call [phone] before 8pm Mon-Fri with problems, questions or concerns. If you call after 8pm or on weekends, call the Hospital at [phone] and ask to speak to the Bisque Kiln Placer education diagnostician and the spray painting machine operator will contact that person for you. When should you call for help? Call [phone] anytime you think you may need emergency [...] any problems. Where can you learn more? my[facility] View your After Visit Summary and more online at [email or web address] If you would like to provide feedback about your hospital experience, please call the Office of Patient and Family Relations at . If you have received this After Visit Summary in error, please immediately return it in person to the department, or notify the [facility] Privacy Office by calling toll free at between the hours of 8AM and 5PM to arrange for our retrieval of the documents at no cost to you. Content Version: 12.2 ?? [id number] [employer]. Care instructions adapted under license by [facility]. If you have questions about a medical condition or this instruction, always ask your healthcare professional. [employer] disclaims any warranty or liability for your [...] TO 6 HOURS NEEDED 12/22/2020 Dai Hernadez [facility] Spacer USE DIRECTED WITH INHALER 12/22/2020 EPINEPHrine [...] Jackson APRN Section of Gastroenterology [place] [address] documented in this encounter Plan of Treatment Not on file documented as of this encounter Procedures Procedure Name Priority Date/Time Associated Diagnosis Comments Upper GI Endoscopy, Diagnostic (90769) 03/27/2022 8:[address] of the abdomen Gi Imaging Intraluminal Esophagus-Ileum W/I&R (59300) 03/27/2022 8:[address] of the abdomen VIDEO CAPSULE ENDOSCOPY Routine 03/27/2022 8:00 AM EDT UPPER GI ENDOSCOPY Routine 03/27/2022 7: 28 AM EDT documented in this encounter Results * VIDEO CAPSULE ENDOSCOPY (03/27/2022 8:00 AM EDT) [facility] VIDEO CAPSULE ENDOSCOPY [facility] Endoscopy Procedure Date: 03/27/2022 8:00 AM ? Patient Name: Lenka Landeros ? N: [id number] ? Date of : 1975 ? Age: 46 ? Order #: [id number] ? Instrument Name: ? Procedure: ? Video capsule endoscopy Indications: ? Unexplained generalized abdominal ? distress/pain, Abnormal abdominal CT Patient Profile: ? This is a 46 year old female with ? history of abdominal pain and ? abnormal CT. Previous VCE was ? retained in stomach over 6 hours ? and small bowel images incomplete Providers: ? Philip Boston MD, Devyn Solaon. ? , FREDDIE, Norma Mcnair Referring MD: ?Isabela Mitchell MD [...] verified by the physician, nurse ? and soil technician in the pre-procedure ? area and [...] and naproxen (Aleve) ? as well as Mobayan (meloxicam) and ? Diclofenac. ? Attending Participation: ? I personally performed the entire procedure. ? Dr. Zhao Boston ___ Philip Boston MD 04/05/2022 1:45:09 PM Number of Addenda: 0 Note Initiated On: 03/27/2022 8:44 AM PROVATION 03/27/2022 8:00 AM EDT Isabela iMtchell MD GENERAL SURGICAL ORD ERABLES PROVATION * UPPER GI ENDOSCOPY (03/27/2022 7:28 AM EDT) UPPER GI ENDOSCOPY [facility] Endoscopy Procedure Date: 03/27/2022 7:28 AM ? Patient Name: Lenka Landeros ? Date of : 1975 ? Age: 46 ? Order #: [id number] ? Instrument Name: [id number] ? Procedure: ? Upper GI endoscopy Indications: [...] Mitchell MD GENERAL SURGICAL ORD ERABLES PROVATION documented in this encounter Visit Diagnoses Diagnosis Abnormal CT of the abdomen Nonspecific (abnormal) findings on radiological and other examination of abdominal area, including retroperitoneum documented in this encounter Administered Medications Inactive Administered Medications - up to 3 most recent administrations Medication Order MAR Action Action Date Dose Rate Site benzocaine (Hurricane One) 20% spray (restricted to krystle-procedural use) ONCE PRN, Starting on Tonja 03/27/22 at 0818, Until Thu03/27/22 at 1132, Intra-Operative (Intra-Procedure) Given 03/27/2022 8:18 AM EDT 1 spray diphenhydrAMINE (Benadryl) (50 mg/mL) injection ONCE PRN, Starting on Tonja 03/27/22 at 0812, Until Tonja 03/27/22 at 1132, Intra-Operative (Intra-Procedure), Routine Given 03/27/2022 8:25 AM EDT 25 mg Given 03/27/2022 8:12 AM EDT 25 mg fentaNYL (pf) (50 mcg/mL) multi-dose injection ONCE PRN, Starting on Tonja 03/27/22 at 0818, Until Tonja 03/27/22 at 1132, Intra-Operative (Intra-Procedure), Routine Given 03/27/2022 8:25 AM EDT 25 mcg Given 03/27/2022 8:18 AM EDT 25 mcg lactated ringers infusion 100 mL/hr, Intravenous, CONTINUOUS, Starting on Tonja 03/27/22 at 0730, Until Tonja 03/27/22 at 1132, Endoscopy (Day of Procedure) New Bag 03/27/2022 7:16 AM EDT 100 mL/hr 100 mL/hr midazolam (pf) (Versed) (1 mg/mL) multi-dose injection ONCE PRN, Starting on Tonja 03/27/22 at 0812, Until Tonja 03/27/22 at 1132, Intra-Operative (Intra-Procedure), Routine Given 03/27/2022 8:25 AM EDT 1 mg Given 03/27/2022 8:18 AM EDT 1 mg Given 03/27/2022 8:15 AM EDT 1 mg ondansetron (pf) (Zofran) (2 mg/mL) injection 4 [...] at 1132, Endoscopy (Day of Procedure) 0716 ([facility] ider: Tatiana Zamorano RN) PRN Medication Order 03/25/2022 03/26/2022 03/27/2022 benzocaine (Hurricane One) 20% spray (restricted to krystle-procedural use) (CANCELED) ONCE PRN, Starting on Tonja 03/27/22 at 0818, Until Tonja 03/27/22 at 1132, Intra-Operative (Intra-Procedure) 0818 (Given - Provid er: Devyn Saenz RN) diphenhydrAMINE (Benadryl) (50 mg/mL) injection (CANCELED) ONCE PRN, Starting on Tonja 03/27/22 at 0812, Until Tonja 03/27/22 at 1132, Intra-Operative (Intra-Procedure), Routine 08 (Given - Provid er: Devyn Saenz RN)0825 (Given - Provider: Devyn Saenz RN) fentaNYL (pf) (50 mcg/mL) multi-dose injection (CANCELED) ONCE PRN, Starting on Tonja 03/27/22 at 0818, Until Tonja 03/27/22 at 1132, Intra-Operative (Intra-Procedure), Routine 08 (Given - Provid er: Devyn Saenz RN)0825 (Given - Provider: Devyn Saenz RN) midazolam (pf) (Versed) (1 mg/mL) multi-dose injection (CANCELED) ONCE PRN, Starting on Tonja 03/27/22 at 0812, Until Tonja 03/27/22 at 1132, Intra-Operative (Intra-Procedure), Routine 0812 (Given [...] RN) documented in this encounter Care Teams Screenplay Writer Relationship Specialty Start Date End Date Isabela Mitchell MD [address] [place] [address] PCP - General Family Medicine 06/27/20 documented as of this encounter
--- OUTSIDE RECORDS SUMMARY | 2024-05-13 16:50 | XMS_ITS | Encounter Summary ---
Author Organization [facility] Address [facility] [place] [address] Care Team Providers Care Powder Carrier Name Role Phone Isabela Mitchell MD Primary Care Provider [phone] Encounter Details Date Type Department Care Team (Late st Contact Info) Description 07/20/2021 12:05 AM EST Ancillary Procedure Radiology Library at [facility] [place] [id number] Social History Tobacco Use Types Packs/Day Years Used Date Smoking Tobacco: Never Smokeless Tobacco: Never Sex and Gender Information Value Date Recorded Sex Assigned at Not on file Gender Identity Not on file Sexual Orientation Not on file documented as of this encounter Plan of Treatment Not on file documented as of this encounter Procedures Procedure Name Priority Date/Time Associated Diagnosis Comments FILM LIBRARY STORAGE ONLY CT ABDOMEN AND PELVIS STAT 07/20/2021 12:05 AM EST documented in this encounter Results * Film Library- Storage Only CT Abdomen & Pelvis (07/20/2021 12:05 AM EST) Narrative Dicom, Auditing User - 08/06/2021 7:08 AM EDT This exam is auto-finalizing. It's purpose is for storage only. Cynthia Rivas DO IMG FILM LI BRARY ORDERABLES documented in this encounter Visit Diagnoses Not on filedocumented in this encounter Care Teams Powder Carrier Relationship Specialty Start Date End Date Isabela Mitchell MD [address] [place] [address] PCP - General Family Medicine 06/27/20 documented as of this encounter
--- OUTSIDE RECORDS SUMMARY | 2024-05-13 16:50 | XMS_ITS | Encounter Summary ---
Author Organization [facility] [place] [address] Care Team Providers Care Delinquency Counselor Name Role Phone Isabela Mitchell MD Primary Care Provider [phone] Encounter Details Date Type Department Care Team (Late st Contact Info) Description 03/11/2022 Telephone [place] [address] Erica Gao Social History Tobacco Use Types Packs/Day Years Used Date Smoking Tobacco: Never Smokeless Tobacco: Never Sex and Gender Information Value Date Recorded Sex Assigned at Not on file Gender Identity Not on file Sexual Orientation Not on file documented as of this encounter Miscellaneous Notes * Telephone Encounter - Ascencion Gallego - 03/12/2022 9:34 AM EDT lvm to reschedule egd/vce d/t provider schedule change. Asked patient to call back SANA to reschedule. Spot held 03/27 Return calls can be handled by Endoscopy Scheduling * Telephone Encounter - Erica Gao - 03/11/2022 8:54 AM EDT Lvm to call and reschedule 03/17 VCE/EGD with Karissa. He is still out of town. Spot held on 03/27/ Darvin Anyone can schedule documented in this encounter Plan of Treatment Not on file documented as of this encounter Visit Diagnoses Not on filedocumented in this encounter Care Teams Delinquency Counselor Relationship Specialty Start Date End Date Isabela Mitchell MD [address] [place] [address] PCP - General Family Medicine 06/27/20 documented as of this encounter
--- OUTSIDE RECORDS SUMMARY | 2024-05-13 16:50 | XMS_ITS | Encounter Summary ---
Author Organization [facility] Address [facility] [place] [address] Care Team Providers Care Construction Foreman Name Role Phone Isabela Mitchell MD Primary Care Provider [phone] Encounter Details Date Type Department Care Team (Late st Contact Info) Description 03/21/2021 Ancillary Procedure Radiology Library at [facility] [place] [address] Isabela Mitchell MD [address] [place], [place] [id number] Social History Tobacco Use Types Packs/Day Years [...] Associated Diagnosis Comments FILM LIBRARY STORAGE ONLY MR HEAD AND SPINE Routine 03/21/2021 12:00 AM EDT documented in this encounter Results * Film Library- Storage Only MR Head and Spine (03/21/2021 12:00 AM EDT) Narrative [facility] - 03/22/2021 8:51 AM EDT This exam is auto-finalizing. It's purpose is for storage only. Isabela Mitchell MD IMG FILM LIBRARY ORD ERABLES [facility] Yared [place] documented in this encounter Visit Diagnoses Not on filedocumented in this encounter Care Teams Construction Foreman Relationship Specialty Start Date End Date Isabela Mitchell MD [address] [place] [address] PCP - General Family Medicine 06/27/20 documented as of this encounter
--- OUTSIDE RECORDS SUMMARY | 2024-05-13 16:50 | XMS_ITS | Encounter Summary ---
Author Organization [facility] Address [facility] [place] [address] Care Team Providers Care Setter Juice Packaging Machines Name Role Phone Isabela Mitchell MD Primary Care Provider [phone] Encounter Details Date Type Department Care Team (Late st Contact Info) Description 11/21/2021 3:40 PM EDT Ancillary Procedure Radiology Library at [facility] [place] [address] Isabela Mitchell MD [address] [place] [address] Social History Tobacco Use Types Packs/Day Years [...] Associated Diagnosis Comments FILM LIBRARY STORAGE ONLY DX ABDOMEN Routine 11/21/2021 3:35 PM EDT documented in this encounter Results * Film Library- Storage Only DX Abdomen (11/21/2021 3:35 PM EDT) Narrative RAD - 11/21/2021 3:35 PM EDT This exam is auto-finalizing. It's purpose is for storage only. Isabela Mitchell MD IMG FILM LIBRARY ORD ERABLES [facility] [place] documented in this encounter Visit Diagnoses Not on filedocumented in this encounter Care Teams Setter Juice Packaging Machines Relationship Specialty Start Date End Date Isabela Mitchell MD [address] [place] [address] PCP - General Family Medicine 06/27/20 documented as of this encounter
--- OUTSIDE RECORDS SUMMARY | 2024-05-13 16:50 | XMS_ITS | Encounter Summary ---
[facility] [place] [address] Care Team Providers Care Nerve Specialist Name Role Phone Isabela Mitchell MD Primary Care Provider [phone] Reason for Visit * Reason Comments Abdominal Pain Encounter Details Date Type Department Care Team (Late st Contact Info) Description 08/06/2021 4:46 AM EDT - 08/06/2021 9:33 AM EDT Emergency [place] [address] Cynthia Rivas [facility] [place] [address] Right upper quadrant pain (Primary Dx) Discharge Disposition: Home Social History Tobacco Use Types Packs/Day Years Used Date Smoking Tobacco: Never Smokeless Tobacco: Never Sex and Gender Information Value Date Recorded Sex Assigned at Not on file Gender Identity Not on file Sexual Orientation Not on file documented as of this encounter Last Filed Vital Signs Vital Sign Reading Time Taken Comments Blood Pressure 107/77 08/06/2021 9:12 AM EDT Pulse 77 08/06/2021 9:12 AM EDT Temperature 37 ??C (98.6 ??F) 08/06/2021 9:12 AM EDT Respiratory Rate 12 08/06/2021 9:12 AM EDT Oxygen Saturation 99% 08/06/2021 9:12 AM EDT Inhaled Oxygen Concentration - - Weight - - Height - - Body Mass Index - - documented in this encounter Discharge Instructions * Discharge Instructions* Jorge Alas 08/06/2021 9:10 AM EDT You were seen in the emergency department for abdominal discomfort. Fortunately, your history, physical exam, and laboratory studies are reassuring and you are safe for discharge at this time. Pleasefollow-up with the gastroenterology service for a reevaluation and for anticipated endoscopy. Return to the emergency department immediately should symptoms acutely worsen or if any other worrisome symptoms arise. * Attachments The following attachments cannot be sent through Care Everywhere. * Abdominal Pain (Nepali) documented in this encounter Medications at Time of Discharge Medication Sig Dispensed Refills Start Date End Date acetaminophen (Tylenol) 500 mg Tablet Take 1,000 mg by mouth as needed. cholecalciferol, Vitamin D3, 400 unit tablet Take 400 Units by mouth daily. albuteroL 90 mcg/actuation HFA Aerosol Inhaler INHALE 1 TO 2 PUFFS BY MOUTH EVERY 4 TO 6 HOURS NEEDED 12/22/2020 [facility] Spacer USE DIRECTED WITH INHALER 12/22/2020 EPINEPHrine [...] 05/15/2011 07/21/2022 documented as of this encounter ED Notes * Jorge Alas - 08/06/2021 5:52 AM EDT ED PROVIDER NOTE Patient: Lenka Landeros Age (): 45 y.o. (1975) SUBJECTIVE CC: Chief Complaint Patient presents with ??? Abdominal Pain HPI: Lenka Landeros is a 45 y.o. female with PMH significant for trigeminal neuralgia, shwannoma, Bellevue's, depression who presented to the ED for abdominal pain. Patient was in her usual state of health until approximately 1 month ago when she developed right-sided flank pain. She was seen at an outside hospital where she was found to have enlarged lymph nodes, 2 liver cysts, and evidence of inflammation around her small bowel in the right upper quadrant.She has been seen by her microwave technician who recommended anticipated outpatient upper endoscopy.Yesterday evening, she had recurrent right-sided pain that was significantly worse in the right upper quadrant that prompted presentation to ED today. At the time my interview, pain is predominantly in the right upper quadrant. She describes it as sharp pain. Of note, patient has had a work-up for pulmonary embolism in the past that was negative, approximately 1 month ago when symptom onset began. Hx: PMH, PSH, SH, and FH reviewed. No pertinent changes or recent events. ROS: A 10 point review of systems was performed and was negative aside from pertinent positives listed in HPI. OBJECTIVE VS: BP 107/77 (BP Location (NBP): Left arm, Patient Position: Sitting) Pulse 77 Temp 37 ??C (98.6 ??F) (Oral) Resp 12 SpO2 99% PE: General: This is a well-nourished, well-developed female who appears her stated age. Skin: Color and turgor appropriate. Head: Atraumatic and normocephalic. Neck: Symmetrical with midline trachea. Eyes: Visual acuity grossly intact. Sclera anicteric. Ears: Hearing grossly intact to normal conversation. Nose: No bleeding or discharge. Chest/Pulmonary: No respiratory distress. Breathing unlabored. Cardiovascular: Warm extremities. Normal rate. Abdomen: Right upper quadrant tenderness. No rebound or guarding. No tenderness to the left aspect of the abdomen. No tenderness to the midline spine. Musculoskeletal: No gross deformities to the extremities. Neurological: Attention, concentration, language, and fund of knowledge are within expected range. Speech is fluent with normal content. Psychiatric: Patient cooperative with appropriate behavior, thought content, and affect. ED Course: - Medications and fluid administered: Medications - No data to display - I have reviewed the labs, which are significant for: Reassuring CBC, reassuring urinalysis Recent Results (from the past 24 hour(s)) Urinalysis with reflex Culture Specimen: Clean Catch Urine Result Value Ref Range Glucose UA Negative Negative mg/dL Protein UA Negative Negative mg/dL Bilirubin UA Negative Negative mg/dL Urobilinogen UA Normal Normal mg/dL pH UA 6.0 5.0 - 8.0 Blood UA Negative Negative mg/dL Ketones UA Negative Negative mg/dL Nitrite UA Negative Negative Leukocytes UA Negative Negative mcL Appearance UA Clear Clear Spec [place] UA 1.006 1.005 - 1.030 Color UA Yellow Yellow Culture Reflexed No Comprehensive metabolic panel (non-fasting) Result Value Ref Range Glucose Lvl 98 65 - 199 mg/dL BUN 12 8 - 18 mg/dL Creatinine 0.66 (L) 0.70 - 1.20 mg/dL Sodium 139 135 - 145 mmol/L Potassium 4.3 3.5 - 5.0 mmol/L Chloride 105 98 - 107 mmol/L CO2 22 22 - 31 mmol/L Anion Gap 12 5 - 15 mmol/L Calcium 9.0 8.5 - 10.5 mg/dL Total Protein 6.5 6.1 - 8.0 g/dL Albumin 4.0 3.2 - 5.2 g/dL AST Not Perf 0 - 30 ALT 11 0 - 30 unit/L Alk Phos 40 35 - 105 unit/L Total Bilirubin 0.2 0.2 - 1.3 mg/dL Estimated GFR 107 >=60 mL/min/1.73 m?? Lipase Result Value Ref Range Lipase 40 0 - 60 unit/L Beta HCG, quantitative Result Value Ref Range Beta hCG Quant <1 mlU/ML Hemogram Result Value Ref Range WBC 6.6 4.0 - 9.5 x10(3)/mcL RBC 4.34 4.00 - 5.21 x10(6)/mcL Hemoglobin 13.5 11.7 - 15.5 g/dL Hematocrit 40.3 35.7 - 45.8 % MCV 92.9 82.6 - 94.4 fL MCH 31.1 27.1 - 32.0 pg MCHC 33.5 31.7 - 35.0 g/dL Platelets 248 145 - 357 x10(3)/mcL RDWSD 40.6 37.0 - 46.0 fL RDWCV 11.8 11.5 - 14.1 % MPV 10.7 7.6 - 12.9 fL nRBC % Auto 0.0 % nRBC Abs Auto 0.000 0.000 - 0.000 x10(3)/mcL Differential, Automated Result Value Ref Range Neutrophils % 62.7 % Neutr Abs (ANC) 4.13 1.70 - 6.10 x10(3)/mcL Lymphocytes % 27.0 % Lymphocytes Abs 1.8 0.9 - 3.2 x10(3)/mcL Monocytes % 8.8 % Monocyte Abs 0.6 0.3 - 0.9 x10(3)/mcL Eosinophils % 0.6 % Eosinophils Abs 0.0 0.0 - 0.4 x10(3)/mcL Basophils % 0.6 % Basophils Abs 0.0 0.0 - 0.1 x10(3)/mcL Immature Gran % 0.30 % Denise Gran Abs 0.02 0.00 - 0.04 x10(3)/mcL - I have reviewed the imaging, which is significant for: Possible enteritis, nonobstructive left renal calculus US Abdomen Limited Final Result Hepatic cyst otherwise normal RIGHT upper quadrant ultrasound Electronically signed by: Kavitha Mclean MD, [facility] ([phone]), at 08/06/2021 8:27 AM Thank you for letting us participate in the care of this patient. If you are a health care provider and have any questions regarding this report, please contact the number above. For patients who have questions, please contact the health child care centre manager that requested your imaging first. Kavitha Mclean, Staff Physician Electronically Signed Final Report 08/06/2021 08:34 am Request For 2nd Read CT Chest Final Result No acute thoracic pathology identified. Thank you for letting us participate in the care of this patient. If you are a health care provider and have any questions regarding this report, please contact the number below. For patients who have questions please contact the health child care centre manager that requested your imaging first. Electronically signed by: Sandrine Ahumada MD, [facility] ([phone]), at 08/06/2021 7:54 AM Request For 2nd Read CT Abdomen & Pelvis Final Result 1. Nonobstructing 2 mm left renal calculus. 2. Focal thickening of the mid ileum with mild adjacent inflammation, concerning for enteritis. I have personally reviewed the image(s) and the resident's interpretation and agree with the findings, Phong Coffman MD at 08/06/2021 10:10 AM Thank you for letting us participate in the care of this patient. If you are a health care provider and have any questions regarding this report, please contact the number below. For patients who have questions please contact the health child care centre manager that requested your imaging first. Electronically signed by: Phong Coffman MD, [facility] ([phone]), at 08/06/2021 10:10 AM Film Library- Storage Only CT Abdomen & Pelvis Final Result Film Library- Storage Only CT Chest Final Result Film Library- Storage Only CT Chest Abdomen Pelvis Final Result ASSESSMENT & PLAN MDM: Lenka Landeros is a 45 y.o. female with PMH significant for trigeminal neuralgia, shwannoma, Bellevue's, depression who presented to the ED for abdominal pain. DDX: Undifferentiated abdominal pain Patient presents with abdominal pain that has been ongoing for the past 1 month. She has been evaluated at an outside hospital where CT demonstrated evidence of possible enteritis as well as liver cysts. Second read at [facility] corroborates possible enteritis. Fortunately, patient has relatively soft abdomen. She endorses right upper quadrant discomfort and has a positive Trimble sign. For this reasonabdominal ultrasound pursued today. Fortunately, this shows no evidence of cholecystitis. Basic labs also are reassuring. Given reassuring work-up, will plan to discharge patient to home with outpatient gastroenterology follow-up. Patient is to follow-up with her home microwave technician for anticipa william endoscopy for ongoing outpatient work-up. Patient encouraged to return to the emergency part immediately should her symptoms acutely worsen or if any other worrisome symptoms arise. PLAN: Discharged to home, PCP follow-up, gastroenterology follow-up, return precautions. Jorge Alas MD 08/06/21 4:44 PM Jorge Alas MD Resident 08/06/21 [id number] Associated attestation - Cynthia Rivas DO - 08/07/2021 10:20 AM EDT ED ATTENDING ATTESTATION NOTE The patient was seen in conjunction with the resident physician. I have independently performed thekey portions of the history and physical exam. I have reviewed the nursing notes, vital signs, and all diagnostic studies personally including labs, imaging studies and EKGs. I have discussed the details of the case with the resident and agree with the assessment and plan as described in the resident note unless noted otherwise. documented in this encounter Miscellaneous Notes * ED Triage - Gavin Lowe RN - 08/06/2021 4:55 AM EDT HPI (Adult) History Obtained From: family, patient Precipitating Event(s): none Onset of Symptoms: constant Duration (Days): 30 (worsening last 3 hours.) Associated Signs/Symptoms: abdominal pain Medications/Treatments Prior to Arrival: none Pt reports that she has had abd and back pain on the right side for approximately 1 month. The painthis morning has increased to 8/10 and has become increasingly uncomfortable. The pt has a history of brain tumor and cushings syndrome. documented in this encounter Plan of Treatment Not on file documented as of this encounter Procedures Procedure Name Priority Date/Time Associated Diagnosis Comments US ABDOMEN LIMITED STAT 08/06/2021 8: 24 AM EDT REQUEST FOR 2ND READ CT CHEST STAT 08/06/2021 7:30 AM EDT REQUEST FOR 2ND READ CT ABDOMEN AND PELVIS STAT 08/06/2021 7:28 AM EDT HEMOGRAM STAT 08/06/2021 6:24 AM EDT DIFFERENTIAL, AUTOMATED STAT 08/06/2021 6:24 AM EDT HC CBC,PLT & AUTO DIFF STAT 6:24 AM EDT HC CHORIONIC GONADOTROPINS, SERUM STAT 08/06/2021 6:24 AM EDT HC LIPASE STAT 08/06/2021 6:24 AM EDT COMPREHENSIVE METABOLIC PANEL STAT 08/06/2021 6:24 AM EDT URINALYSIS WITH REFLEX CULTURE STAT 08/06/2021 4:49 AM EDT FILM LIBRARY STORAGE ONLY CT ABDOMEN AND PELVIS STAT 07/20/2021 12:05 AM EST FILM LIBRARY STORAGE ONLY CT CHEST STAT 07/20/2021 12:00 AM EST FILM LIBRARY STORAGE ONLY CT CHEST ABDOMEN PELVIS STAT 05/21/2021 12:00 AM EST documented in this encounter Results * US Abdomen Limited (08/06/2021 8:24 AM EDT) Anatomical Region Laterality Modality Abdomen Ultrasound 08/06/2021 8:17 AM EDT Impressions 08/06/2021 8:35 AM EDT Hepatic cyst otherwise normal RIGHT upper quadrant ultrasound Electronically signed by: Kavitha Mclean MD, [facility] ([phone]), at 08/06/2021 8:27 AM Thank you for letting us participate in the care of this patient. If you are a health care provider and have any questions regarding this report, please contact the number above. For patients who have questions, please contact the health child care centre manager that requested your imaging first. ? Kavitha Mclean, Staff Physician Electronically Signed Final Report ?? 08/06/2021 08:34 am Narrative 08/06/2021 8:35 AM EDT Abdominal ? (Signed Final 08/06/2021 08:34 am) PATIENT INFO: ID #: ? [id number] ?: ??[birth year] (45 yrs)(F) Name: ? LENKA Klein ?Visit Date: 08/06/2021 08:17 am ? HARRISON PERFORMED BY: Performed By: ? Leonor Hodges RDMS Attending: ?Vinay SEGURA, Kavitha Pantoja Referred By: ?KIARA WALLACE Location: ? [facility] SERVICE(S) PROVIDED: UABDLIM - Abdominal Limited Survey Single ? [id number] Organ or Quadrant - [id number] INDICATIONS: RUQ pain, colicky, worse today 8/10 in severity, worse with eating, rule out biliary pathology COMPARISON: CT Abdomen Pelvis: 07/22/21 ------ LIVER: ------ Right Lobe Length: ?? 16.9 ?? cm Echogenicity/Echotexture: ?? Normal Portal Veins: ?Hepatopetal Comment: ?Simple cyst right lobe 2.7 x 1.9 x 2.7cm GALLBLADDER: Cholelithiasis: ?No stones visualized Wall Thickness: ?0.1mm Focal Tenderness: ?Negative sonographic Trimble's sign BILIARY TRACT: Intrahepatic Ducts: ?? Normal Extrahepatic Ducts: ?? Normal --------- PANCREAS: --------- Head: ?Normal ?Size: Tail: ?Normal ?Size: Body: ?Normal ?Size: RIGHT KIDNEY: Size (cm) ?L: ??12.1 Cortical Thickness: ?Normal Cortical Echogenicity: ?? Normal Hydronephrosis: ?No sonographic evidence Comment: ?Limited visualization ---- IVC: ---- Normal in caliber where visualized. FLUID COLLECTIONS: No ascites in the imaged RUQ. Procedure Note Kavitha Mclean MD - 08/06/2021 Abdominal (Signed Final 08/06/2021 08:34 am) PATIENT INFO: ID #: [id number] : [birth year] (45 yrs)(F) Name: LENKA Klein Visit Date: 08/06/2021 08:17 am HARRISON PERFORMED BY: Performed By: Leonor Hodges RDMS Attending: Kavitha Mclean MD Referred By: KIARA WALLACE Location: [facility] SERVICE(S) PROVIDED: UABDLIM - Abdominal Limited Survey Single [id number] Organ or Quadrant - [id number] INDICATIONS: RUQ pain, colicky, worse today 01/01 in severity, worse with eating, rule out biliary pathology COMPARISON: CT Abdomen Pelvis: 07/22/21 ------ LIVER: ------ Right Lobe Length: 16.9 cm Echogenicity/Echotexture: Normal Portal Veins: Hepatopetal Comment: Simple cyst right lobe 2.7 x 1.9 x 2.7cm GALLBLADDER: Cholelithiasis: No stones visualized Wall Thickness: 0.1mm Focal Tenderness: Negative sonographic Trimble's sign BILIARY TRACT: Intrahepatic Ducts: Normal Extrahepatic Ducts: Normal --------- PANCREAS: --------- Head: Normal Size: Tail: Normal Size: Body: Normal Size: RIGHT KIDNEY: Size (cm) L: 12.1 Cortical Thickness: Normal Cortical Echogenicity: Normal Hydronephrosis: No sonographic evidence Comment: Limited visualization ---- IVC: ---- Normal in caliber where visualized. FLUID COLLECTIONS: No ascites in the imaged RUQ. IMPRESSION Hepatic cyst otherwise normal RIGHT upper quadrant ultrasound Electronically signed by: Kavitha Mclean MD, [facility] ([phone]), at 08/06/2021 8:27 AM Thank you for letting us participate in the care of this patient. If you are a health care provider and have any questions regarding this report, please contact the number above. For patients who have questions, please contact the health child care centre manager that requested your imaging first. Kavitha Mclean, Staff Physician Electronically Signed Final Report 08/06/2021 08:34 am Kiara Barrett MD IMG GEN ORDERABL ES * Request For 2nd Read CT Chest (08/06/2021 7:30 AM EDT) Anatomical Region Laterality Modality Chest SO Impressions 08/06/2021 7:54 AM EDT No acute thoracic pathology identified. Thank you for letting us participate in the care of this patient. ??If you are a health care provider and have any questions regarding this report, please contact the number below. ??For patients who have questions please contact the health child care centre manager that requested your imaging first. ? Electronically signed by: Sandrine Ahumada MD, [facility] ([phone]), at 08/06/2021 7:54 AM Narrative 08/06/2021 7:54 AM EDT EXAMINATION: REQUEST FOR 2ND READ CT CHEST CLINICAL HISTORY: 45 yo F with one month of right flank, right upper abdominal pain, seen at [facility]SH and found to have cysts on liver, presenting to [facility] [place] for ongoing pain; Sending Institution [facility]; Date of exam 20210720; I believe a reinterpretation of this exam may alter care of Patient. Yes TECHNIQUE: Axial contiguous sections were obtained through the chest via helical acquisition after the intravenous administration of Omnipaque 350 at [facility] on 07/20/2019 at 1411 hours. Coronal and sagittal reconstructions were generated. COMPARISON: 05/21/2021. FINDINGS: Pulmonary parenchyma: Mild dependent atelectasis bilaterally. Otherwise, no parenchymal pathology. Airways: No endobronchial opacities. Pleura: No pleural effusion or pneumothorax. Lymph nodes:No thoracic lymphadenopathy. Heart, pericardium, and great vessels: No pulmonary arterial filling defects. Normal contour and caliber of the central pulmonary arteries and thoracic aorta. Allowing for pulsation artifact, cardiac chamber sizes appear within normal limits and no coronary atherosclerotic calcification seen. No pericardial effusion. Other mediastinal structures: No pneumomediastinum, mediastinal fluid collection, or other significant findings. Lower neck: No significant findings. Upper abdomen: CT abdomen and pelvis reported separately. Body wall soft tissues: No significant findings. Skeletal structures: No significant findings. Procedure Note Sandrine Ahumada MD - 08/06/2021 EXAMINATION: REQUEST FOR 2ND READ CT CHEST CLINICAL HISTORY: 45 yo F with one month of right flank, right upperabdominal pain, seen at [facility]SH and found to have cysts on liver, [facility] [place] [facility] [place] [facility]; Date of exam 20210720; I believea reinterpretation of this exam may alter care of Patient. Yes TECHNIQUE: Axial contiguous sections were obtained through the chest viahelical acquisition after the intravenous administration of Omnipaque 350 at [facility] on 07/20/2019 at 1411 hours. Coronaland sagittal reconstructions were generated. COMPARISON: 05/21/2021. FINDINGS: Pulmonary parenchyma: Mild dependent atelectasis bilaterally. Otherwise,no parenchymal pathology. Airways: No endobronchial opacities. Pleura: No pleural effusion or pneumothorax. Lymph nodes:No thoracic lymphadenopathy. Heart, pericardium, and great vessels: No pulmonary arterial fillingdefects. Normal contour and caliber of the central pulmonary arteries and thoracicaorta. Allowing for pulsation artifact, cardiac chamber sizes appear withinnormal limits and no coronary atherosclerotic calcification seen. Nopericardial effusion. Other mediastinal structures: No pneumomediastinum, mediastinal fluid collection, or other significant findings. Lower neck: No significant findings. Upper abdomen: CT abdomen and pelvis reported separately. Body wall soft tissues: No significant findings. Skeletal structures: No significant findings. IMPRESSION No acute thoracic pathology identified. Thank you for letting us participate in the care of this patient. If youare a health care provider and have any questions regarding this report,please contact the number below. For patients who have questions please contactthe health child care centre manager that requested your imaging first. Electronically signed by: Sandrine Ahumada MD, [facility]([phone]), at 08/06/2021 7:54 AM Cynthia Leonor Rivas DO IMG OUTSIDE INTERPRETATION ORDERABLES * Request For 2nd Read CT Abdomen & Pelvis (08/06/2021 7:28 AM EDT) Anatomical Region Laterality Modality Abdomen, Pelvis SO Impressions 08/06/2021 10:10 AM EDT 1. ??Nonobstructing 2 mm left renal calculus. 2. ??Focal thickening of the mid ileum with mild adjacent inflammation, concerning for enteritis. I have personally reviewed the image(s) and the resident's interpretation and agree with the findings, Phong Coffman MD at 08/06/2021 10:10 AM Thank you for letting us participate in the care of this patient. ??If you are a health care provider and have any questions regarding this report, please contact the number below. ??For patients who have questions please contact the health child care centre manager that requested your imaging first. ? Electronically signed by: Phong Coffman MD, [facility] ([phone]), at 08/06/2021 10:10 AM Narrative 08/06/2021 10:10 AM EDT EXAMINATION: REQUEST FOR 2ND READ CT ABDOMEN AND PELVIS CLINICAL HISTORY: one month of right upper quadrant and right flank pain; Sending Institution [facility]; Date of exam 20210720; I believe a reinterpretation of this exam may alter care of Patient. Yes Per chart review, 45-year-old female right flank pain. Concern for possible kidney stone. TECHNIQUE: CT abdomen and pelvis without contrast. COMPARISON: Ultrasound abdomen 08/06/2021 FINDINGS: Included Lower Chest: Lungs are clear. No cardiomegaly. Liver: Normal attenuation and size. Multiple fluid attenuating benign hepatic cysts within the liver, largest measuring 3 cm within segment 8. Bile duct: Nondilated. Gallbladder: Unremarkable. Spleen: Unremarkable. Pancreas: Unremarkable. Adrenal Glands: Unremarkable. Kidney: Small 2 mm nonobstructing renal calculus within the left midpole. No collecting system dilatation. Ureters are normal in course and caliber. Urinary Bladder: Unremarkable. Vasculature: Abdominal aorta without aneurysm. IVC, portal vein and normal in caliber. Bowel: Focal segment of wall thickening within the mid ileum with mild associated fat stranding (series 8, image 31). Nondilated loops of small and large bowel. Scattered diverticulosis without diverticulitis. Appendix is partially air filled and normal. Lymph nodes: Scattered nonenlarged multiple mesenteric lymph nodes. Mesentery/Peritoneum: Mild stranding around the ileum as described above. No focal fluid collection, free air, ascites. Abdominal wall: Fat-containing umbilical hernia. Reproductive organs: Normal uterine contour with IUD in good position. Right ovary with maturing follicles. Osseous Structures: No acute abnormality identified. Procedure Note Phong Coffman MD - 08/06/2021 EXAMINATION: REQUEST FOR 2ND READ CT ABDOMEN AND PELVIS CLINICAL HISTORY: one month of right upper quadrant and right flankpain; Sending Institution [facility]; Date of exam [id number]; I believe areinterpretation of this exam may alter care of Patient. Yes Per chart review, 45-year-old female right flank pain. Concern forpossible kidney stone. TECHNIQUE: CT abdomen and pelvis without contrast. COMPARISON: Ultrasound abdomen 08/06/2021 FINDINGS: Included Lower Chest: Lungs are clear. No cardiomegaly. Liver: Normal attenuation and size. Multiple fluid attenuating benignhepatic cysts within the liver, largest measuring 3 cm within segment 8. Bile duct: Nondilated. Gallbladder: Unremarkable. Spleen: Unremarkable. Pancreas: Unremarkable. Adrenal Glands: Unremarkable. Kidney: Small 2 mm nonobstructing renal calculus within the left midpole.No collecting system dilatation. Ureters are normal in course and caliber. Urinary Bladder: Unremarkable. Vasculature: Abdominal aorta without aneurysm. IVC, portal vein and normalin caliber. Bowel: Focal segment of wall thickening within the mid ileum with mild associated fat stranding (series 8, image 31). Nondilated loops of smalland large bowel. Scattered diverticulosis without diverticulitis. Appendixis partially air filled and normal. Lymph nodes: Scattered nonenlarged multiple mesenteric lymph nodes. Mesentery/Peritoneum: Mild stranding around the ileum as described above.No focal fluid collection, free air, ascites. Abdominal wall: Fat-containing umbilical hernia. Reproductive organs: Normal uterine contour with IUD in good position.Right ovary with maturing follicles. Osseous Structures: No acute abnormality identified. IMPRESSION 1. Nonobstructing 2 mm left renal calculus. 2. Focal thickening of the mid ileum with mild adjacent inflammation, concerning for enteritis. I have personally reviewed the image(s) and the resident's interpretationand agree with the findings, Phong Coffman MD at 08/06/2021 10:10 AM Thank you for letting us participate in the care of this patient. If youare a health care provider and have any questions regarding this report,please contact the number below. For patients who have questions please contactthe health child care centre manager that requested your imaging first. Electronically signed by: Phong Coffman MD, [facility]([phone]), at 08/06/2021 10:10 AM Cynthia Rivas DO IM OUTSIDE INTERPRETATION ORDERABLES * Differential, Automated (08/06/2021 6:24 AM EDT) Neutrophil % 62.7 % [facility] Neutrophil Absolute 4.13 1.70 - 6.10 x10(3)/[facility] Lymph % 27.0 % [facility] Lymphocytes Abs 1.8 0.9 - 3.2 x10(3)/[facility] Monocyte % 8.8 % [facility] Monocyte Abs 0.6 0.3 - 0.9 x10(3)/[facility] Eos % 0.6 % [facility] Eosinophils Abs 0.0 0.0 - 0.4 x10(3)/[facility] Basophil % 0.6 % [facility] Baso Absolute 0.0 0.0 - 0.1 x10(3)/[facility] Immature Gran % 0.30 % [facility] Comment: Immature granulocytes(IG's)percentage and absolute count will include metamyelocytes, myelocytes, and promyelocytes. Blood smears from CBCs yielding IG's will be scanned manually for concordance. If this scan disagrees with the automated IG or if promyelocytes are noted, a manual differential will be performed. Immature Gran Absolute 0.02 0.00 - 0.04 x10(3)/[facility] Blood 08/06/2021 6:24 AM EDT 08/06/2021 6:38 AM EDT Narrative Resulting Agency Comment Spec In Lab Jorge Alas MD HEMATOLOGY ORDERABLE S [facility] [place] [address] * Hemogram (08/06/2021 6:24 AM EDT) White Blood Cell 6.6 4.0 - 9.5 x10(3)/[facility] Red Blood Cell 4.34 4.00 - 5.21 x10(6)/[facility] Hemoglobin 13.5 11.7 - 15.5 g/dL [facility] Hematocrit 40.3 35.7 - 45.8 % [facility] Mean Cell Volume 92.9 82.6 - 94.4 fL [facility] Mean Cell Hemoglobin 31.1 27.1 - 32.0 pg [facility] Mean Cell Hemoglobin Concentration 33.5 31.7 - 35.0 g/dL [facility] Platelet 248 145 - 357 x10(3)/[facility] RDW Standard Deviation 40.6 37.0 - 46.0 fL [facility] RDW coefficient of variation 11.8 11.5 - 14.1 % [facility] Mean Platelet Volume 10.7 7.6 - 12.9 [facility] NRBC% auto 0.0 % [facility] NRBC Absolute 0.000 0.000 - 0.000 x10(3)/[facility] Blood 08/06/2021 6:24 AM EDT 08/06/2021 6:38 AM EDT Narrative Resulting Agency Comment Spec In Lab Jorge Alas MD HEMATOLOGY ORDERABLE S [facility] [place] [address] * Beta HCG, quantitative (08/06/2021 6:24 AM EDT) Beta Human Chorionic Gonadotropin, Quantitative <1 mlU/ML [facility] Comment: REFERENCE RANGES NON- FEMALE: ??Less than 5 mIU/mL POSTMENOPAUSAL FEMALE: ??Less than 8 mIU/mL ? -- FEMALES -- Weeks of ? HCG range ??(mIU/mL) ? 3 weeks ? 5.8 - 71.2 ? 4 weeks ? 9.5 - 750 ? 5 weeks ? 217 - 7,138 ? 6 weeks ? 158 - 31,795 ? 7 weeks ? 3,697 - 163,563 ? 8 weeks ? 32,065 - 149,571 ? 9 weeks ? 63,803 - 151,410 ?10 weeks ? 46,509 - 186,977 ?12 weeks ? 27,832 - 210,612 ?14 weeks ? 13,950 - 62,530 ?15 weeks ? 12,039 - 70,971 ?16 weeks ? 9,040 - 56,451 ?17 weeks ? 8,175 - 55,868 ?18 weeks ? 8,099 - 58,176 Blood 08/06/2021 6:24 AM EDT 08/06/2021 6:38 AM EDT Narrative Resulting Agency Comment Spec In Lab Kiara Barrett MD CHEMISTRY ORDERABLE S [facility] [place] [address] * Lipase (08/06/2021 6:24 AM EDT) Lipase 40 0 - 60 unit/L [facility] Blood 08/06/2021 6:24 AM EDT 08/06/2021 6:38 AM EDT Narrative Resulting Agency Comment Spec In Lab Kiara Barrett MD CHEMISTRY ORDERABLE S Performing Organization Address City/[facility] Co de Phone Number [facility] [place] [address] * (ABNORMAL) Comprehensive metabolic panel (non-fasting) (08/06/2021 6:24 AM EDT) Glucose 98 65 - 199 mg/dL [facility] Comment:Diabetes: >=200 mg/d L plus symptoms Blood Urea Nitrogen 12 8 - 18 mg/dL [facility] Creatinine 0.66(L) 0.70 - 1.20 mg/dL [facility] Sodium 139 135 - 145 mmol/L [facility] Potassium 4.3 3.5 - 5.0 mmol/L [facility] Comment: Please note: ??Patients with WBC >100,000 may have falsely elevated Potassium levels. ??For accurate Potassium quantification in these patients send serum separator tube (gold top) for subsequent determinations. ??Contact the Clinical Chemistry Laboratory if there are any questions. Chloride 105 98 - 107 mmol/L [facility] Carbon Dioxide 22 22 - 31 mmol/L [facility] Anion Gap 12 5 - 15 mmol/L [facility] Calcium 9.0 8.5 - 10.5 mg/dL [facility] Protein, Total 6.5 6.1 - 8.0 g/dL [facility] Albumin 4.0 3.2 - 5.2 g/dL [facility] Aspartate Aminotransferase Not Perf 0 - 30 [facility] Comment: Unable to quantitate due to sample hemolysis. ??Sample redraw suggested. Called by: NORMA, Read back by: Kellie Garza, Date/Time:08/06/21 07:44. Alanine Aminotransferase 11 0 - 30 unit/L [facility] Alkaline Phosphatase 40 35 - 105 unit/L [facility] Bilirubin, Total 0.2 0.2 - 1.3 mg/dL [facility] Est Glomerular Filtration Rate 107 >=60 mL/min/1. 73 m?? [facility] Comment: This patient? s estimated [...] Lab Kiara Barrett MD CHEMISTRY ORDERABLE S [facility] [place] [address] * Urinalysis with reflex Culture (08/06/2021 4:49 AM EDT) Glucose, Urine Dipstick Negative Negative mg/dL [facility] Protein, Urine Dipstick Negative Negative mg/dL [facility] Bilirubin, Urine Dipstick Negative Negative mg/dL [facility] Comment: Clinical correlation required for positive Urine Bilirubin results as false positive may occur with some drugs and drug related products. If a false positive is suspected a serum total bilirubin should be considered if clinically indicated. Urobilinogen, Urine Dipstick Normal Normal mg/dL [facility] pH, Urn (dipstick) 6.0 5.0 - 8.0 [facility] Blood, Urine Dipstick Negative Negative mg/dL [facility] Ketone, Urine Dipstick Negative Negative mg/dL [facility] Nitrite, Urine Dipstick Negative Negative [facility] Leukocytes, Urine Dipstick Negative Negative [facility] Appearance, Urine Dipstick Clear Clear [facility] Specific [place] Urine Automated 1.006 1.005 - 1.030 [facility] Color, Urine Dipstick Yellow Yellow [facility] Reflex to Culture No [facility] Clean Catch Urine 08/06/2021 4:49 AM EDT 08/06/2021 5:01 AM EDT Narrative Resulting Agency Comment Spec In Lab Cynthia Rivas DO URINE ORDER RADHA [facility] [place] [address] * Film Library- Storage Only CT Abdomen & Pelvis (07/20/2021 12:05 AM EST) Narrative Dicom, Auditing User - 08/06/2021 7:08 AM EDT This exam is auto-finalizing. It's purpose is for storage only. Cynthia Rivas DO IMG FILM LI BRARY ORDERABLES * Film Library- Storage Only CT Chest (07/20/2021 12:00 AM EST) Narrative Dicom, Auditing User - 08/06/2021 7:06 AM EDT This exam is auto-finalizing. It's purpose is for storage only. Cynthia Ritter Atchinson DO IMG FILM LI BRARY ORDERABLES * Film Library- Storage Only CT Chest Abdomen Pelvis (05/21/2021 12:00 AM EST) Narrative Dicom, Auditing User - 08/06/2021 7:13 AM EDT This exam is auto-finalizing. It's purpose is for storage only. Cynthia Ritter Luishihowieon DO IMG FILM LI BRARY ORDERABLES documented in this encounter Visit Diagnoses Diagnosis Right upper quadrant pain- Primary Abdominal pain, right upper quadrant documented in this encounter Care Teams Nerve Specialist Relationship Specialty Start Date End Date Isabela Mitchell MD [address] [place] [address] PCP - General Family Medicine 06/27/20 documented as of this encounter
--- OUTSIDE RECORDS SUMMARY | 2024-05-13 16:50 | XMS_ITS | Encounter Summary ---
Author Organization [facility] Address [facility] [place] [address] Care Team Providers Care Installation Tech Name Role Phone Isabela Mitchell MD Primary Care Provider [phone] Encounter Details Date Type Department Care Team (Late st Contact Info) Description 08/06/2021 8:00 AM EDT Ancillary Procedure Radiology Library at [facility] [place] [address] Social History Tobacco Use Types Packs/Day Years Used Date Smoking Tobacco: Never Smokeless Tobacco: Never Sex and Gender Information Value Date Recorded Sex Assigned at Not on file Gender Identity Not on file Sexual Orientation Not on file documented as of this encounter Plan of Treatment Not on file documented as of this encounter Procedures Procedure Name Priority Date/Time Associated Diagnosis Comments REQUEST FOR 2ND READ CT ABDOMEN AND PELVIS STAT 08/06/2021 7:28 AM EDT documented in this encounter Results * Request For 2nd Read CT Abdomen [...] who have questions please contact the health animal care provider that requested your imaging first. ? Electronically signed by: Phong Coffman MD, [facility] ([phone]), at 08/06/2021 10:10 AM Narrative 08/06/2021 10:10 AM EDT EXAMINATION: REQUEST FOR 2ND READ CT ABDOMEN AND PELVIS CLINICAL HISTORY: one month of right upper quadrant and right flank pain; Sending Institution [facility]; Date of exam 20210720; I believe a [...] upper quadrant and right flankpain; Sending Institution [facility]; Date of exam [id number]; I believe areinterpretation [...] patients who have questions please contactthe health animal care provider that requested your imaging first. Cynthia Rivas DO IMG OUTSIDE INTERPRETATION ORDERABLES documented in this encounter Visit Diagnoses Not on filedocumented in this encounter Care Teams Installation Tech Relationship Specialty Start Date End Date Isabela Mitchell MD [address] [place] [address] PCP - General Family Medicine 06/27/20 documented as of this encounter
--- OUTSIDE RECORDS SUMMARY | 2024-05-13 16:50 | XMS_ITS | Encounter Summary ---
Author Organization [facility] Address [facility] [place] [address] Care Team Providers Care Early Childhood Services Coordinator Name Role Phone Isabela Mitchell MD Primary Care Provider [phone] Encounter Details Date Type Department Care Team (Late st Contact Info) Description 07/20/2021 Ancillary Procedure Radiology Library at [facility] [place] [address] Social History Tobacco Use Types Packs/Day Years [...] Diagnosis Comments FILM LIBRARY STORAGE ONLY CT CHEST STAT 07/20/2021 12:00 AM EST documented in this encounter Results * Film Library- Storage Only CT Chest (07/20/2021 12:00 AM EST) Narrative Dicom, Auditing User - 08/06/2021 7:06 AM EDT This exam is auto-finalizing. It's purpose is for storage only. Cynthia Rivas DO IMG FILM LI BRARY ORDERABLES documented in this encounter Visit Diagnoses Not on filedocumented in this encounter Care Teams Early Childhood Services Coordinator Relationship Specialty Start Date End Date Isabela Mitchell MD [address] [place] [address] PCP - General Family Medicine 06/27/20 documented as of this encounter
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
--- OUTSIDE RECORDS SUMMARY | 2024-05-13 16:50 | XMS_ITS | Encounter Summary ---
Author Organization [facility] Address [place] [address] Care Team Providers Care Director Of Revenue Name Role Phone Isabela Mitchell MD Primary Care Provider [phone] Encounter Details Date Type Department Care Team (Late st Contact Info) Description 11/07/2021 7:30 AM EDT - 11/07/2021 8:00 AM EDT [place] [address] Armani Hancock MD [facility] [place] [address] VIDEO CAPSULE ENDOSCOPY (WRVU 2.24) Social History [...] filedocumented in this encounter Care Teams Director Of Revenue Relationship Specialty Start Date End Date Isabela Mitchell MD [address] [place] [address] PCP - General Family Medicine 06/27/20 documented as of this encounter
--- OUTSIDE RECORDS SUMMARY | 2024-05-13 16:50 | XMS_ITS | Encounter Summary ---
Author Organization [facility] [place] [address] Care Team Providers Care Human Resources Supervisor Name Role Phone Isabela Mitchell MD Primary Care Provider [phone] Encounter Details Date Type Department Care Team (Latest Contact Info) Description 02/19/2023 Travel Social History Tobacco Use Types Packs/Day [...] on filedocumented in this encounter Care Teams Human Resources Supervisor Relationship Specialty Start Date End Date Isabela Mitchell MD [address] [place] [address] PCP - General Family Medicine 06/27/20 documented as of this encounter
--- OUTSIDE RECORDS SUMMARY | 2024-05-13 16:50 | XMS_ITS | Encounter Summary ---
Author Organization [facility] Address [address] [place] [address] Care Team Providers Care Test Development Engineer Name Role Phone Unavailable Primary Care Provider Unavailabl e Encounter Details Date Type Department Care Team ([facility] st Contact Info) Description 08/14/2006 Before PRISM Converted Visit (Maple) [facility] - Maple conversion [address] [place] [address] Yue Reynoso, AG [address] [id number] Social History Tobacco Use Types Packs/Day Years Used Date Smoking Tobacco: Never Assessed Comments Unknown Sex and Gender Information Value Date Recorded Sex Assigned at Not on file Legal Sex Female 18:40 EST Gender Identity Female 05/01/2021 9:25 EST Sexual Orientation Not on file documented as of this encounter Plan of Treatment Not on file documented as of this encounter Visit Diagnoses * Evaluation - Yue Perales MD - 03/27/2009 1155 EST DIVISION OF DERMATOLOGY NEW PATIENT EVALUATION - 08/14/2006 SUBJECTIVE This 30-year-old white female presents to the clinic today in initial visit for evaluation of itchyskin. Patient states that she has a history of eczema during her . She is originally from [place]. She moved to [place] eight years ago for about three years, but then again moved away and returned about two years ago. She states that usually in the fall into wintertime she gets diffuse itching which seems to be underneath the skin . She tries to moisturize diligently. She does, however,wash with soap and water her entire body. She tries to avoid hot steamy showers. She does wear woolclothing. She has a history of hay fever allergies and asthma. She was started on Zyrtec not too long ago and has noted that the itching which is usually worse at nighttime is significantly better and does not bother her as much, so that she is able to sleep peacefully at night. She continues to itch. The itch started originally on her legs, around her knees and thighs and now her torso is diffusely itchy. She also would like to know what she should do about her acne. She gets around her mensesonly, these larger, cystic-like lesions along her cheeks, jawline and chin. She states that her face is usually pretty oily. 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 Therefore she understands how to take care of her skin using noncomedogenic products. She states that today is a good day for her and the majority of her acne is on the face, as above described. She also would like toknow what she could do about loose skin around her abdomen now that she has lost weight after having four children. She would like to know if there is anything that can help tighten up her skin other than just exercise alone. She otherwise is well. She has no other questions or concerns in refe rence to her skin, denies any constitutional symptoms today. complete past medical history, current medications, medication allergies, review of systems, familyhistory and social history, please see the Dermatology Intake Sheet in the chart. OBJECTIVE On exam this is an otherwise very pleasant 30 -year-old, fair-skinned, white female in no apparent distress with appropriate affect and demeanor. On examination of her face, she does have a somewhat oily texture a few only open and closed comedos. A little bit on the temples, a little bit more on the chin and she has one inflammatory papule along the right neck. Her skin is a little bit dry but not overly so, and scattered diffusely on the posterior lateral arms and anterior thigh she has numerous, less than 1 mm gates and pink macules and papules, the majority of which are folliculocentric. The remainder of her cutaneous exam is otherwise unremarkable. ASSESSMENT 1. Atopic dermatitis. 2. Mild acne. 3. Keratosis pilaris. PLAN 1. Patient education and reassurance. Patient was given a prescription for triamcinolone 0.1% with 0.25% menthol, in Lubriderm lotion. She may apply this once to twice daily to the areas where she isthe itchiest on the legs and on the torso for the next couple of weeks and then cut back to two to three times per week. She understands that most likely this will continue to get better over the springtime. 2. Patient was given a prescription for BenzaClin 25 gm with 3 refills. She is to apply this twice daily to the areas where she gets the pimples i.e. on her cheeks and chin, as well as the jawline and neck. 3. Patient was given a handout on sensitive skin. She is to stop washing her entire body with soap and water. She will follow up in three months for reevaluation. She may return in the interim if problems arise. She showed a good understanding of the above conversation. Signed by Alba Tidwell MD 09/06/2006 17:57 Reviewed by Yue Perales PA-C 08/18/2006 11:46 French Leger PA-CKathryn Schwarzenberger, MD Dictated by: Yue Perales PA-C Alba Tidwell MD - Yue Perales PA-C P - dd Job ID: [id number] Document ID: [id number] cc: Leonor Parish MD documented in this encounter
--- OUTSIDE RECORDS SUMMARY | 2024-05-13 16:50 | XMS_ITS | Encounter Summary ---
[place] [address] Care Team Providers Care Program Counselor Name Role Phone Isabela Mitchell MD Primary Care Provider [phone] Reason for Visit * Reason Comments Medication Refill naproxen 500mg twice daily prn Encounter Details Date Type Department Care Team (Late st Contact Info) Description 02/21/2011 [place] [phone] Salomon Terrell MD Social History Tobacco Use Types Packs/Day Years Used Date Smoking Tobacco: Never Assessed Sex and Gender Information Value Date Recorded Sex Assigned at Not on file Gender Identity Not on file Sexual Orientation Not on file documented as of this encounter Plan of Treatment Not on file documented as of this encounter Visit Diagnoses Not on filedocumented in this encounter Care Teams Program Counselor Relationship Specialty Start Date End Date Isabela Mitchell MD [address] [place] [address] PCP - General 04/16/10 05/14/11 documented as of this encounter
--- OUTSIDE RECORDS SUMMARY | 2024-05-13 16:50 | XMS_ITS | Encounter Summary ---
Author Organization [facility] Address [facility] [place] [address] Care Team Providers Care Dynamicist Name Role Phone Isabela Mitchell MD Primary Care Provider [phone] Reason for Visit * Consultation (Routine) - Specialty Diagnoses / Procedures Referred By Nickie alarcon Referred To Contact Ophthalmology Diagnoses routine eye exam/schwannoma Jagjit Brink MD [address] [place] [phone] Shelley Peralta MD [facility] [place] [address] Referral ID Status Reason Start Date Expiration Date V isits Requested Visits Authorized [id number] Consult, Test & Treat 07/03/2021 07/03/2022 1 1 Encounter Details Date Type Department Care Team (Late st Contact Info) Description 12/30/2021 8:30 AM EDT Office [place] [address] Shelley Peralta MD [facility] [place] [address] Schwannoma Social History Tobacco Use Types Packs/Day Years Used Date Smoking Tobacco: Never Smokeless Tobacco: Never Sex and Gender Information Value Date Recorded Sex Assigned at Not on file Gender Identity Not on file Sexual Orientation Not on file documented as of this encounter Progress Notes * Cyndi Childs MD - 12/30/2021 8:30 AM EDT Assessment/Plan: Lenka Landeros is a 46 year old woman with bilateral trigeminal neuralgia OD > OS found to have a brain 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 Genetic testing planned for January. On examination today, Lenka exhibited normal visual function, color vision, with no evidence ofa relative afferent pupillary defect that would suggest an underlying optic nerve dysfunction. The intraocular pressures were normal in each eye. Static visual delarosa were full bilaterally. Sensorimotor examination revealed full extraocular movements in each eye. Lenka was orthophoric in all directions of gaze. Dilated eye examination revealed normal anterior segment structures. There were no lisch nodules identified. The optic nerves are healthy and pink.The maculae and peripheral retina was normal in eacheye. The OCT revealed normal RNFL of both optic nerves. No evidence of NF noted. Normal neuro-ophthalmic exam. Dry eye OU Contact lens wearer - recommend ATs Follow up: with local furnace tapper annually Findings and concerns discussed with Lenka and they expressed understanding. Cyndi Childs MD [facility] Ophthalmology PGY2 [id number] I saw the patient with the following level of supervision from the attending: Direct from Dr. Crenshaw. * Shelley Crenshaw MD - 12/30/2021 8:30 AM EDT Ophthalmology Attending Attestation I saw and evaluated Lenka Landeros with Dr. Childs, ophthalmology resident. I have reviewed themedical records and the patient's history during the visit and I agree with the details as written.My physical examination confirms the findings. The assessment and plan were formulated in discussion with me at the time of the visit and I agree with them as documented. Shelley Crenshaw MD [facility] Department of Surgery, Ophthalmology [facility] documented in this encounter Plan of Treatment Not on file documented as of this encounter Procedures Procedure Name Priority Date/Time Associated Diagnosis Comments AUTOMATED VISUAL FIELD - EXTENDED - OU- BOTH EYES Routine 12/30/2021 10:14 AM EDT Schwannoma OCT OPTIC NERVE - OU - BOTH EYES Routine 12/30/2021 9:53 AM EDT Schwannoma OCT RETINA - OU - BOTH EYES Routine 12/30/2021 9:52 AM EDT Schwannoma documented in this encounter Results * Automated Visual Field - Extended - OU - Both Eyes (12/30/2021 10:14 AM EDT) Anatomical Region Laterality Modality Other Narrative 12/30/2021 2:55 PM EDT Right Eye Threshold was 24-2. Strategy was LISA. Reliability was good. Progression has no prior data. Foveal threshold was normal. Findings include normal observations. Left Eye Threshold was 24-2. Strategy was LISA. Reliability was good. Progression has no prior data. Foveal threshold was normal. Findings include non-specific defects. Shelley Peralta MD OPHTHALMOLOGY SE RVICES ORDERABLES * Oct Optic Nerve - OU - Both Eyes (12/30/2021 9:53 AM EDT) Anatomical Region Laterality Modality Other Narrative 12/30/2021 2:55 PM EDT Right Eye Quality was good. Progression has no prior data. Findings include normal observations. Temporal thickness was normal. Superior thickness was normal. Nasal thickness was normal. Inferior thickness was normal. Left Eye Quality was good. Progression has no prior data. Findings include normal observations. Temporal thickness was normal. Superior thickness was normal. Nasal thickness was normal. Inferior thickness was normal. Shleley Peralta MD OPHTHALMOLOGY SE RVICES ORDERABLES * OCT Retina - OU - Both Eyes (12/30/2021 9:52 AM EDT) Anatomical Region Laterality Modality Other Narrative 12/30/2021 2:56 PM EDT Right Eye Quality was good. Progression has no prior data. Findings include normal observations. Left Eye Quality was good. Progression has no prior data. Findings include normal observations. Notes No ERM OU Shelley Peralta MD OPHTHALMOLOGY SE RVICES ORDERABLES documented in this encounter Visit Diagnoses Diagnosis Schwannoma Other benign neoplasm of connective and other soft tissue of unspecified site documented in this encounter Care Teams Dynamicist Relationship Specialty Start Date End Date Isabela Mitchell MD [address] [place] [address] PCP - General Family Medicine 06/27/20 documented as of this encounter
--- OUTSIDE RECORDS SUMMARY | 2024-05-13 16:50 | XMS_ITS | Encounter Summary ---
Author Organization [facility] Address [facility] [place] [address] Care Team Providers Care Glue Specialty Supervisor Name Role Phone Isabela Mitchell MD Primary Care Provider [phone] Encounter Details Date Type Department Care Team (Late st Contact Info) Description 12/16/2021 [place] [address] Shelley Peralta MD [facility] [place] [address] Social History Tobacco Use Types Packs/Day Years [...] on filedocumented in this encounter Care Teams Glue Specialty Supervisor Relationship Specialty Start Date End Date Isabela Mitchell MD [address] [place] [address] PCP - General Family Medicine 06/27/20 documented as of this encounter
--- OUTSIDE RECORDS SUMMARY | 2024-05-13 16:50 | XMS_ITS | Encounter Summary ---
Author Organization [facility] Address [facility] [place] [address] Care Team Providers Care Retail Department Manager Name Role Phone Isabela Mitchell MD Primary Care Provider Reason for Visit * Auth/Cert Specialty Diagnoses / Procedures Referred By Nickie t Referred To Contact Diagnoses Abnormal MRI inflammation on MRI Procedures PRG GI IMAGING INTRALUMINAL ESOPHAGUS-ILEUM W/I&R VIDEO CAPSULE ENDOSCOPY Referral ID Status Reason Start Date Expiration Date Visits Re quested Visits Authorized [id number] 1 1 Encounter Details Date Type Department Care Team (Latest Contact Info) Description 11/07/2021 7:23 AM EDT - 11/07/2021 4:40 PM EDT Hospital En[place] [address] Armani Hancock MD [facility] [place] [address] Discharge Disposition: Home Social History Tobacco Use [...] TO 6 HOURS NEEDED 12/22/2020 Dai Hernadez [facility] Spacer USE DIRECTED WITH INHALER [...] H&P Notes * Stephen Jackson APRN - 11/07/2021 7:42 AM EDT Patient Name: Lenka Landeros Patient Age: 45 y.o. Birthdate: 1975 Admit date: 11/07/2021 Attending Physician: Armani Hancock MD Gastroenterology and Hepatology Pre-Procedure History and Physical Exam Procedure: Capsule endoscopy: Indication: Epigastric pain, RLQ pain, loose stools, nausea, abnormal CT revealing thickening of the mid ileum, colonoscopy revealed aphthous ulcer ulcer in TI Patient Active Problem List Diagnosis Code ??? CIS - Raynaud's ??? Other chronic pain G89.29 EXAM: HEENT: Airway examined, oropharynx clear Mallampati Score: II (soft palate, uvula, fauces visible) LUNGS: Clear to auscultation HEART: Regular rate and rhythm, normal S1, S2 ABDOMEN: Normal bowel sounds, soft, tender to palpation epigastric and RLQ, non distended A/P Proceed with the planned endoscopic procedure. ASA 2 - Patient with mild systemic disease with no functional limitations Sedation Plan: no sedation Risks and benefits of the procedure explained to the patient. Consent signed. Stephen Jackson APRN Section of Gastroenterology and Hepatology [facility] [place] [address] documented in this encounter Plan of Treatment Not on file documented as of this encounter Procedures Procedure Name Priority Date/Time Associated Diagnosis Comments VIDEO CAPSULE ENDOSCOPY Routine 11/07/2021 7:57 AM EDT documented in this encounter Results * VIDEO CAPSULE ENDOSCOPY (11/07/2021 7:57 AM EDT) Pathologist [facility] VIDEO CAPSULE ENDOSCOPY [facility] Endoscopy Procedure Date: 11/07/2021 7:57 AM ? Patient Name: Lenka Landeros ? Date of : 1975 ? Age: 45 ? Order #: [id number] ? Instrument Name: ? Procedure: ? Video capsule endoscopy Indications: ? Unexplained abdominal ? distress/pain, Ileal inflammation ? on CT scan, assess small bowel Providers: ? Armani Hancock MD, Irving ? Tana Referring : ?Isabela Mitchell MD, Jose Ramirez MD Medicines: ? None Complications: ? No immediate complications. Procedure: ? The video capsule endoscopy was ? accomplished without difficulty. ? The patient tolerated the procedure ? well. ? Findings: ? Images of the esophagus, stomach and small bowel were ? obtained from the swallowed capsule and reviewed. ? The small bowel transit time was 2 hours and 21 ? minutes. The capsule does not reach the cecum ? The duodenum was normal. ? The jejunum was normal. ? The ileum was normal. ? The distal small bowel as not visualized ? Moderate Sedation: ? Not applicable, no sedation required. Impression: ?- Normal duodenum. ? - Normal jejunum. ? - Normal ileum. Video ends after 8 ? hours and does not reach cecum so ? distal small bowel was not evaluated ? No inflammation or stenosis ? visualized Recommendation: ?Check KUB in two weeks to assure ? passage of the capsule ? Attending Participation: ? I personally performed the entire procedure. ? ___ Armani Hancock MD 11/08/2021 11:40:51 AM This report has been signed electronically. Number of Addenda: 0 Note Initiated On: 11/07/2021 7:57 AM PROVATION 11/07/2021 7:57 AM EDT Jose Ramirez DO GENERAL SURGICAL ORD ERABLES PROVATION documented in this encounter Visit Diagnoses Not on filedocumented in this encounter Care Teams Retail Department Manager Relationship Specialty Start Date End Date Isabela Mitchell MD [address] [place] [address] PCP - General Family Medicine 06/27/20 documented as of this encounter
--- OUTSIDE RECORDS SUMMARY | 2024-05-13 16:50 | XMS_ITS | Encounter Summary ---
Author Organization [facility] Address [facility] [place] [address] Care Team Providers Care Activated Sludge Attendant Name Role Phone Isabela Mitchell MD Primary Care Provider [phone] Encounter Details Date Type Department Care Team (Late st Contact Info) Description 05/21/2021 Ancillary Procedure Radiology Library [place] [facility] [address] Social History Tobacco Use Types Packs/Day Years [...] Comments FILM LIBRARY STORAGE ONLY CT CHEST ABDOMEN [...] on filedocumented in this encounter Care Teams Activated Sludge Attendant Relationship Specialty Start Date End Date Isabela Mitchell MD [address] [place] [address] PCP - General Family Medicine 06/27/20 documented as of this encounter
--- OUTSIDE RECORDS SUMMARY | 2024-05-13 16:50 | XMS_ITS | Encounter Summary ---
Author Organization [facility] Address [facility] [place] [address] Care Team Providers Care Paving Foreman Name Role Phone Leonor Parish MD Primary Care Provider [phone] Reason for Visit * Reason Comments Travel Consult Encounter Details Date Type Department Care Team (Late st Contact Info) Description 02/12/2018 2:30 PM EDT Office [place] [address] Erica Longoria, RN [facility] [place] [address] Other specified counseling; Healthcare maintenance Social History Tobacco Use Types Packs/Day Years Used Date Smoking Tobacco: Never Smokeless Tobacco: Never Sex and Gender Information Value Date Recorded Sex Assigned at Not on file Gender Identity Not on file Sexual Orientation Not on file documented as of this encounter Progress Notes * Erica Longoria RN - 02/12/2018 2:30 PM EDT Adult Travel Clinic Reason for Visit: Ms. Landeros is a 42 y.o. patient who comes to travel clinic today for pre-travel evaluation, vaccination and traveler's health education. She is accompanied by her . Trip Details: Destination countries (list from first to last): [facility], (3 days), [facility], (7 days) , [facility] Departure date: Mar 12 Length of trip: 12days Purpose of travel: safari Type of environment: urban and tourist rural Accommodations: lodge Medical History: Medical problems: Patient Active Problem List Diagnosis Code ??? CIS - Raynaud's ??? Other chronic pain G89.29 Current Outpatient Prescriptions Medication Sig Dispense Refill ??? naproxen (NAPROSYN) 500 mg tablet Take 1 tablet by mouth 2 times daily (with meals). 180 tablet2 ??? OMEGA-3 FATTY ACIDS (FISH OIL CONCENTRATE ORAL) Take by mouth. ??? cholecalciferol, Vitamin D3, 400 unit tablet Take 400 Units by mouth daily. ??? CIS Free Text Med - Multiple Vitamin (Patient not taking: No sig reported) No current facility-administered medications for this visit. Immunosuppression: none History of adverse vaccine reactions: no History of latex, egg or beesting allergy: none or : no, not intending in the foreseeable future Patient advised to carry all medications in carry on luggage. Travel Health and Safety Issues: A discussion of travel health hazards and safety issues was done, including the following topics: traffic-accidents (alcohol, seatbelts), crime, alcohol related issues, sun exposure/heat illness, Schistosomiasis and other fresh water exposures, rabies, control, TB, DVT prevention, Health Insurance coverage/[employer]. Discussed food and water [...] x 3 days faxed to pharmacy. Discussed pros/cons of self treatment with one 500 mg dose of azithromycin (cons including rare side effects, drug drug interactions and disruption of normal gastric lidia). Advised to reserve its use to bad diarrhea accompanied by fever/illness and no ready access to medical care. ?? For severe or bloody diarrhea, or diarrhea accompanied by vomiting: patient advised to seek medical treatment. Vector-borne Disease Prevention Discussed insect bite prevention to reduce risk of malaria, dengue and other insect borne illnesses. Handout given. Malaria Risk: Malaria risk in country (ies) visited, but not high enough risk on this itinerary to warrant chemoprophylaxis. Altitude: This trip does not involve high altitude. Immunizations Immunization History Administered Date(s) Administered ??? Tdap Vaccine 07/30/2006 Had usual childhood vaccines. Had chicken pox illness Has documented + serology to MMR. Today Tdap Hep A #1 Oral typhoid Rabies - discussed animal avoidance, wound care and need for post-exposure prophylaxis. YF - not required or recommended for this destination. Follow-up Recommendations: She should get a flu shot before travel. She will need a second hepatitis a vaccine in 6-12 months Patient advised to call travel clinic if they return from trip with any illness. Time spent in travel counselin min with Vaccine information sheets given. documented in this encounter Plan of Treatment Not on file documented as of this encounter Visit Diagnoses Diagnosis Other specified counseling Healthcare maintenance Routine general medical examination at a health care facility documented in this encounter Care Teams Paving Foreman Relationship Specialty Start Date End Date Leonor Parish MD [address] [place] [id number] PCP - General 05/15/11 06/26/20 documented as of this encounter
--- OUTSIDE RECORDS SUMMARY | 2024-05-13 16:50 | XMS_ITS | Encounter Summary ---
Author Organization Formerly [facility], Later [facility] Address [facility] [place] [address] Care Team Providers Care Waste Elimination Name Role Phone Isabela Mitchell MD Primary Care Provider [phone] Encounter Details Date Type Department Care Team (Late st Contact Info) Description 08/06/2021 8:05 AM EDT Ancillary Procedure Radiology Library at [facility] [place] [address] Social History Tobacco Use Types Packs/Day Years [...] Diagnosis Comments REQUEST FOR 2ND READ CT CHEST STAT 08/06/2021 7:30 AM EDT documented in this encounter Results * Request For 2nd Read CT Chest [...] who have questions please contact the health care giver that requested your imaging first. ? Narrative 08/06/2021 7:54 AM EDT EXAMINATION: REQUEST FOR 2ND READ CT CHEST CLINICAL HISTORY: 45 yo F with one month of right flank, right upper abdominal pain, seen at [facility]SH and found to have cysts on liver, presenting to [facility] for ongoing pain; Sending Institution [facility]; Date of exam [id number]; I believe a reinterpretation of this exam may alter care of Patient. Yes TECHNIQUE: Axial contiguous sections were obtained through the chest via helical acquisition after the intravenous administration of Omnipaque 350 at [facility] on 07/20/2019 at 1411 hours. Coronal [...] to have cysts on liver, [facility]; Sending Institution [facility]; Date of exam [id number]; I believea reinterpretation of this exam may alter care of Patient. Yes TECHNIQUE: Axial contiguous sections were obtained through the chest viahelical acquisition after the intravenous administration of Omnipaque 350 at [facility] on 07/20/2019 at 1411 hours. [place] [...] patients who have questions please contactthe health care giver that requested your imaging first. Electronically signed by: Sandrine Ahumada MD, [facility]([phone]), at 08/06/2021 7:54 AM Cynthia Rivas DO IMG OUTSIDE INTERPRETATION ORDERABLES documented in this encounter Visit Diagnoses Not on filedocumented in this encounter Care Teams Waste Elimination Relationship Specialty Start Date End Date Isabela Mitchell MD [address] [place] [address] PCP - General Family Medicine 06/27/20 documented as of this encounter
--- OUTSIDE RECORDS SUMMARY | 2024-05-13 16:50 | XMS_ITS | Encounter Summary ---
[place] [address] Care Team Providers Care Wrapper Layer And Examiner Soft Work Name Role Phone Isabela Mitchell MD Primary Care Provider [phone] Encounter Details Date Type Department Care Team (Late st Contact Info) Description 06/06/2010 12:30 PM EST Evaluation [place] [address] Discharge Disposition: Home Social History Tobacco Use [...] on filedocumented in this encounter Care Teams Wrapper Layer And Examiner Soft Work Relationship Specialty Start Date End Date Isabela Mitchell MD [address] [place] [address] PCP - General 04/16/10 05/14/11 documented as of this encounter
[2024-05-13 21:18] LABS: HCT 44.3 % (36.0-46.0); HGB 14.4 g/dL (11.2-15.7); MCHC 32.5 % (32.0-36.0); MCV 92 fL (80-95); MPV 10.9 fL (8.0-11.0); Platelet Count 269 10^3/uL (130-400); RDW 13.2 % (11.7-14.6); RDW-SD 44.9 fL; WBC 7.18 10^3/uL (4.4-10.8)
[2024-05-13 21:28] LABS: ALT 12 U/L (14-59); AST 12 U/L (15-37); Albumin 3.8 g/dL (3.4-5.0); Alkaline Phosphatase 55 U/L (46-116); Anion Gap 6.4 mmol/L (3-11); BUN 12 mg/dL (7-18); Bilirubin, Total 0.56 mg/dL (0.2-1.0); CO2 29.6 mmol/L (21.0-32.0); CREATININE 0.8 mg/dL (0.55-1.02); Calcium 9.3 mg/dL (8.5-10.1); Chloride 105 mmol/L (98-107); Glucose 80 mg/dL (74-106); Potassium 4.2 mmol/L (3.5-5.1); Sodium 141 mmol/L (136-145)
[2024-05-13 21:53] LABS: Absolute Basophil Count 0.07 10^3/uL (0.0-0.2); Absolute Eosinophil Count 0.07 10^3/uL (0.0-0.7); Absolute Lymphocyte Count 2.44 10^3/uL (1.2-3.4); Absolute Neutrophil Count 4.09 10^3/uL (1.2-6.7)
[2024-05-13 21:54] LABS: Diff Comment Manual Differential; RBC Morphology Normal
== END 2024-05-13 16:48 | disposition home or self-care (01) ==
LOC: NCHCN 16:47
PROVIDERS: PCP Family Medicine; Visit Provider Nurse Practitioner Family
DX: R10.9 Unspecified abdominal pain (principal)
CPT/HCPCS: 80053; 85025; 87086

== ENCOUNTER 2024-07-12 02:36 | Outpatient (CLI) | payer BC, SELFPAY ==
--- NOTE | 2024-07-12 06:30 | DI.RAD_ITS ---
Exam(s) XR FOOT RT COMPLETE EXAM: XR FOOT RT COMPLETE CLINICAL HISTORY: Right foot pain,M79.671. TECHNIQUE: 2D digital imaging was performed of the right foot. Three images were obtained. AP, obl ique and lateral views were obtained. COMPARISON: No exams were available for comparison FINDINGS: BONES: No acute fracture is present. No bony destructive lesion is seen. JOINTS: No dislocation present. The joint spaces are well maintained with minimal degenerative change s present. SOFT TISSUE: Normal. IMPRESSION: No acute abnormality. DATA REPOSITORY: RADIATION DOSE DELIVERED:
== END 2024-07-12 02:56 ==
LOC: DI 02:36
PROVIDERS: PCP Family Medicine; Visit Provider Podiatrist
DX: M79.671 Pain in right foot (principal)
CPT/HCPCS: 73630

== ENCOUNTER 2024-07-25 12:24 | Outpatient (REF) | payer BC, SELFPAY ==
[2024-07-25 15:28] LABS: HCT 45.2 % (36.0-46.0); HGB 14.9 g/dL (11.2-15.7); MCV 91 fL (80-95); MPV 11.6 fL (8.0-11.0); Platelet Count 241 10^3/uL (130-400); RBC 4.97 10^6/uL (3.93-5.22); RDW 13.2 % (11.7-14.6); RDW-SD 44.2 fL; WBC 5.81 10^3/uL (4.4-10.8)
[2024-07-25 16:11] LABS: Hemoglobin A1C 5.3 % (<5.7)
[2024-07-25 16:49] LABS: ALT 18 U/L (14-59); AST 17 U/L (15-37); Albumin 3.7 g/dL (3.4-5.0); Alkaline Phosphatase 50 U/L (46-116); Anion Gap 9.1 mmol/L (3-11); BUN 17 mg/dL (7-18); CO2 27.9 mmol/L (21.0-32.0); CREATININE 0.8 mg/dL (0.55-1.02); Calcium 9.2 mg/dL (8.5-10.1); Calculated LDL 176 mg/dL (<100); Chloride 106 mmol/L (98-107); Cholesterol 245 mg/dL (<200); Glucose 93 mg/dL (74-106); HDL Cholesterol 59 mg/dL (>or=50); Potassium 4.4 mmol/L (3.5-5.1); Sodium 143 mmol/L (136-145); Triglyceride 54 mg/dL (<150)
== END 2024-07-25 12:25 | disposition home or self-care (01) ==
LOC: NCHCN 12:24
PROVIDERS: PCP Physician Assistant; Visit Provider Physician Assistant
DX: E24.2 Drug-induced Cushing's syndrome (principal); Z13.1 Encounter for screening for diabetes mellitus; Z13.220 Encounter for screening for lipoid disorders; K57.32 Diverticulitis of large intestine without perforation or abscess without bleeding
CPT/HCPCS: 80053; 80061; 85027; 83036